=== PATIENT | female | born 1970 | race Caucasian/White ===

== ENCOUNTER 2017-02-17 09:55 | Emergency (ER) | payer MEDICAID ==
[~2017-02-17] VITALS: Ht 157.5 cm; Wt 59.0 kg
[2017-02-17] MEDS ORDERED: KETOROLAC TROMETHAMINE 60 MG/2 ML VIAL IM ONE (10:30)
[2017-02-17] MEDS ORDERED: METHOCARBAMOL 500 MG TABLET PO ONE (10:30)
[2017-02-17 10:58] VITALS: BP 122/70
== END 2017-02-17 11:00 | disposition home or self-care (01) ==
LOC: EMS 09:56
DX: S16.1XXA Strain of muscle, fascia and tendon at neck level, initial encounter (principal); X58.XXXA Exposure to other specified factors, initial encounter; Y93.89 Activity, other specified; Y92.098 Other place in other non-institutional residence as the place of occurrence of the external cause; Y99.8 Other external cause status
CPT/HCPCS: 96372; 99283; J1885

== ENCOUNTER 2017-03-23 23:05 | Emergency (ER) | payer MEDICAID ==
[~2017-03-23] VITALS: Ht 157.5 cm; Wt 50.0 kg
[2017-03-24 00:27] VITALS: BP 155/76
== END 2017-03-24 01:27 | disposition left against medical advice (07) ==
LOC: EMS 23:09
DX: H57.8 Other specified disorders of eye and adnexa (principal); H53.142 Visual discomfort, left eye
CPT/HCPCS: 99281

== ENCOUNTER 2018-01-04 19:12 | Inpatient (IN) | payer SELFPAY ==
[~2018-01-04] VITALS: Ht 160 cm; Wt 44.5 kg
[2018-01-04 19:54] LABS: APPEARANCE,URINE CLOUDY (CLEAR); BILIRUBIN,URINE NEGATIVE (NEGATIVE); GLUCOSE, URINE (UA) >=1000 mg/dL (NEGATIVE); KETONES,URINE NEGATIVE (NEGATIVE); LEUKOCYTE ESTERASE ,URINE MODERATE (NEGATIVE); NITRATE,URINE NEGATIVE (NEGATIVE); OCCULT BLOOD,URINE SMALL (NEGATIVE); PH,URINE 5.5 (5.0-8.0); PROTEIN,URINE NEGATIVE (NEGATIVE); UROBILINOGEN,URINE 0.2 mg/dL (<=1.0)
[2018-01-04 20:05] LABS: BASOPHILS % (AUTO) 0.2 % (0.0-2.0); EOSINOPHILS % (AUTO) 1.1 % (1.0-6.0); HEMATOCRIT 43.3 % (36-46); LYMPHOCYTES # (AUTO) 1.4 K/uL (1.0-4.8); LYMPHOCYTES % (AUTO) 27.4 % (22.0-44.0); MEAN CORPUSCULAR HEMOGLOBIN 26.8 pg (26.0-34.0); MEAN CORPUSCULAR HGB CONC 32.4 G/dL (31.0-37.0); MEAN CORPUSCULAR VOLUME 83 fL (80-100); MONOCYTES # (AUTO) 0.5 K/uL (0.1-1.0); MONOCYTES % (AUTO) 10.1 % (2.0-9.0); NEUTROPHILS # (AUTO) 3.2 K/uL (1.8-7.7); NEUTROPHILS % (AUTO) 61.2 % (40.0-70.0); PLATELET COUNT (AUTO) 127 K/uL (150-450); RED BLOOD CELL COUNT(AUTO) 5.25 MIL/uL (4.00-5.20)
[2018-01-04 20:08] LABS: HCG,QUAL RESULT NEGATIVE (NEGATIVE)
[2018-01-04 20:14] LABS: BACTERIA,URINE Few /HPF (None Seen); SQUAMOUS EPITHELIAL CELL,UR Few /LPF (None Seen); WBC,URINE 26-50 /HPF (0-5)
[2018-01-04 20:28] LABS: ALANINE AMINOTRANSFERASE 38 U/L (12-78); ALBUMIN 2.9 g/dL (3.4-5.0); ALKALINE PHOSPHATASE 168 U/L (46-116); ANION GAP 10 mmol/L (8-16); ASPARTATE AMINOTRANSFERASE 23 U/L (15-37); BILIRUBIN,TOTAL 0.5 mg/dL (0.1-1.0); CALCIUM, TOTAL 8.7 mg/dL (8.8-10.5); CARBON DIOXIDE 26 mmol/L (22-29); CHLORIDE 96 mmol/L (98-107); CREATININE 0.68 mg/dL (0.60-1.30); GLOMERULAR FILTR. RATE CALC > 60 mL/min (>60); POTASSIUM 4.3 mmol/L (3.5-5.1); SODIUM SERUM 132 mmol/L (136-145); TOTAL PROTEIN, SERUM 7.3 g/dL (6.4-8.2); UREA NITROGEN, BLOOD 11 mg/dL (7-18)
[2018-01-04 20:31] LABS: GLUCOSE,RANDOM 580 mg/dL (70-110)
[2018-01-04 21:37] LABS: GLUCOSE,POINT OF CARE 477 MG/DL (70-110)
[2018-01-04] MEDS ORDERED: INSULIN REGULAR, HUMAN 100 UNITS/ML IVP ONE (22:15)
[2018-01-04] MEDS ORDERED: SODIUM CHLORIDE 0.9% 1,000 ML IV ONE (22:15)
[2018-01-04] MEDS ORDERED: METOPROLOL TARTRATE 50 MG TABLET PO ONE (22:45)
[2018-01-04] MEDS ORDERED: ASPIRIN 325 MG TABLET PO ONE (22:45)
[2018-01-04] MEDS ORDERED: CefTRIAXone SODIUM 1 GM in DEXTROSE 5%-WATER 10 ML IV ONE (22:45)
[2018-01-04] MEDS ORDERED: ACETAMINOPHEN 325 MG TABLET PO PRN (22:45)
[2018-01-04] MEDS ORDERED: 0.9% SODIUM CHLORIDE 10 ML SYRINGE IVP PRN (22:45)
[2018-01-04] MEDS ORDERED: ONDANSETRON HCL 4 MG/2 ML VIAL IVP PRN (22:45)
[2018-01-04] MEDS ORDERED: DIGOXIN 250 MCG/ML 2 ML AMP IVP ONE (22:45)
[2018-01-05] VITALS (7 sets, daily range): BP systolic 139–159; BP diastolic 58–85
[2018-01-05] MEDS ORDERED: ALBUTEROL SULFATE 2.5 MG/0.5 ML NEB SOLUTION NEB PRN
[2018-01-05] MEDS ORDERED: ZOLPIDEM TARTRATE 5 MG TABLET PO PRN
[2018-01-05] MEDS ORDERED: IPRATROPIUM BROMIDE 0.5 MG/2.5 ML NEB SOLUTION NEB PRN
[2018-01-05] MEDS ORDERED: MORPHINE SULFATE 2 MG/ML SYRINGE IVP PRN
[2018-01-05] MEDS ORDERED: DEXTROSE 50%-WATER 25 GM/50 ML SYRINGE IVP PRN
[2018-01-05] MEDS ORDERED: BISACODYL 10 MG RECTAL RECTAL SUPPOSITORY PR PRN
[2018-01-05] MEDS ORDERED: OxyCODONE HCL/ACETAMINOPHEN 5-325 MG TABLET PO PRN
[2018-01-05] MEDS ORDERED: ACETAMINOPHEN 325 MG TABLET PO PRN
[2018-01-05] MEDS ORDERED: MAGNESIUM HYDROXIDE SUSPENSION 30 ML UDCUP PO PRN
[2018-01-05] MEDS ORDERED: ONDANSETRON HCL 4 MG/2 ML VIAL IVP PRN
[2018-01-05 05:39] LABS: BASOPHILS % (AUTO) 0.2 % (0.0-2.0); EOSINOPHILS % (AUTO) 0.6 % (1.0-6.0); HEMATOCRIT 41.7 % (36-46); HEMOGLOBIN 13.5 g/dL (12.0-16.0); LYMPHOCYTES # (AUTO) 2.8 K/uL (1.0-4.8); LYMPHOCYTES % (AUTO) 34.3 % (22.0-44.0); MEAN CORPUSCULAR HEMOGLOBIN 26.4 pg (26.0-34.0); MEAN CORPUSCULAR HGB CONC 32.4 G/dL (31.0-37.0); MEAN CORPUSCULAR VOLUME 81 fL (80-100); MONOCYTES # (AUTO) 0.8 K/uL (0.1-1.0); MONOCYTES % (AUTO) 9.5 % (2.0-9.0); NEUTROPHILS # (AUTO) 4.6 K/uL (1.8-7.7); NEUTROPHILS % (AUTO) 55.4 % (40.0-70.0); PLATELET COUNT (AUTO) 131 K/uL (150-450); RED BLOOD CELL COUNT(AUTO) 5.12 MIL/uL (4.00-5.20)
[2018-01-05 05:45] LABS: INR 1.1 (0.9-1.1); PROTHROMBIN TIME 11.4 SEC (9.4-11.6)
[2018-01-05] MEDS: PROMETHAZINE HCL/CODEINE 6.25-10MG/5ML SYRUP UDCUP PO PRN ×2 (05:52→12:32)
[2018-01-05] MEDS: INSULIN ASPART 100 UNITS/ML SQ PRN ×4 (05:52→20:46)
[2018-01-05 06:05] LABS: HEMOGLOBIN A1C 11.9 % (4.5-6.2)
[2018-01-05 06:10] LABS: ALANINE AMINOTRANSFERASE 53 U/L (12-78); ALBUMIN 2.6 g/dL (3.4-5.0); ALKALINE PHOSPHATASE 175 U/L (46-116); ANION GAP 9 mmol/L (8-16); ASPARTATE AMINOTRANSFERASE 64 U/L (15-37); BILIRUBIN,TOTAL 0.5 mg/dL (0.1-1.0); CALCIUM, TOTAL 8.3 mg/dL (8.8-10.5); CARBON DIOXIDE 26 mmol/L (22-29); CHLORIDE 102 mmol/L (98-107); CHOL/HDL RATIO 1.8 (3.9-5.7); CHOLESTEROL 86 mg/dL (131-200); CREATININE 0.54 mg/dL (0.60-1.30); GLOMERULAR FILTR. RATE CALC > 60 mL/min (>60); GLUCOSE,RANDOM 291 mg/dL (70-110); HDL CHOLESTEROL 47 mg/dL (40-60); LDL CHOL (CALC.) 28 mg/dL (0-130); PHOSPHORUS 4.3 mg/dL (2.5-4.9); POTASSIUM 4.7 mmol/L (3.5-5.1); SODIUM SERUM 137 mmol/L (136-145); TOTAL PROTEIN, SERUM 6.7 g/dL (6.4-8.2); TRIGLYCERIDES 55 mg/dL (15-150); UREA NITROGEN, BLOOD 14 mg/dL (7-18)
[2018-01-05] MEDS ORDERED: MAGNESIUM SULFATE 4 GM/WATER 100 ML IV PRN (08:30)
[2018-01-05] MEDS ORDERED: MAGNESIUM OXIDE 400 MG TABLET PO PRN (08:30)
[2018-01-05] MEDS: METOPROLOL TARTRATE 25 MG TABLET PO SCH ×2 (09:06→20:43)
[2018-01-05] MEDS: HEPARIN SODIUM,PORCINE 5,000 UNITS/ML VIAL SQ SCH ×2 (09:06→20:43)
[2018-01-05] MEDS: PANTOPRAZOLE SODIUM 40 MG DR TABLET PO SCH (09:06)
[2018-01-05] MEDS: ASPIRIN 81 MG EC TABLET PO SCH (09:06)
[2018-01-05] MEDS: MetFORMIN HCL 500 MG TABLET PO SCH ×2 (09:06→17:45)
[2018-01-05] MEDS ORDERED: SODIUM CHLORIDE 0.9% 100 ML ONE (10:32)
[2018-01-05 10:48] LABS: GLUCOMETER DEV NAME(LOC) 5S 1M; GLUCOSE,POINT OF CARE 249 MG/DL (70-110)
[2018-01-05] MEDS: APIXABAN 5 MG TABLET PO SCH ×2 (11:01→20:43)
[2018-01-05 11:16] LABS: THYROID STIMULATING HORMONE < 0.01 uIU/mL (0.36-3.74)
[2018-01-05] MEDS: MAGNESIUM SULFATE 2 GM in DEXTROSE 5%-WATER 50 ML IV PRN (12:12)
[2018-01-05 13:37] LABS: GLUCOMETER DEV NAME(LOC) 5S 1M; GLUCOSE,POINT OF CARE 199 MG/DL (70-110)
[2018-01-05] MEDS ORDERED: CefTRIAXone SODIUM 1 GM in DEXTROSE 5%-WATER 10 ML IV SCH (23:00)
[2018-01-06 00:08] LABS: GLUCOMETER DEV NAME(LOC) 5N 2S; GLUCOSE,POINT OF CARE 190 MG/DL (70-110)
[2018-01-06 00:08] LABS: GLUCOMETER DEV NAME(LOC) 5S 1M; GLUCOSE,POINT OF CARE 212 MG/DL (70-110)
[2018-01-06 04:03] VITALS: BP 148/66
[2018-01-06] MEDS: INSULIN ASPART 100 UNITS/ML SQ PRN ×3 (06:01→17:19)
[2018-01-06 06:15] LABS: BASOPHILS % (AUTO) 0.3 % (0.0-2.0); EOSINOPHILS % (AUTO) 0.1 % (1.0-6.0); HEMATOCRIT 43.2 % (36-46); HEMOGLOBIN 14.4 g/dL (12.0-16.0); LYMPHOCYTES # (AUTO) 3.8 K/uL (1.0-4.8); LYMPHOCYTES % (AUTO) 38.6 % (22.0-44.0); MEAN CORPUSCULAR HGB CONC 33.4 G/dL (31.0-37.0); MEAN CORPUSCULAR VOLUME 81 fL (80-100); MONOCYTES # (AUTO) 0.9 K/uL (0.1-1.0); MONOCYTES % (AUTO) 9.2 % (2.0-9.0); NEUTROPHILS # (AUTO) 5.1 K/uL (1.8-7.7); NEUTROPHILS % (AUTO) 51.8 % (40.0-70.0); PLATELET COUNT (AUTO) 152 K/uL (150-450); RED BLOOD CELL COUNT(AUTO) 5.34 MIL/uL (4.00-5.20); RED CELL DISTRIBUTION WIDTH 13.9 % (11.5-14.5)
[2018-01-06 06:34] LABS: ALANINE AMINOTRANSFERASE 46 U/L (12-78); ALBUMIN 2.5 g/dL (3.4-5.0); ALKALINE PHOSPHATASE 162 U/L (46-116); ANION GAP 14 mmol/L (8-16); ASPARTATE AMINOTRANSFERASE 39 U/L (15-37); BILIRUBIN,TOTAL 0.9 mg/dL (0.1-1.0); CALCIUM, TOTAL 8.5 mg/dL (8.8-10.5); CARBON DIOXIDE 22 mmol/L (22-29); CHLORIDE 100 mmol/L (98-107); CREATININE 0.57 mg/dL (0.60-1.30); GLOMERULAR FILTR. RATE CALC > 60 mL/min (>60); GLUCOSE,RANDOM 107 mg/dL (70-110); POTASSIUM 4.3 mmol/L (3.5-5.1); SODIUM SERUM 136 mmol/L (136-145); TOTAL PROTEIN, SERUM 6.7 g/dL (6.4-8.2); UREA NITROGEN, BLOOD 24 mg/dL (7-18)
[2018-01-06 07:42] LABS: GLUCOMETER DEV NAME(LOC) 5S 1M; GLUCOSE,POINT OF CARE 99 MG/DL (70-110)
[2018-01-06 07:55] VITALS: BP 125/59
[2018-01-06] MEDS: MAGNESIUM SULFATE 2 GM in DEXTROSE 5%-WATER 50 ML IV PRN (09:36)
[2018-01-06 10:40] VITALS: BP 122/53
[2018-01-06] MEDS ORDERED: SESTAMIBI TC99M/UD ISOTOPE 1 EA INJ INJ ONE (11:05)
[2018-01-06] MEDS ORDERED: REGADENOSON 0.4 MG/5 ML PF SYRINGE IVP ONE ×2 (11:06→17:56)
[2018-01-06 11:14] VITALS: BP 122/53
[2018-01-06] MEDS ORDERED: BENZONATATE 100 MG CAPSULE PO PRN (11:30)
[2018-01-06 12:00] VITALS: BP 122/55
[2018-01-06] MEDS: ASPIRIN 81 MG EC TABLET PO SCH (12:19)
[2018-01-06] MEDS: METOPROLOL TARTRATE 25 MG TABLET PO SCH ×2 (12:19→20:24)
[2018-01-06] MEDS: HEPARIN SODIUM,PORCINE 5,000 UNITS/ML VIAL SQ SCH ×2 (12:19→20:24)
[2018-01-06] MEDS: PANTOPRAZOLE SODIUM 40 MG DR TABLET PO SCH (12:19)
[2018-01-06 19:25] VITALS: BP 111/66
[2018-01-06 20:23] LABS: GLUCOMETER DEV NAME(LOC) 5S 1M; GLUCOSE,POINT OF CARE 197 MG/DL (70-110)
[2018-01-06] MEDS: APIXABAN 5 MG TABLET PO SCH ×2 (20:24→20:30)
[2018-01-06 23:22] LABS: GLUCOMETER DEV NAME(LOC) 5N 2S; GLUCOSE,POINT OF CARE 299 MG/DL (70-110)
[2018-01-07] MEDS ORDERED: MetFORMIN HCL 500 MG TABLET PO SCH (09:00)
[2018-01-07] MEDS ORDERED: MULTIVITAMINS WITH MINERALS, THERAPEUTIC TABLET PO SCH (09:00)
== END 2018-01-06 20:20 | disposition left against medical advice (07) | DRG 308 ==
LOC: EMS 19:14 → 5N 22:30
PROVIDERS: ADMIT Internal Medicine; ATTEND Internal Medicine
DX: I48.91 Unspecified atrial fibrillation (principal); E43 Unspecified severe protein-calorie malnutrition; E87.1 Hypo-osmolality and hyponatremia; N39.0 Urinary tract infection, site not specified; Z68.1 Body mass index [BMI] 19.9 or less, adult; E11.65 Type 2 diabetes mellitus with hyperglycemia; E83.51 Hypocalcemia; E86.0 Dehydration; F17.200 Nicotine dependence, unspecified, uncomplicated; J44.9 Chronic obstructive pulmonary disease, unspecified; Z79.4 Long term (current) use of insulin; Z91.19 Patient's noncompliance with other medical treatment and regimen
CPT/HCPCS: 71046; 78452; 82306; 82962; 83036; 83735; 84100; 84443; 87086; 93005; 93017; 93306; 96361; 96374; 96375; 99291; A9500; J0696; J1160; J1644; J1815; J2405; J2785; J3475; J7030; J7050; J7060

== ENCOUNTER 2019-10-25 13:45 | Inpatient (IN) | payer MEDICAID, OTHER ==
[~2019-10-25] VITALS: Ht 165.1 cm; Wt 52.1 kg
[2019-10-25 14:56] LABS: BASOPHILS % (AUTO) 0.1 % (0.0-2.0); EOSINOPHILS % (AUTO) 0 % (1.0-6.0); HEMATOCRIT 28.4 % (36-46); HEMOGLOBIN 9.1 g/dL (12.0-16.0); LYMPHOCYTES # (AUTO) 1.4 K/uL (1.0-4.8); LYMPHOCYTES % (AUTO) 12.3 % (22.0-44.0); MEAN CORPUSCULAR HEMOGLOBIN 27.6 pg (26.0-34.0); MEAN CORPUSCULAR HGB CONC 32.2 G/dL (31.0-37.0); MEAN CORPUSCULAR VOLUME 86 fL (80-100); MONOCYTES # (AUTO) 0.7 K/uL (0.1-1.0); MONOCYTES % (AUTO) 6.2 % (2.0-9.0); NEUTROPHILS # (AUTO) 9.5 K/uL (1.8-7.7); NEUTROPHILS % (AUTO) 81.4 % (40.0-70.0); PLATELET COUNT (AUTO) 116 K/uL (150-450); RED BLOOD CELL COUNT(AUTO) 3.31 MIL/uL (4.00-5.20); RED CELL DISTRIBUTION WIDTH 15.4 % (11.5-14.5)
[2019-10-25 15:10] LABS: ANION GAP 11 mmol/L (8-16); CALCIUM, TOTAL 8.5 mg/dL (8.8-10.5); CARBON DIOXIDE 21 mmol/L (22-29); CHLORIDE 101 mmol/L (98-107); CREATININE 0.88 mg/dL (0.60-1.30); GLOMERULAR FILTR. RATE CALC > 60 mL/min (>60); GLUCOSE,RANDOM 101 mg/dL (70-110); POTASSIUM 4.8 mmol/L (3.5-5.1); SODIUM SERUM 133 mmol/L (136-145); UREA NITROGEN, BLOOD 29 mg/dL (7-18)
[2019-10-25 15:15] LABS: ALANINE AMINOTRANSFERASE 18 U/L (12-78); ALBUMIN 2.6 g/dL (3.4-5.0); ALKALINE PHOSPHATASE 114 U/L (46-116); ASPARTATE AMINOTRANSFERASE 42 U/L (15-37); BILIRUBIN,TOTAL 2.5 mg/dL (0.1-1.0); TOTAL PROTEIN, SERUM 7.3 g/dL (6.4-8.2)
[2019-10-25] MEDS ORDERED: LORazepam 2 MG/ML VIAL IVP ONE ×2 (16:30)
[2019-10-25] MEDS ORDERED: DILTIAZEM HCL 5 MG/ML 5 ML VIAL IVP ONE (16:30)
[2019-10-25] MEDS ORDERED: ASPIRIN 325 MG TABLET PO ONE (16:30)
[2019-10-25] MEDS ORDERED: 0.9% SODIUM CHLORIDE 10 ML SYRINGE IVP PRN ×2 (16:45→20:45)
[2019-10-25] MEDS ORDERED: ONDANSETRON HCL 4 MG/2 ML VIAL IVP PRN ×2 (16:45→20:45)
[2019-10-25] MEDS ORDERED: ACETAMINOPHEN 325 MG TABLET PO PRN (16:45)
[2019-10-25 17:45] LABS: INR 3.5 (0.9-1.1)
[2019-10-25 17:55] LABS: B-TYPE NATRIURETIC PEPTIDE 874 pg/mL (0-100)
[2019-10-25 18:07] LABS: PROTHROMBIN TIME 35.9 SEC (9.4-11.6)
[2019-10-25 18:18] LABS: CREATINE KINASE, TOTAL ONLY 430 U/L (26-192); FREE T4 (FREE THYROXINE) 6.29 ng/dL (0.76-1.46); LIPASE 61 U/L (73-393)
[2019-10-25 18:19] LABS: THYROID STIMULATING HORMONE < 0.01 uIU/mL (0.36-3.74)
[2019-10-25 18:49] LABS: LACTIC ACID 2.4 mmol/L (0.4-2.0)
[2019-10-25 19:09] VITALS: BP 155/76
[2019-10-25] MEDS ORDERED: DEXTROSE 50%-WATER 25 GM/50 ML SYRINGE IVP PRN (20:45)
[2019-10-25] MEDS ORDERED: ZOLPIDEM TARTRATE 5 MG TABLET PO PRN (20:45)
[2019-10-25] MEDS ORDERED: MAGNESIUM SULFATE 4 GM/WATER 100 ML IV PRN (20:45)
[2019-10-25] MEDS ORDERED: MAGNESIUM SULFATE 2 GM/WATER 50 ML IV PRN (20:45)
[2019-10-25] MEDS ORDERED: POTASSIUM CHLORIDE 20 MEQ ER TABLET PO PRN (20:45)
[2019-10-25] MEDS ORDERED: POTASSIUM CHL 10 MEQ/WATER 50 ML IV PRN (20:45)
[2019-10-25] MEDS: PANTOPRAZOLE SODIUM 40 MG DR TABLET PO SCH (21:58)
[2019-10-25] MEDS ORDERED: SODIUM CHLORIDE 0.9% 250 ML IV ONE (23:00)
[2019-10-25 23:57] VITALS: BP 145/82
[2019-10-26] VITALS (7 sets, daily range): BP systolic 128–154; BP diastolic 54–81
[2019-10-26] MEDS ORDERED: INFLUENZA VIRUS VACCINE QVS 2019-20 (3YR+)/PF 60 MCG/0.5 ML SYRINGE IM ONE (00:30)
[2019-10-26 03:33] LABS: INFLUENZA TYPE A NEGATIVE FOR TYPE A (NEGATIVE); INFLUENZA TYPE B NEGATIVE FOR TYPE B (NEGATIVE)
[2019-10-26] MEDS: INSULIN LISPRO 100 UNITS/ML SQ PRN ×2 (06:22→20:24)
[2019-10-26 06:39] LABS: GLUCOMETER DEV NAME(LOC) 5N.1; GLUCOSE,POINT OF CARE 95 MG/DL (70-110)
[2019-10-26 06:39] LABS: GLUCOMETER DEV NAME(LOC) 5N.1; GLUCOSE,POINT OF CARE 167 MG/DL (70-110)
[2019-10-26] MEDS: PANTOPRAZOLE SODIUM 40 MG DR TABLET PO SCH (08:37)
[2019-10-26 09:44] LABS: BASOPHILS % (AUTO) 0.1 % (0.0-2.0); EOSINOPHILS % (AUTO) 0 % (1.0-6.0); HEMATOCRIT 26.8 % (36-46); HEMOGLOBIN 9.1 g/dL (12.0-16.0); LYMPHOCYTES # (AUTO) 1.2 K/uL (1.0-4.8); LYMPHOCYTES % (AUTO) 18.8 % (22.0-44.0); MEAN CORPUSCULAR VOLUME 85 fL (80-100); MONOCYTES # (AUTO) 0.8 K/uL (0.1-1.0); MONOCYTES % (AUTO) 12.4 % (2.0-9.0); NEUTROPHILS # (AUTO) 4.2 K/uL (1.8-7.7); NEUTROPHILS % (AUTO) 68.7 % (40.0-70.0); PLATELET COUNT (AUTO) 91 K/uL (150-450); RED BLOOD CELL COUNT(AUTO) 3.15 MIL/uL (4.00-5.20); RED CELL DISTRIBUTION WIDTH 15.5 % (11.5-14.5)
[2019-10-26 09:47] LABS: APPEARANCE,URINE CLOUDY (CLEAR); BILIRUBIN,URINE NEGATIVE (NEGATIVE); GLUCOSE, URINE (UA) NEGATIVE (NEGATIVE); KETONES,URINE TRACE mg/dL (NEGATIVE); LEUKOCYTE ESTERASE ,URINE SMALL (NEGATIVE); NITRATE,URINE NEGATIVE (NEGATIVE); OCCULT BLOOD,URINE LARGE (NEGATIVE); PROTEIN,URINE SEE CONFIRM (NEGATIVE)
[2019-10-26 09:53] LABS: INR 2.4 (0.9-1.1); PROTHROMBIN TIME 24.4 SEC (9.4-11.6)
[2019-10-26 09:59] LABS: BACTERIA,URINE Many /HPF (None Seen); SQUAMOUS EPITHELIAL CELL,UR Moderate /LPF (None Seen); SULFOSALICYLIC ACID,URINE 2+ (Negative)
[2019-10-26 10:00] LABS: AMPHET/METH SCREEN,URINE POSITIVE (NEGATIVE); BARBITURATE SCREEN, URINE NEGATIVE (NEGATIVE); BENZODIAZEPINES SCREEN,URINE NEGATIVE (NEGATIVE); CANNABINOID SCREEN,URINE NEGATIVE (NEGATIVE); COCAINE SCREEN,URINE NEGATIVE (NEGATIVE); METHADONE SCREEN, URINE NEGATIVE (NEGATIVE); OPIATE SCREEN,URINE NEGATIVE (NEGATIVE); PHENCYCLIDINE SCREEN,URINE NEGATIVE (NEGATIVE)
[2019-10-26 10:12] LABS: LACTIC ACID 1.6 mmol/L (0.4-2.0)
[2019-10-26 10:32] LABS: ANION GAP 8 mmol/L (8-16); CALCIUM, TOTAL 7.8 mg/dL (8.8-10.5); CARBON DIOXIDE 24 mmol/L (22-29); CHLORIDE 107 mmol/L (98-107); CREATINE KINASE, TOTAL ONLY 121 U/L (26-192); CREATININE 0.93 mg/dL (0.60-1.30); GLOMERULAR FILTR. RATE CALC > 60 mL/min (>60); GLUCOSE,RANDOM 79 mg/dL (70-110); POTASSIUM 4.3 mmol/L (3.5-5.1); SODIUM SERUM 139 mmol/L (136-145); UREA NITROGEN, BLOOD 27 mg/dL (7-18)
[2019-10-26 10:49] LABS: B-TYPE NATRIURETIC PEPTIDE 1890 pg/mL (0-100)
[2019-10-26] MEDS ORDERED: HEPARIN SODIUM 25000 UNITS/D5W 250 ML IV PRN (14:23)
[2019-10-26] MEDS ORDERED: HEPARIN SODIUM,PORCINE 5,000 UNITS/ML VIAL IVP PRN ×2 (14:30)
[2019-10-26] MEDS ORDERED: HEPARIN SODIUM,PORCINE 5,000 UNITS/ML VIAL IVP ONE (14:30)
[2019-10-26 15:21] LABS: BASOPHILS % (AUTO) 0.2 % (0.0-2.0); EOSINOPHILS % (AUTO) 0 % (1.0-6.0); HEMATOCRIT 26.9 % (36-46); HEMOGLOBIN 8.9 g/dL (12.0-16.0); LYMPHOCYTES # (AUTO) 1.4 K/uL (1.0-4.8); LYMPHOCYTES % (AUTO) 25.2 % (22.0-44.0); MEAN CORPUSCULAR HEMOGLOBIN 28.6 pg (26.0-34.0); MEAN CORPUSCULAR HGB CONC 33.2 G/dL (31.0-37.0); MEAN CORPUSCULAR VOLUME 86 fL (80-100); MONOCYTES # (AUTO) 0.7 K/uL (0.1-1.0); MONOCYTES % (AUTO) 13.3 % (2.0-9.0); NEUTROPHILS # (AUTO) 3.4 K/uL (1.8-7.7); NEUTROPHILS % (AUTO) 61.3 % (40.0-70.0); RED BLOOD CELL COUNT(AUTO) 3.12 MIL/uL (4.00-5.20); RED CELL DISTRIBUTION WIDTH 15.8 % (11.5-14.5)
[2019-10-26 15:34] LABS: INR 2.4 (0.9-1.1); PROTHROMBIN TIME 24.4 SEC (9.4-11.6)
[2019-10-26] MEDS: BENZONATATE 100 MG CAPSULE PO SCH ×2 (16:11→20:15)
[2019-10-26 16:23] LABS: PLATELET COUNT (AUTO) 67 K/uL (150-450)
[2019-10-26 19:56] LABS: GLUCOMETER DEV NAME(LOC) 5N.1; GLUCOSE,POINT OF CARE 169 MG/DL (70-110)
[2019-10-26] MEDS: MAGNESIUM OXIDE 400 MG TABLET PO PRN (20:15)
[2019-10-26] MEDS: ACETAMINOPHEN 325 MG TABLET PO PRN (21:00)
[2019-10-27] MEDS ORDERED: IOVERSOL 350 MG/ML 100 ML VIAL ONE (03:05)
[2019-10-27] MEDS ORDERED: SODIUM CHLORIDE 0.9% 100 ML ONE (03:05)
[2019-10-27 05:18] VITALS: BP 120/50
[2019-10-27 07:24] VITALS: BP 109/70
[2019-10-27 07:57] LABS: BASOPHILS % (AUTO) 0.5 % (0.0-2.0); EOSINOPHILS % (AUTO) 0.1 % (1.0-6.0); HEMATOCRIT 27.8 % (36-46); HEMOGLOBIN 9.3 g/dL (12.0-16.0); LYMPHOCYTES # (AUTO) 1.2 K/uL (1.0-4.8); LYMPHOCYTES % (AUTO) 21.9 % (22.0-44.0); MEAN CORPUSCULAR HEMOGLOBIN 28.8 pg (26.0-34.0); MEAN CORPUSCULAR HGB CONC 33.3 G/dL (31.0-37.0); MEAN CORPUSCULAR VOLUME 86 fL (80-100); MONOCYTES # (AUTO) 0.6 K/uL (0.1-1.0); MONOCYTES % (AUTO) 11.1 % (2.0-9.0); NEUTROPHILS # (AUTO) 3.5 K/uL (1.8-7.7); NEUTROPHILS % (AUTO) 66.4 % (40.0-70.0); PLATELET COUNT (AUTO) 71 K/uL (150-450); RED BLOOD CELL COUNT(AUTO) 3.21 MIL/uL (4.00-5.20); RED CELL DISTRIBUTION WIDTH 15.7 % (11.5-14.5)
[2019-10-27] MEDS: BENZONATATE 100 MG CAPSULE PO SCH ×3 (08:01→20:10)
[2019-10-27] MEDS: PANTOPRAZOLE SODIUM 40 MG DR TABLET PO SCH (08:01)
[2019-10-27] MEDS: MAGNESIUM OXIDE 400 MG TABLET PO PRN ×2 (08:01→17:57)
[2019-10-27] MEDS ORDERED: HEPARIN SODIUM 25000 UNITS/D5W 250 ML IV PRN (08:12)
[2019-10-27 08:16] LABS: B-TYPE NATRIURETIC PEPTIDE 1610 pg/mL (0-100)
[2019-10-27] MEDS ORDERED: HEPARIN SODIUM,PORCINE 5,000 UNITS/ML VIAL IVP PRN ×3 (08:30→10:15)
[2019-10-27] MEDS: HEPARIN SODIUM 25000 UNITS/D5W 250 ML IV PRN ×2 (08:33→17:41)
[2019-10-27 08:34] LABS: ANION GAP 7 mmol/L (8-16); CALCIUM, TOTAL 7.6 mg/dL (8.8-10.5); CARBON DIOXIDE 25 mmol/L (22-29); CHLORIDE 107 mmol/L (98-107); CREATINE KINASE, TOTAL ONLY 103 U/L (26-192); CREATININE 0.81 mg/dL (0.60-1.30); GLOMERULAR FILTR. RATE CALC > 60 mL/min (>60); GLUCOSE,RANDOM 96 mg/dL (70-110); PHOSPHORUS 2.9 mg/dL (2.5-4.9); POTASSIUM 4.2 mmol/L (3.5-5.1); SODIUM SERUM 139 mmol/L (136-145); UREA NITROGEN, BLOOD 23 mg/dL (7-18)
[2019-10-27] MEDS ORDERED: *CLINICAL-ARGATROBAN DOSING CLINICAL ONE (09:00)
[2019-10-27] MEDS ORDERED: ARGATROBAN 250 MG in DEXTROSE 5%-WATER 247.5 ML IV PRN (09:30)
[2019-10-27 09:45] LABS: INR 1.9 (0.9-1.1)
[2019-10-27] MEDS ORDERED: HEPARIN SODIUM,PORCINE 5,000 UNITS/ML VIAL IVP ONE (10:15)
[2019-10-27 10:53] VITALS: BP 132/62
[2019-10-27] MEDS: CefTRIAXone SODIUM 2 GM in DEXTROSE 5%-WATER 50 ML IV SCH (11:15)
[2019-10-27] MEDS: ACETAMINOPHEN 325 MG TABLET PO PRN (11:15)
[2019-10-27] MEDS: INSULIN LISPRO 100 UNITS/ML SQ PRN ×2 (11:27→17:58)
[2019-10-27 15:53] VITALS: BP 118/70
[2019-10-27] MEDS: GuaiFENesin/D-METHORPHAN [SUGAR-FREE] 200-20MG/10 ML SYRUP UDCUP PO PRN (18:52)
[2019-10-27 18:57] LABS: GLUCOMETER DEV NAME(LOC) 5N.1; GLUCOSE,POINT OF CARE 155 MG/DL (70-110)
[2019-10-27 19:28] VITALS: BP 131/72
[2019-10-28 00:13] VITALS: BP 132/78
[2019-10-28] MEDS: GuaiFENesin/D-METHORPHAN [SUGAR-FREE] 200-20MG/10 ML SYRUP UDCUP PO PRN ×2 (01:48→21:14)
[2019-10-28] MEDS: HEPARIN SODIUM,PORCINE 5,000 UNITS/ML VIAL IVP PRN ×2 (03:51→21:33)
[2019-10-28 06:29] VITALS: BP 124/75
[2019-10-28 06:33] LABS: GLUCOMETER DEV NAME(LOC) 5N.1; GLUCOSE,POINT OF CARE 134 MG/DL (70-110)
[2019-10-28 07:15] VITALS: BP 131/79
[2019-10-28] MEDS: PANTOPRAZOLE SODIUM 40 MG DR TABLET PO SCH (09:13)
[2019-10-28] MEDS: BENZONATATE 100 MG CAPSULE PO SCH ×3 (09:13→21:14)
[2019-10-28] MEDS: CefTRIAXone SODIUM 2 GM in DEXTROSE 5%-WATER 50 ML IV SCH (09:13)
[2019-10-28 09:56] LABS: GLUCOMETER DEV NAME(LOC) 5S.1; GLUCOSE,POINT OF CARE 96 MG/DL (70-110)
[2019-10-28 11:10] LABS: GLUCOMETER DEV NAME(LOC) 5N.2; GLUCOSE,POINT OF CARE 218 MG/DL (70-110)
[2019-10-28 11:10] LABS: GLUCOMETER DEV NAME(LOC) 5N.2; GLUCOSE,POINT OF CARE 106 MG/DL (70-110)
[2019-10-28 11:10] LABS: GLUCOMETER DEV NAME(LOC) 5N.2; GLUCOSE,POINT OF CARE 193 MG/DL (70-110)
[2019-10-28 11:42] VITALS: BP 141/82
[2019-10-28 12:44] LABS: BASOPHILS % (AUTO) 0.1 % (0.0-2.0); EOSINOPHILS % (AUTO) 0 % (1.0-6.0); HEMOGLOBIN 9.4 g/dL (12.0-16.0); LYMPHOCYTES # (AUTO) 1.6 K/uL (1.0-4.8); LYMPHOCYTES % (AUTO) 41.7 % (22.0-44.0); MEAN CORPUSCULAR HEMOGLOBIN 28.2 pg (26.0-34.0); MEAN CORPUSCULAR HGB CONC 32.6 G/dL (31.0-37.0); MEAN CORPUSCULAR VOLUME 86 fL (80-100); MONOCYTES # (AUTO) 0.4 K/uL (0.1-1.0); MONOCYTES % (AUTO) 11.2 % (2.0-9.0); NEUTROPHILS # (AUTO) 1.8 K/uL (1.8-7.7); PLATELET COUNT (AUTO) 67 K/uL (150-450); RED BLOOD CELL COUNT(AUTO) 3.35 MIL/uL (4.00-5.20); RED CELL DISTRIBUTION WIDTH 16.1 % (11.5-14.5)
[2019-10-28 13:02] LABS: INR 1.5 (0.9-1.1); PROTHROMBIN TIME 15.5 SEC (9.4-11.6)
[2019-10-28] MEDS: HEPARIN SODIUM 25000 UNITS/D5W 250 ML IV PRN (14:02)
[2019-10-28 16:27] VITALS: BP 124/82
[2019-10-28 19:58] VITALS: BP 139/75
[2019-10-28 23:32] LABS: GLUCOMETER DEV NAME(LOC) 5N.1; GLUCOSE,POINT OF CARE 121 MG/DL (70-110)
[2019-10-28 23:32] LABS: GLUCOMETER DEV NAME(LOC) 5N.1; GLUCOSE,POINT OF CARE 102 MG/DL (70-110)
[2019-10-29] MEDS ORDERED: BENZONATATE 100 MG CAPSULE PO SCH
[2019-10-29 00:04] VITALS: BP 114/66
[2019-10-29] MEDS: HEPARIN SODIUM 25000 UNITS/D5W 250 ML IV PRN (01:53)
[2019-10-29 03:34] LABS: BASOPHILS % (AUTO) 0.2 % (0.0-2.0); EOSINOPHILS % (AUTO) 0.1 % (1.0-6.0); HEMATOCRIT 25.5 % (36-46); HEMOGLOBIN 8.4 g/dL (12.0-16.0); LYMPHOCYTES # (AUTO) 1.9 K/uL (1.0-4.8); LYMPHOCYTES % (AUTO) 53.6 % (22.0-44.0); MEAN CORPUSCULAR HEMOGLOBIN 28.1 pg (26.0-34.0); MEAN CORPUSCULAR HGB CONC 32.8 G/dL (31.0-37.0); MEAN CORPUSCULAR VOLUME 86 fL (80-100); MONOCYTES # (AUTO) 0.3 K/uL (0.1-1.0); NEUTROPHILS # (AUTO) 1.4 K/uL (1.8-7.7); NEUTROPHILS % (AUTO) 38.1 % (40.0-70.0); PLATELET COUNT (AUTO) 60 K/uL (150-450); RED BLOOD CELL COUNT(AUTO) 2.98 MIL/uL (4.00-5.20); RED CELL DISTRIBUTION WIDTH 16.1 % (11.5-14.5)
[2019-10-29 03:44] LABS: ANION GAP 4 mmol/L (8-16); CALCIUM, TOTAL 7.4 mg/dL (8.8-10.5); CARBON DIOXIDE 27 mmol/L (22-29); CHLORIDE 108 mmol/L (98-107); CREATININE 0.73 mg/dL (0.60-1.30); GLOMERULAR FILTR. RATE CALC > 60 mL/min (>60); GLUCOSE,RANDOM 129 mg/dL (70-110); POTASSIUM 4.4 mmol/L (3.5-5.1); SODIUM SERUM 139 mmol/L (136-145); UREA NITROGEN, BLOOD 19 mg/dL (7-18)
[2019-10-29] MEDS: GuaiFENesin/D-METHORPHAN [SUGAR-FREE] 200-20MG/10 ML SYRUP UDCUP PO PRN (05:24)
[2019-10-29] MEDS: MAGNESIUM OXIDE 400 MG TABLET PO PRN ×3 (05:24→16:02)
[2019-10-29] MEDS: INSULIN LISPRO 100 UNITS/ML SQ PRN ×2 (05:38→17:39)
[2019-10-29 05:41] VITALS: BP 141/73
[2019-10-29 08:34] VITALS: BP 161/71
[2019-10-29] MEDS: BENZONATATE 100 MG CAPSULE PO SCH ×2 (10:43→16:02)
[2019-10-29] MEDS: PANTOPRAZOLE SODIUM 40 MG DR TABLET PO SCH (10:43)
[2019-10-29] MEDS: CefTRIAXone SODIUM 2 GM in DEXTROSE 5%-WATER 50 ML IV SCH (10:53)
[2019-10-29 12:56] VITALS: BP 145/68
[2019-10-29] MEDS ORDERED: *CLINICAL-ARGATROBAN DOSING CLINICAL ONE (15:00)
[2019-10-29] MEDS ORDERED: ARGATROBAN 250 MG in DEXTROSE 5%-WATER 247.5 ML IV PRN (15:15)
[2019-10-29 16:13] VITALS: BP 150/77
[2019-10-29 17:00] LABS: GLUCOMETER DEV NAME(LOC) 5N.2; GLUCOSE,POINT OF CARE 163 MG/DL (70-110)
[2019-10-29 19:53] VITALS: BP 124/95
[2019-10-29 20:47] LABS: GLUCOMETER DEV NAME(LOC) 5N.1; GLUCOSE,POINT OF CARE 129 MG/DL (70-110)
[2019-10-29 20:47] LABS: GLUCOMETER DEV NAME(LOC) 5N.1; GLUCOSE,POINT OF CARE 157 MG/DL (70-110)
[2019-10-30 00:07] VITALS: BP 121/54
[2019-10-30 02:00] LABS: GLUCOMETER DEV NAME(LOC) 5N.1; GLUCOSE,POINT OF CARE 100 MG/DL (70-110)
[2019-10-30 05:03] VITALS: BP 123/55
[2019-10-30 05:58] LABS: GLUCOMETER DEV NAME(LOC) 5N.2; GLUCOSE,POINT OF CARE 95 MG/DL (70-110)
[2019-10-30] MEDS: BENZONATATE 100 MG CAPSULE PO SCH ×2 (08:00)
[2019-10-30 08:05] VITALS: BP 131/64
[2019-10-30] MEDS: CefTRIAXone SODIUM 2 GM in DEXTROSE 5%-WATER 50 ML IV SCH (08:58)
[2019-10-30] MEDS: PANTOPRAZOLE SODIUM 40 MG DR TABLET PO SCH (08:58)
[2019-10-30 11:00] VITALS: BP 147/70
[2019-10-30] MEDS ORDERED: APIX5TAB PO (12:41)
[2019-10-30] MEDS ORDERED: MAGNESIUM OXIDE 400 MG TABLET PO ONE (12:45)
[2019-10-30] MEDS ORDERED: APIXABAN 5 MG TABLET PO ONE (12:45)
[2019-10-30] MEDS: INSULIN LISPRO 100 UNITS/ML SQ PRN (13:38)
[2019-10-31 00:36] LABS: GLUCOMETER DEV NAME(LOC) 5N.1; GLUCOSE,POINT OF CARE 157 MG/DL (70-110)
== END 2019-10-30 15:50 | disposition home or self-care (01) | DRG 134 ==
LOC: EMS 13:48 → 5N 16:40
PROVIDERS: ADMIT Internal Medicine; ATTEND Internal Medicine
DX: I26.99 Other pulmonary embolism without acute cor pulmonale (principal); D69.6 Thrombocytopenia, unspecified; I27.21 Secondary pulmonary arterial hypertension; J90 Pleural effusion, not elsewhere classified; I48.20 Chronic atrial fibrillation, unspecified; R18.8 Other ascites; G43.909 Migraine, unspecified, not intractable, without status migrainosus; I82.403 Acute embolism and thrombosis of unspecified deep veins of lower extremity, bilateral; K74.60 Unspecified cirrhosis of liver; E11.9 Type 2 diabetes mellitus without complications; F15.10 Other stimulant abuse, uncomplicated; N39.0 Urinary tract infection, site not specified; I10 Essential (primary) hypertension; I34.0 Nonrheumatic mitral (valve) insufficiency; J44.9 Chronic obstructive pulmonary disease, unspecified; F17.210 Nicotine dependence, cigarettes, uncomplicated; Z91.19 Patient's noncompliance with other medical treatment and regimen; Z83.3 Family history of diabetes mellitus; Z79.4 Long term (current) use of insulin; Z28.21 Immunization not carried out because of patient refusal
CPT/HCPCS: 71260; 76700; 82271; 83036; 83605; 83735; 84100; 84439; 84443; 86022; 87040; 87070; 87086; 87205; 87804; 93005; 93306; 93970; 99291; G0480; J0696; J0883; J1644; J2060; J2405; J3475; J3490; J7050; J7060

== ENCOUNTER 2020-03-11 19:34 | Emergency (ER) | payer OTHER ==
[~2020-03-11] VITALS: Ht 160 cm; Wt 52.3 kg
[~2020-03-11 19:34] MED LIST: APIX5TAB PO
[2020-03-11 19:41] VITALS: BP 160/88
== END 2020-03-11 20:28 | disposition left against medical advice (07) ==
LOC: EMS 19:35
DX: Z11.59 Encounter for screening for other viral diseases (principal); Z53.21 Procedure and treatment not carried out due to patient leaving prior to being seen by health care provider
CPT/HCPCS: 93005

== ENCOUNTER 2021-02-26 19:41 | Emergency (ER) | payer OTHER ==
[~2021-02-26] VITALS: Ht 157.5 cm; Wt 61.8 kg
[~2021-02-26 19:41] MED LIST changes: +AMLO-257 PO; -APIX5TAB PO; +ASPI-1450 PO; +ATOR20TA86 PO; +METH-387 PO; +MULT-1203 PO
[2021-02-26 22:30] LABS: APPEARANCE,URINE CLEAR (CLEAR); BILIRUBIN,URINE NEGATIVE (NEGATIVE); GLUCOSE, URINE (UA) 100 mg/dL (NEGATIVE); KETONES,URINE NEGATIVE (NEGATIVE); LEUKOCYTE ESTERASE ,URINE NEGATIVE (NEGATIVE); NITRATE,URINE NEGATIVE (NEGATIVE); OCCULT BLOOD,URINE SMALL (NEGATIVE); PROTEIN,URINE SEE CONFIRM (NEGATIVE)
[2021-02-26 22:50] LABS: BASOPHILS % (AUTO) 0.4 % (0.0-2.0); EOSINOPHILS % (AUTO) 3.3 % (1.0-6.0); HEMATOCRIT 30.9 % (36-46); HEMOGLOBIN 9.8 g/dL (12.0-16.0); LYMPHOCYTES # (AUTO) 2.1 K/uL (1.0-4.8); MEAN CORPUSCULAR HEMOGLOBIN 27.2 pg (26.0-34.0); MEAN CORPUSCULAR HGB CONC 31.9 G/dL (31.0-37.0); MEAN CORPUSCULAR VOLUME 86 fL (80-100); MONOCYTES # (AUTO) 0.6 K/uL (0.1-1.0); NEUTROPHILS # (AUTO) 6.4 K/uL (1.8-7.7); NEUTROPHILS % (AUTO) 68.3 % (40.0-70.0); PLATELET COUNT (AUTO) 163 K/uL (150-450); RED BLOOD CELL COUNT(AUTO) 3.61 MIL/uL (4.00-5.20); RED CELL DISTRIBUTION WIDTH 16.7 % (11.5-14.5)
[2021-02-26 22:53] LABS: SULFOSALICYLIC ACID,URINE 3+ (Negative)
[2021-02-26 22:55] LABS: BACTERIA,URINE None Seen /HPF (None Seen); RBC,URINE 0-2 /HPF (0-2); SQUAMOUS EPITHELIAL CELL,UR Rare /LPF (None Seen); WBC,URINE 0-2 /HPF (0-5)
[2021-02-26] MEDS: FUROSEMIDE 40 MG/4 ML VIAL IVP ONE (23:00)
[2021-02-26 23:16] LABS: B-TYPE NATRIURETIC PEPTIDE 1690 pg/mL (0-100)
[2021-02-26 23:17] LABS: ANION GAP 7 mmol/L (8-16); CALCIUM, TOTAL 7.9 mg/dL (8.8-10.5); CARBON DIOXIDE 25 mmol/L (22-29); CHLORIDE 104 mmol/L (98-107); CREATININE 0.84 mg/dL (0.60-1.30); GLOMERULAR FILTR. RATE CALC > 60 mL/min (>60); GLUCOSE,RANDOM 215 mg/dL (70-110); POTASSIUM 4.4 mmol/L (3.5-5.1); SODIUM SERUM 136 mmol/L (136-145); UREA NITROGEN, BLOOD 23 mg/dL (7-18)
[2021-02-26 23:19] LABS: D-DIMER 4.89 mg/L FEU (0.00-0.50); INR 1.3 (0.9-1.1); PROTHROMBIN TIME 13.3 SEC (9.4-11.6)
[2021-02-26 23:47] LABS: ALANINE AMINOTRANSFERASE 22 U/L (12-78); ALBUMIN 2.1 g/dL (3.4-5.0); ALKALINE PHOSPHATASE 175 U/L (46-116); ASPARTATE AMINOTRANSFERASE 22 U/L (15-37); BILIRUBIN,TOTAL 0.8 mg/dL (0.1-1.0); CREATINE KINASE, TOTAL ONLY 78 U/L (26-192); TOTAL PROTEIN, SERUM 7.4 g/dL (6.4-8.2)
[2021-02-27] MEDS ORDERED: IOHEXOL 350 MG/ML 150 ML VIAL ONE (00:26)
[2021-02-27] MEDS ORDERED: SODIUM CHLORIDE 0.9% 100 ML ONE (00:27)
[2021-02-27] MEDS ORDERED: INSULIN LISPRO 100 UNITS/ML SQ PRN ×2 (00:45→07:45)
[2021-02-27] MEDS ORDERED: DEXTROSE 50%-WATER 25 GM/50 ML SYRINGE IVP PRN ×2 (00:45→07:45)
[2021-02-27] MEDS ORDERED: ACETAMINOPHEN 325 MG TABLET PO PRN (00:45)
[2021-02-27] MEDS: MORPHINE SULFATE 4 MG/ML SYRINGE IVP ONE (01:33)
[2021-02-27 02:15] LABS: AMPHET/METH SCREEN,URINE POSITIVE (NEGATIVE); BARBITURATE SCREEN, URINE NEGATIVE (NEGATIVE); BENZODIAZEPINES SCREEN,URINE NEGATIVE (NEGATIVE); CANNABINOID SCREEN,URINE NEGATIVE (NEGATIVE); COCAINE SCREEN,URINE NEGATIVE (NEGATIVE); METHADONE SCREEN, URINE NEGATIVE (NEGATIVE); OPIATE SCREEN,URINE NEGATIVE (NEGATIVE)
[2021-02-27 02:20] LABS: PHENCYCLIDINE SCREEN,URINE NEGATIVE (NEGATIVE)
[2021-02-27 02:54] LABS: COVID AG,FIA SOURCE NASOPHARYNGEAL
[2021-02-27] MEDS ORDERED: HEPARIN SODIUM,PORCINE 5,000 UNITS/ML VIAL IVP ONE (04:30)
[2021-02-27] MEDS ORDERED: HEPARIN SODIUM,PORCINE 5,000 UNITS/ML VIAL IVP PRN ×3 (04:30→04:55)
[2021-02-27 04:57] LABS: BASOPHILS % (AUTO) 0.3 % (0.0-2.0); EOSINOPHILS % (AUTO) 2.5 % (1.0-6.0); HEMATOCRIT 28.5 % (36-46); HEMOGLOBIN 9.2 g/dL (12.0-16.0); LYMPHOCYTES # (AUTO) 1.8 K/uL (1.0-4.8); LYMPHOCYTES % (AUTO) 20.7 % (22.0-44.0); MEAN CORPUSCULAR HEMOGLOBIN 27.3 pg (26.0-34.0); MEAN CORPUSCULAR HGB CONC 32.2 G/dL (31.0-37.0); MEAN CORPUSCULAR VOLUME 85 fL (80-100); MONOCYTES # (AUTO) 0.5 K/uL (0.1-1.0); MONOCYTES % (AUTO) 5.8 % (2.0-9.0); NEUTROPHILS % (AUTO) 70.7 % (40.0-70.0); PLATELET COUNT (AUTO) 150 K/uL (150-450); RED BLOOD CELL COUNT(AUTO) 3.36 MIL/uL (4.00-5.20); RED CELL DISTRIBUTION WIDTH 16.4 % (11.5-14.5)
[2021-02-27] MEDS: HEPARIN SODIUM,PORCINE 5,000 UNITS/ML VIAL IVP ONE (04:57)
[2021-02-27] MEDS: HEPARIN SODIUM 25000 UNITS/D5W 250 ML IV PRN (04:58)
[2021-02-27 05:10] LABS: INR 1.3 (0.9-1.1); PROTHROMBIN TIME 13.4 SEC (9.4-11.6)
[2021-02-27 08:00] VITALS: BP 138/77
[2021-02-27] MEDS: DOCUSATE SODIUM 100 MG CAPSULE PO SCH (09:03)
[2021-02-27] MEDS: FAMOTIDINE 20 MG TABLET PO SCH (09:03)
[2021-02-27] MEDS: METOPROLOL TARTRATE 25 MG TABLET PO SCH (09:03)
[2021-02-27] MEDS: ATORVASTATIN CALCIUM 40 MG TABLET PO SCH (09:03)
[2021-02-27] MEDS: FUROSEMIDE 20 MG/2 ML VIAL IVP SCH (09:05)
== END 2021-02-27 11:19 | disposition admitted as inpatient to this hospital (09) ==
LOC: EMS 19:41
DX: I21.4 Non-ST elevation (NSTEMI) myocardial infarction (principal); I50.9 Heart failure, unspecified; J90 Pleural effusion, not elsewhere classified; K74.60 Unspecified cirrhosis of liver; E43 Unspecified severe protein-calorie malnutrition; I48.91 Unspecified atrial fibrillation; R60.1 Generalized edema; E11.9 Type 2 diabetes mellitus without complications; F15.10 Other stimulant abuse, uncomplicated; J45.909 Unspecified asthma, uncomplicated; F17.210 Nicotine dependence, cigarettes, uncomplicated; Z91.19 Patient's noncompliance with other medical treatment and regimen; Z79.899 Other long term (current) drug therapy; Z79.82 Long term (current) use of aspirin; Z20.822 Contact with and (suspected) exposure to COVID-19
CPT/HCPCS: 36415; 71046; 71275; 72191; 74175; 80053; 80307; 81001; 81002; 82140; 82550; 83880; 84484; 85025; 85379; 85610; 85730; 87426; 93005; 93970; 96365; 96375 ×2; 96376; 99285; A9575; G0480; J1644; J1940 ×2; J2270; J7050

== ENCOUNTER 2021-06-16 08:17 | Inpatient (IN) | payer OTHER ==
[~2021-06-16] VITALS: Ht 157.5 cm; Wt 46.8 kg
[2021-06-16] MEDS ORDERED: ONDANSETRON HCL 4 MG/2 ML VIAL IVP ONE (08:45)
[2021-06-16] MEDS ORDERED: SODIUM CHLORIDE 0.9% 1,000 ML IV ONE ×2 (08:45→09:45)
[2021-06-16] MEDS ORDERED: MAG HYDROX/AL HYDROX/SIMETH 30 ML SUSP UDCUP PO ONE (08:45)
[2021-06-16] MEDS ORDERED: KETOROLAC TROMETHAMINE 30 MG/ML VIAL IVP ONE (08:45)
[2021-06-16] MEDS ORDERED: MORPHINE SULFATE 2 MG/ML SYRINGE IVP ONE ×3 (08:45→12:15)
[2021-06-16] MEDS ORDERED: FAMOTIDINE 10 MG/ML 2 ML VIAL IVP ONE (08:45)
[2021-06-16] MEDS ORDERED: IOHEXOL 350 MG/ML 100 ML VIAL ONE (08:54)
[2021-06-16] MEDS ORDERED: SODIUM CHLORIDE 0.9% 100 ML ONE (08:55)
[2021-06-16 09:07] LABS: BASOPHILS % (AUTO) 0.9 % (0.0-2.0); EOSINOPHILS % (AUTO) 0.2 % (1.0-6.0); HEMOGLOBIN 11.5 g/dL (12.0-16.0); LYMPHOCYTES # (AUTO) 0.9 K/uL (1.0-4.8); LYMPHOCYTES % (AUTO) 19.3 % (22.0-44.0); MEAN CORPUSCULAR HEMOGLOBIN 27.4 pg (26.0-34.0); MEAN CORPUSCULAR HGB CONC 31.8 G/dL (31.0-37.0); MEAN CORPUSCULAR VOLUME 86 fL (80-100); MONOCYTES # (AUTO) 0.1 K/uL (0.1-1.0); MONOCYTES % (AUTO) 2.1 % (2.0-9.0); NEUTROPHILS # (AUTO) 3.7 K/uL (1.8-7.7); NEUTROPHILS % (AUTO) 77.5 % (40.0-70.0); PLATELET COUNT (AUTO) 101 K/uL (150-450); RED BLOOD CELL COUNT(AUTO) 4.19 MIL/uL (4.00-5.20); RED CELL DISTRIBUTION WIDTH 17.5 % (11.5-14.5)
[2021-06-16 09:18] LABS: CALCIUM, TOTAL 7.9 mg/dL (8.8-10.5); CREATININE 1.08 mg/dL (0.60-1.30); POTASSIUM 4.3 mmol/L (3.5-5.1)
[2021-06-16 09:31] LABS: ALBUMIN 2.3 g/dL (3.4-5.0); TOTAL PROTEIN, SERUM 7.1 g/dL (6.4-8.2)
[2021-06-16 09:43] LABS: LACTIC ACID 5.2 mmol/L (0.4-2.0)
[2021-06-16] MEDS ORDERED: PIPERACILLIN SODIUM/TAZOBACTAM 4.5 GM in DEXTROSE 5%-WATER 100 ML IV ONE (10:15)
[2021-06-16 11:01] LABS: COVID AG,FIA SOURCE NASOPHARYNGEAL
[2021-06-16] MEDS ORDERED: PANTOPRAZOLE SODIUM 40 MG/VIAL IVP ONE (11:30)
[2021-06-16] MEDS ORDERED: BUPIVACAINE LIPOSOME/PF 1.3%-13.3MG/ML SUSPENSION 20 ML VIAL INJ ONE (12:15)
[2021-06-16] MEDS ORDERED: BUPIVACAINE 0.25%/EPI 1:200,000/PF 10 ML VIAL ONE (12:23)
[2021-06-16] MEDS ORDERED: 0.9% SODIUM CHLORIDE 10 ML SYRINGE IVP PRN (12:45)
[2021-06-16] MEDS ORDERED: ONDANSETRON HCL 4 MG/2 ML VIAL IVP PRN ×2 (12:45→18:30)
[2021-06-16] MEDS ORDERED: ACETAMINOPHEN 325 MG TABLET PO PRN ×2 (12:45→18:30)
[2021-06-16] MEDS ORDERED: RINGERS SOLUTION,LACTATED 1,000 ML IV ONE ×4 (12:48→13:51)
[2021-06-16] MEDS ORDERED: SODIUM CL IRRIG SOLN BAG 3,000 ML IRRIG ONE (14:14)
[2021-06-16] MEDS ORDERED: MEPERIDINE-PF 25 MG/ML VIAL IVP PRN (16:00)
[2021-06-16] MEDS ORDERED: FentaNYL CITRATE PF 100 MCG/2 ML VIAL IVP PRN (16:00)
[2021-06-16] MEDS ORDERED: HYDROmorphone 2 MG/ML VIAL IVP PRN (16:00)
[2021-06-16 17:49] VITALS: BP 127/61
[2021-06-16 17:53] VITALS: BP 127/61
[2021-06-16] MEDS ORDERED: ALBUTEROL SULFATE 2.5 MG/0.5 ML NEB SOLUTION NEB PRN (18:30)
[2021-06-16] MEDS ORDERED: ZOLPIDEM TARTRATE 5 MG TABLET PO PRN (18:30)
[2021-06-16] MEDS ORDERED: HYDROCODONE/ACETAMINOPHEN 5-325 MG TABLET PO PRN (18:30)
[2021-06-16] MEDS ORDERED: BISACODYL 10 MG RECTAL RECTAL SUPPOSITORY PR PRN (18:30)
[2021-06-16] MEDS ORDERED: MAGNESIUM HYDROXIDE SUSPENSION 30 ML UDCUP PO PRN (18:30)
[2021-06-16] MEDS ORDERED: IPRATROPIUM BROMIDE 0.5 MG/2.5 ML NEB SOLUTION NEB PRN (18:30)
[2021-06-16] MEDS ORDERED: SODIUM CHLORIDE 0.9% 250 ML IV ONE (18:41)
[2021-06-16] MEDS: PIPERACILLIN/TAZO 3.375 GM/D5W 50 ML IV SCH (18:54)
[2021-06-16 20:03] VITALS: BP 106/64
[2021-06-16] MEDS: DEXTROSE 5%-0.45% SODIUM CHL 1,000 ML IV SCH (20:15)
[2021-06-16] MEDS ORDERED: DOCUSATE SODIUM 100 MG CAPSULE PO SCH (21:00)
[2021-06-16] MEDS: PANTOPRAZOLE SODIUM 40 MG/VIAL IVP SCH (22:04)
[2021-06-16] MEDS: HEPARIN SODIUM,PORCINE 5,000 UNITS/ML VIAL SQ SCH (23:23)
[2021-06-16 23:41] VITALS: BP 102/62
[2021-06-17] MEDS: PIPERACILLIN/TAZO 3.375 GM/D5W 50 ML IV SCH ×4 (00:19→18:34)
[2021-06-17] MEDS: MORPHINE SULFATE 2 MG/ML SYRINGE IVP PRN ×3 (00:23→20:32)
[2021-06-17 03:16] VITALS: BP 117/59
[2021-06-17] MEDS: LORazepam 2 MG/ML VIAL IVP PRN ×2 (05:14→15:27)
[2021-06-17 06:34] LABS: BASOPHILS % (AUTO) 0.2 % (0.0-2.0); EOSINOPHILS % (AUTO) 0.2 % (1.0-6.0); HEMATOCRIT 31.5 % (36-46); HEMOGLOBIN 10.1 g/dL (12.0-16.0); LYMPHOCYTES # (AUTO) 1.1 K/uL (1.0-4.8); LYMPHOCYTES % (AUTO) 10.2 % (22.0-44.0); MEAN CORPUSCULAR HEMOGLOBIN 27.9 pg (26.0-34.0); MEAN CORPUSCULAR VOLUME 87 fL (80-100); MONOCYTES # (AUTO) 0.6 K/uL (0.1-1.0); MONOCYTES % (AUTO) 5.4 % (2.0-9.0); NEUTROPHILS # (AUTO) 9.3 K/uL (1.8-7.7); RED BLOOD CELL COUNT(AUTO) 3.62 MIL/uL (4.00-5.20); RED CELL DISTRIBUTION WIDTH 17.7 % (11.5-14.5)
[2021-06-17] MEDS ORDERED: PHENYLEPHRINE HCL 10 MG/ML VIAL IVP ONE (06:43)
[2021-06-17] MEDS ORDERED: ONDANSETRON HCL 4 MG/2 ML VIAL IVP ONE (06:43)
[2021-06-17] MEDS ORDERED: LIDOCAINE/PF 2% 5 ML VIAL IM ONE (06:43)
[2021-06-17] MEDS ORDERED: PROPOFOL 1% 20 ML VIAL IVP ONE (06:43)
[2021-06-17] MEDS ORDERED: MIDAZOLAM HCL 2 MG/2 ML VIAL IVP ONE (06:43)
[2021-06-17] MEDS ORDERED: 0.9% SODIUM CHLORIDE 10 ML VIAL IVP ONE (06:43)
[2021-06-17] MEDS ORDERED: ROCURONIUM BROMIDE 10 MG/ML 5 ML VIAL IVP ONE (06:43)
[2021-06-17] MEDS ORDERED: FentaNYL CITRATE PF 100 MCG/2 ML VIAL IVP ONE (06:43)
[2021-06-17] MEDS ORDERED: EPHEDrine SULFATE 50 MG/ML VIAL IM ONE (06:43)
[2021-06-17 06:52] LABS: ALBUMIN 1.4 g/dL (3.4-5.0); BILIRUBIN,TOTAL 2.4 mg/dL (0.1-1.0); CREATININE 1.4 mg/dL (0.60-1.30); POTASSIUM 4.6 mmol/L (3.5-5.1)
[2021-06-17 06:56] LABS: PLATELET COUNT (AUTO) 91 K/uL (150-450)
[2021-06-17 07:03] LABS: CALCIUM, TOTAL 7.1 mg/dL (8.8-10.5)
[2021-06-17 07:18] VITALS: BP 133/54
[2021-06-17] MEDS: HEPARIN SODIUM,PORCINE 5,000 UNITS/ML VIAL SQ SCH (08:00)
[2021-06-17] MEDS: PANTOPRAZOLE SODIUM 40 MG/VIAL IVP SCH ×2 (08:42→20:32)
[2021-06-17] MEDS: DEXTROSE 5%-0.45% SODIUM CHL 1,000 ML IV SCH ×2 (08:43→23:25)
[2021-06-17] MEDS ORDERED: PANTOPRAZOLE SODIUM 40 MG/VIAL IVP SCH (09:00)
[2021-06-17 10:32] LABS: INR 1.9 (0.9-1.1); PROTHROMBIN TIME 18.7 SEC (9.4-11.6)
[2021-06-17 11:15] VITALS: BP 137/66
[2021-06-17 15:12] VITALS: BP 144/90
[2021-06-17 20:10] VITALS: BP 154/109
[2021-06-18] VITALS: BP 133/101
[2021-06-18] MEDS: LORazepam 2 MG/ML VIAL IVP PRN (00:04)
[2021-06-18] MEDS: PIPERACILLIN/TAZO 3.375 GM/D5W 50 ML IV SCH ×3 (00:06→11:12)
[2021-06-18] MEDS: MORPHINE SULFATE 2 MG/ML SYRINGE IVP PRN ×3 (00:24→16:43)
[2021-06-18 05:30] VITALS: BP 141/86
[2021-06-18 06:59] LABS: APPEARANCE,URINE CLOUDY (CLEAR); GLUCOSE, URINE (UA) NEGATIVE (NEGATIVE); KETONES,URINE TRACE mg/dL (NEGATIVE); LEUKOCYTE ESTERASE ,URINE LARGE (NEGATIVE); NITRATE,URINE NEGATIVE (NEGATIVE); OCCULT BLOOD,URINE MODERATE (NEGATIVE); PROTEIN,URINE POS 1+ (NEGATIVE); UROBILINOGEN,URINE 0.2 mg/dL (<=1.0)
[2021-06-18 07:00] LABS: BILIRUBIN,URINE PRELIM. POSITIVE (NEGATIVE)
[2021-06-18 07:05] LABS: AMPHET/METH SCREEN,URINE NEGATIVE (NEGATIVE); BARBITURATE SCREEN, URINE NEGATIVE (NEGATIVE); BENZODIAZEPINES SCREEN,URINE POSITIVE (NEGATIVE); CANNABINOID SCREEN,URINE NEGATIVE (NEGATIVE); COCAINE SCREEN,URINE NEGATIVE (NEGATIVE); METHADONE SCREEN, URINE NEGATIVE (NEGATIVE); OPIATE SCREEN,URINE POSITIVE (NEGATIVE)
[2021-06-18 07:06] LABS: PHENCYCLIDINE SCREEN,URINE NEGATIVE (NEGATIVE)
[2021-06-18 07:09] LABS: BACTERIA,URINE Many /HPF (None Seen); WBC,URINE 51-100 /HPF (0-5)
[2021-06-18 07:10] LABS: SQUAMOUS EPITHELIAL CELL,UR Moderate /LPF (None Seen)
[2021-06-18 07:20] VITALS: BP 137/69
[2021-06-18] MEDS: PANTOPRAZOLE SODIUM 40 MG/VIAL IVP SCH ×2 (07:56→20:10)
[2021-06-18 08:04] LABS: BASOPHILS % (AUTO) 0.2 % (0.0-2.0); EOSINOPHILS % (AUTO) 0.8 % (1.0-6.0); HEMATOCRIT 33.2 % (36-46); HEMOGLOBIN 10.7 g/dL (12.0-16.0); LYMPHOCYTES % (AUTO) 8.1 % (22.0-44.0); MEAN CORPUSCULAR HEMOGLOBIN 27.5 pg (26.0-34.0); MEAN CORPUSCULAR HGB CONC 32.3 G/dL (31.0-37.0); MEAN CORPUSCULAR VOLUME 85 fL (80-100); MONOCYTES # (AUTO) 0.6 K/uL (0.1-1.0); MONOCYTES % (AUTO) 4.8 % (2.0-9.0); NEUTROPHILS # (AUTO) 10.6 K/uL (1.8-7.7); PLATELET COUNT (AUTO) 92 K/uL (150-450); RED CELL DISTRIBUTION WIDTH 17.8 % (11.5-14.5)
[2021-06-18 08:09] LABS: NEUTROPHILS % (AUTO) 86.1 % (40.0-70.0)
[2021-06-18 08:34] LABS: ALBUMIN 1.4 g/dL (3.4-5.0); BILIRUBIN,TOTAL 3.2 mg/dL (0.1-1.0); CALCIUM, TOTAL 6.9 mg/dL (8.8-10.5); CREATININE 1.62 mg/dL (0.60-1.30); POTASSIUM 4.3 mmol/L (3.5-5.1); TOTAL PROTEIN, SERUM 5.4 g/dL (6.4-8.2)
[2021-06-18] MEDS ORDERED: ALBUMIN HUMAN 25%-12.5GM/50ML 50 ML IV ONE (10:15)
[2021-06-18] MEDS: DEXTROSE 5%-0.45% SODIUM CHL 1,000 ML IV SCH (11:12)
[2021-06-18 11:40] VITALS: BP 148/87
[2021-06-18 13:49] LABS: MAGNESIUM 1.3 mg/dL (1.80-2.40)
[2021-06-18] MEDS ORDERED: MAGNESIUM OXIDE 400 MG TABLET PO PRN (15:00)
[2021-06-18] MEDS ORDERED: MAGNESIUM SULFATE 4 GM/WATER 100 ML IV PRN (15:00)
[2021-06-18] MEDS: MAGNESIUM SULFATE 2 GM/WATER 50 ML IV PRN (15:27)
[2021-06-18 15:37] VITALS: BP 143/71
[2021-06-18 16:46] LABS: ALBUMIN 2.1 g/dL (3.4-5.0)
[2021-06-18] MEDS: PIPERACILLIN SODIUM/TAZOBACTAM 2.25 GM in DEXTROSE 5%-WATER 50 ML IV SCH ×2 (17:32→23:43)
[2021-06-18 19:19] VITALS: BP 146/72
[2021-06-19] VITALS (7 sets, daily range): BP systolic 131–165; BP diastolic 61–95
[2021-06-19] MEDS: MORPHINE SULFATE 2 MG/ML SYRINGE IVP PRN ×4 (00:20→23:09)
[2021-06-19] MEDS: DEXTROSE 5%-0.45% SODIUM CHL 1,000 ML IV SCH (04:33)
[2021-06-19] MEDS: PIPERACILLIN SODIUM/TAZOBACTAM 2.25 GM in DEXTROSE 5%-WATER 50 ML IV SCH ×4 (05:35→23:46)
[2021-06-19 07:16] LABS: BASOPHILS % (AUTO) 0.2 % (0.0-2.0); EOSINOPHILS % (AUTO) 1.1 % (1.0-6.0); HEMATOCRIT 31.2 % (36-46); HEMOGLOBIN 10.1 g/dL (12.0-16.0); LYMPHOCYTES # (AUTO) 1.1 K/uL (1.0-4.8); LYMPHOCYTES % (AUTO) 10.2 % (22.0-44.0); MEAN CORPUSCULAR HEMOGLOBIN 27.5 pg (26.0-34.0); MEAN CORPUSCULAR HGB CONC 32.2 G/dL (31.0-37.0); MEAN CORPUSCULAR VOLUME 86 fL (80-100); MONOCYTES # (AUTO) 0.7 K/uL (0.1-1.0); MONOCYTES % (AUTO) 6.4 % (2.0-9.0); NEUTROPHILS % (AUTO) 82.1 % (40.0-70.0); RED BLOOD CELL COUNT(AUTO) 3.65 MIL/uL (4.00-5.20); RED CELL DISTRIBUTION WIDTH 17.7 % (11.5-14.5)
[2021-06-19] MEDS: PANTOPRAZOLE SODIUM 40 MG/VIAL IVP SCH ×2 (07:19→20:05)
[2021-06-19 07:58] LABS: ALBUMIN 1.6 g/dL (3.4-5.0); CALCIUM, TOTAL 7.1 mg/dL (8.8-10.5); CREATININE 1.71 mg/dL (0.60-1.30); POTASSIUM 3.7 mmol/L (3.5-5.1); TOTAL PROTEIN, SERUM 5.2 g/dL (6.4-8.2)
[2021-06-19 08:17] LABS: PLATELET COUNT (AUTO) 77 K/uL (150-450)
[2021-06-19 08:25] LABS: MAGNESIUM 1.7 mg/dL (1.80-2.40)
[2021-06-19] MEDS ORDERED: *CLINICAL-PERIPHERAL PARENTERAL NUTRITION DOSING CLINICAL ONE (08:30)
[2021-06-19] MEDS ORDERED: DIATRIZOATE MEGLU/SOD 660/100 MG/ML 120 ML BOTTLE ONE (08:31)
[2021-06-19] MEDS: LORazepam 2 MG/ML VIAL IVP PRN ×2 (08:56→20:06)
[2021-06-19] MEDS ORDERED: DEXTROSE 5%-0.45% SODIUM CHL 1,000 ML IV SCH (10:30)
[2021-06-19] MEDS ORDERED: MAGNESIUM SULFATE 1 GM in DEXTROSE 5%-WATER 50 ML IV ONE (12:15)
[2021-06-19] MEDS ORDERED: PPN SOLUTION 1 EA, SODIUM CHLORIDE 70 MEQ, SODIUM PHOS,M-BASIC-D-BASIC 30 MEQ, POTASSIU... IV SCH ×9 (22:00)
[2021-06-20] MEDS: MORPHINE SULFATE 2 MG/ML SYRINGE IVP PRN ×3 (03:17→16:46)
[2021-06-20] MEDS: PIPERACILLIN SODIUM/TAZOBACTAM 2.25 GM in DEXTROSE 5%-WATER 50 ML IV SCH ×2 (06:03→11:17)
[2021-06-20 06:12] VITALS: BP 142/70
[2021-06-20 07:07] LABS: BASOPHILS % (AUTO) 0.1 % (0.0-2.0); EOSINOPHILS % (AUTO) 1.1 % (1.0-6.0); HEMATOCRIT 30.6 % (36-46); LYMPHOCYTES # (AUTO) 0.8 K/uL (1.0-4.8); LYMPHOCYTES % (AUTO) 7.4 % (22.0-44.0); MEAN CORPUSCULAR HEMOGLOBIN 27.6 pg (26.0-34.0); MEAN CORPUSCULAR HGB CONC 32.6 G/dL (31.0-37.0); MEAN CORPUSCULAR VOLUME 85 fL (80-100); MONOCYTES # (AUTO) 0.9 K/uL (0.1-1.0); MONOCYTES % (AUTO) 8.5 % (2.0-9.0); NEUTROPHILS # (AUTO) 8.6 K/uL (1.8-7.7); NEUTROPHILS % (AUTO) 82.9 % (40.0-70.0); PLATELET COUNT (AUTO) 81 K/uL (150-450); RED BLOOD CELL COUNT(AUTO) 3.61 MIL/uL (4.00-5.20); RED CELL DISTRIBUTION WIDTH 17.5 % (11.5-14.5)
[2021-06-20] MEDS: PANTOPRAZOLE SODIUM 40 MG/VIAL IVP SCH ×2 (07:30→20:37)
[2021-06-20 09:16] VITALS: BP 128/90
[2021-06-20 10:03] LABS: ALBUMIN 1.3 g/dL (3.4-5.0); BILIRUBIN,TOTAL 3.5 mg/dL (0.1-1.0); CALCIUM, TOTAL 7.3 mg/dL (8.8-10.5); CREATININE 1.16 mg/dL (0.60-1.30); MAGNESIUM 1.3 mg/dL (1.80-2.40); PHOSPHORUS 3.7 mg/dL (2.5-4.9); POTASSIUM 3.9 mmol/L (3.5-5.1); TOTAL PROTEIN, SERUM 4.6 g/dL (6.4-8.2)
[2021-06-20] MEDS ORDERED: SODIUM CHLORIDE 0.9% 250 ML IV ONE (11:21)
[2021-06-20 12:19] VITALS: BP 137/88
[2021-06-20] MEDS: LORazepam 2 MG/ML VIAL IVP PRN (12:31)
[2021-06-20] MEDS: MAGNESIUM SULFATE 2 GM/WATER 50 ML IV PRN (12:43)
[2021-06-20 15:51] VITALS: BP 138/57
[2021-06-20] MEDS: PIPERACILLIN/TAZO 3.375 GM/D5W 50 ML IV SCH (17:04)
[2021-06-20 20:16] VITALS: BP 117/59
[2021-06-20] MEDS ORDERED: PPN SOLUTION 1 EA, SODIUM CHLORIDE 70 MEQ, SODIUM PHOS,M-BASIC-D-BASIC 30 MEQ, POTASSIU... IV SCH ×9 (22:00)
[2021-06-20 23:53] VITALS: BP 153/61
[2021-06-21] MEDS: PIPERACILLIN/TAZO 3.375 GM/D5W 50 ML IV SCH ×4 (00:08→23:20)
[2021-06-21] MEDS: LORazepam 2 MG/ML VIAL IVP PRN ×2 (02:34→21:13)
[2021-06-21 05:01] VITALS: BP 149/77
[2021-06-21 07:11] LABS: BASOPHILS % (AUTO) 0.2 % (0.0-2.0); EOSINOPHILS % (AUTO) 2.9 % (1.0-6.0); HEMATOCRIT 31.8 % (36-46); HEMOGLOBIN 10.2 g/dL (12.0-16.0); LYMPHOCYTES # (AUTO) 0.8 K/uL (1.0-4.8); LYMPHOCYTES % (AUTO) 8.8 % (22.0-44.0); MEAN CORPUSCULAR HEMOGLOBIN 27.4 pg (26.0-34.0); MEAN CORPUSCULAR VOLUME 86 fL (80-100); MONOCYTES # (AUTO) 0.6 K/uL (0.1-1.0); MONOCYTES % (AUTO) 6.4 % (2.0-9.0); NEUTROPHILS # (AUTO) 7.8 K/uL (1.8-7.7); NEUTROPHILS % (AUTO) 81.7 % (40.0-70.0); PLATELET COUNT (AUTO) 77 K/uL (150-450); RED BLOOD CELL COUNT(AUTO) 3.71 MIL/uL (4.00-5.20); RED CELL DISTRIBUTION WIDTH 17.6 % (11.5-14.5)
[2021-06-21 07:29] LABS: ALBUMIN 1.2 g/dL (3.4-5.0); BILIRUBIN,TOTAL 2.9 mg/dL (0.1-1.0); CALCIUM, TOTAL 6.8 mg/dL (8.8-10.5); CREATININE 1.03 mg/dL (0.60-1.30); MAGNESIUM 1.8 mg/dL (1.80-2.40); PHOSPHORUS 2.5 mg/dL (2.5-4.9); POTASSIUM 3.9 mmol/L (3.5-5.1); TOTAL PROTEIN, SERUM 4.6 g/dL (6.4-8.2)
[2021-06-21] MEDS: PANTOPRAZOLE SODIUM 40 MG/VIAL IVP SCH ×2 (07:55→20:06)
[2021-06-21 08:33] VITALS: BP 155/79
[2021-06-21 11:57] VITALS: BP 135/65
[2021-06-21 12:32] LABS: INR 1.4 (0.9-1.1); PROTHROMBIN TIME 14.3 SEC (9.4-11.6)
[2021-06-21 16:32] VITALS: BP 133/108
[2021-06-21 20:00] VITALS: BP 145/69
[2021-06-21] MEDS ORDERED: SODIUM CHLORIDE IV SCH ×10 (22:00)
[2021-06-21] MEDS ORDERED: SODIUM PHOS M BASIC D BASIC IV SCH ×10 (22:00)
[2021-06-21] MEDS ORDERED: [UNRECOGNIZED DRUG - OTHER] IV SCH ×10 (22:00)
[2021-06-21] MEDS ORDERED: PPN IV SCH ×10 (22:00)
[2021-06-21] MEDS: MORPHINE SULFATE 2 MG/ML SYRINGE IVP PRN (23:21)
[2021-06-22] VITALS (7 sets, daily range): BP systolic 118–150; BP diastolic 66–92
[2021-06-22] MEDS: MORPHINE SULFATE 2 MG/ML SYRINGE IVP PRN ×3 (04:57→23:48)
[2021-06-22] MEDS: PIPERACILLIN/TAZO 3.375 GM/D5W 50 ML IV SCH ×4 (04:58→23:25)
[2021-06-22 07:00] LABS: BASOPHILS % (AUTO) 0.1 % (0.0-2.0); EOSINOPHILS % (AUTO) 1.7 % (1.0-6.0); HEMATOCRIT 30.7 % (36-46); HEMOGLOBIN 9.8 g/dL (12.0-16.0); LYMPHOCYTES # (AUTO) 1.1 K/uL (1.0-4.8); LYMPHOCYTES % (AUTO) 9.8 % (22.0-44.0); MEAN CORPUSCULAR HEMOGLOBIN 26.9 pg (26.0-34.0); MEAN CORPUSCULAR HGB CONC 31.7 G/dL (31.0-37.0); MEAN CORPUSCULAR VOLUME 85 fL (80-100); MONOCYTES % (AUTO) 9.1 % (2.0-9.0); NEUTROPHILS # (AUTO) 8.7 K/uL (1.8-7.7); NEUTROPHILS % (AUTO) 79.3 % (40.0-70.0); PLATELET COUNT (AUTO) 84 K/uL (150-450); RED BLOOD CELL COUNT(AUTO) 3.62 MIL/uL (4.00-5.20); RED CELL DISTRIBUTION WIDTH 17.6 % (11.5-14.5)
[2021-06-22 07:23] LABS: ALANINE AMINOTRANSFERASE 20 U/L (12-78); ALBUMIN 1.3 g/dL (3.4-5.0); ALKALINE PHOSPHATASE 52 U/L (46-116); ANION GAP 6 mmol/L (8-16); ASPARTATE AMINOTRANSFERASE 27 U/L (15-37); BILIRUBIN,TOTAL 2.1 mg/dL (0.1-1.0); CALCIUM, TOTAL 7.8 mg/dL (8.8-10.5); CARBON DIOXIDE 27 mmol/L (22-29); CHLORIDE 109 mmol/L (98-107); CREATININE 0.95 mg/dL (0.60-1.30); GLOMERULAR FILTR. RATE CALC > 60 mL/min (>60); GLUCOSE,RANDOM 195 mg/dL (70-110); PHOSPHORUS 2.9 mg/dL (2.5-4.9); POTASSIUM 4.2 mmol/L (3.5-5.1); SODIUM SERUM 142 mmol/L (136-145); TOTAL PROTEIN, SERUM 5.1 g/dL (6.4-8.2); UREA NITROGEN, BLOOD 37 mg/dL (7-18)
[2021-06-22] MEDS: PANTOPRAZOLE SODIUM 40 MG/VIAL IVP SCH ×2 (07:47→19:40)
[2021-06-22] MEDS: LORazepam 2 MG/ML VIAL IVP PRN (16:20)
[2021-06-22] MEDS ORDERED: SODIUM CHLORIDE 0.9% 250 ML IV ONE (23:23)
[2021-06-23 03:36] VITALS: BP 136/69
[2021-06-23] MEDS: MORPHINE SULFATE 2 MG/ML SYRINGE IVP PRN ×4 (04:10→22:44)
[2021-06-23] MEDS: PIPERACILLIN/TAZO 3.375 GM/D5W 50 ML IV SCH ×4 (05:05→23:59)
[2021-06-23 06:58] LABS: BASOPHILS % (AUTO) 0.5 % (0.0-2.0); EOSINOPHILS % (AUTO) 2.7 % (1.0-6.0); HEMATOCRIT 29.9 % (36-46); HEMOGLOBIN 9.6 g/dL (12.0-16.0); LYMPHOCYTES # (AUTO) 1.1 K/uL (1.0-4.8); LYMPHOCYTES % (AUTO) 10.1 % (22.0-44.0); MEAN CORPUSCULAR HEMOGLOBIN 27.1 pg (26.0-34.0); MEAN CORPUSCULAR HGB CONC 32.1 G/dL (31.0-37.0); MEAN CORPUSCULAR VOLUME 85 fL (80-100); MONOCYTES # (AUTO) 0.8 K/uL (0.1-1.0); MONOCYTES % (AUTO) 7.7 % (2.0-9.0); NEUTROPHILS # (AUTO) 8.7 K/uL (1.8-7.7); PLATELET COUNT (AUTO) 86 K/uL (150-450); RED BLOOD CELL COUNT(AUTO) 3.54 MIL/uL (4.00-5.20); RED CELL DISTRIBUTION WIDTH 17.4 % (11.5-14.5)
[2021-06-23 07:10] LABS: ALBUMIN 1.3 g/dL (3.4-5.0); BILIRUBIN,TOTAL 1.9 mg/dL (0.1-1.0); CALCIUM, TOTAL 7.3 mg/dL (8.8-10.5); CREATININE 1.09 mg/dL (0.60-1.30); MAGNESIUM 2.1 mg/dL (1.80-2.40); PHOSPHORUS 2.6 mg/dL (2.5-4.9); POTASSIUM 4.5 mmol/L (3.5-5.1); TOTAL PROTEIN, SERUM 5.3 g/dL (6.4-8.2)
[2021-06-23 07:42] VITALS: BP 162/60
[2021-06-23] MEDS: PANTOPRAZOLE SODIUM 40 MG/VIAL IVP SCH ×2 (08:23→20:31)
[2021-06-23 11:30] VITALS: BP 131/63
[2021-06-23] MEDS: LORazepam 2 MG/ML VIAL IVP PRN (13:55)
[2021-06-23 15:03] VITALS: BP 135/90
[2021-06-23] MEDS ORDERED: SODIUM CHLORIDE 0.9% 250 ML IV ONE (17:02)
[2021-06-23 20:23] VITALS: BP 155/73
[2021-06-23 23:25] VITALS: BP 135/70
[2021-06-24] MEDS: LORazepam 2 MG/ML VIAL IVP PRN ×3 (00:59→23:35)
[2021-06-24] MEDS: PIPERACILLIN/TAZO 3.375 GM/D5W 50 ML IV SCH ×4 (04:59→23:35)
[2021-06-24 05:00] VITALS: BP 160/81
[2021-06-24] MEDS: MORPHINE SULFATE 2 MG/ML SYRINGE IVP PRN ×3 (05:00→20:30)
[2021-06-24 07:18] VITALS: BP 155/68
[2021-06-24] MEDS: PANTOPRAZOLE SODIUM 40 MG/VIAL IVP SCH ×2 (09:14→20:30)
[2021-06-24 13:15] VITALS: BP 144/74
[2021-06-24 18:02] VITALS: BP 112/68
[2021-06-24 19:44] VITALS: BP 133/66
[2021-06-25 00:11] VITALS: BP 159/87
[2021-06-25 04:07] VITALS: BP 158/55
[2021-06-25] MEDS: PIPERACILLIN/TAZO 3.375 GM/D5W 50 ML IV SCH (05:08)
[2021-06-25] MEDS: LORazepam 2 MG/ML VIAL IVP PRN ×2 (07:44→17:40)
[2021-06-25] MEDS: PANTOPRAZOLE SODIUM 40 MG/VIAL IVP SCH ×2 (07:44→19:20)
[2021-06-25 08:41] VITALS: BP 123/95
[2021-06-25] MEDS: MORPHINE SULFATE 2 MG/ML SYRINGE IVP PRN ×3 (10:02→21:23)
[2021-06-25 13:00] VITALS: BP 112/64
[2021-06-25] MEDS ORDERED: MORPHINE SULFATE 2 MG/ML SYRINGE IVP PRN (16:00)
[2021-06-25] MEDS ORDERED: LORazepam 2 MG/ML VIAL IVP PRN ×2 (16:45)
[2021-06-25 18:19] VITALS: BP 161/89
[2021-06-25 19:11] VITALS: BP 146/78
[2021-06-26 01:14] VITALS: BP 146/91
[2021-06-26] MEDS: LORazepam 2 MG/ML VIAL IVP PRN ×4 (01:40→23:42)
[2021-06-26] MEDS: MORPHINE SULFATE 2 MG/ML SYRINGE IVP PRN ×3 (06:27→21:21)
[2021-06-26 07:31] LABS: BASOPHILS % (AUTO) 0.4 % (0.0-2.0); EOSINOPHILS % (AUTO) 1.4 % (1.0-6.0); HEMATOCRIT 31.9 % (36-46); HEMOGLOBIN 9.9 g/dL (12.0-16.0); LYMPHOCYTES # (AUTO) 1.7 K/uL (1.0-4.8); MEAN CORPUSCULAR HGB CONC 30.9 G/dL (31.0-37.0); MEAN CORPUSCULAR VOLUME 87 fL (80-100); MONOCYTES # (AUTO) 0.8 K/uL (0.1-1.0); MONOCYTES % (AUTO) 5.6 % (2.0-9.0); NEUTROPHILS # (AUTO) 11.4 K/uL (1.8-7.7); NEUTROPHILS % (AUTO) 80.6 % (40.0-70.0); PLATELET COUNT (AUTO) 143 K/uL (150-450); RED BLOOD CELL COUNT(AUTO) 3.65 MIL/uL (4.00-5.20); RED CELL DISTRIBUTION WIDTH 18.4 % (11.5-14.5)
[2021-06-26 07:49] LABS: ALBUMIN 1.8 g/dL (3.4-5.0); BILIRUBIN,TOTAL 2.1 mg/dL (0.1-1.0); CREATININE 1.3 mg/dL (0.60-1.30); TOTAL PROTEIN, SERUM 6.9 g/dL (6.4-8.2)
[2021-06-26 08:05] LABS: CALCIUM, TOTAL 8.3 mg/dL (8.8-10.5)
[2021-06-26 08:26] VITALS: BP 152/85
[2021-06-26 08:30] LABS: POTASSIUM 6.4 mmol/L (3.5-5.1)
[2021-06-26] MEDS ORDERED: DEXTROSE 50%-WATER 25 GM/50 ML SYRINGE IVP ONE (09:00)
[2021-06-26] MEDS ORDERED: INSULIN REGULAR, HUMAN 100 UNITS/ML IVP ONE (09:00)
[2021-06-26] MEDS ORDERED: SODIUM POLYSTYRENE SULFONATE 15 GM/60 ML SUSPENSION BOTTLE PO ONE (09:00)
[2021-06-26] MEDS: PANTOPRAZOLE SODIUM 40 MG/VIAL IVP SCH ×2 (10:06→20:53)
[2021-06-26 15:53] VITALS: BP 131/78
[2021-06-26 19:49] VITALS: BP 128/77
[2021-06-27 00:52] VITALS: BP 132/78
[2021-06-27] MEDS: MORPHINE SULFATE 2 MG/ML SYRINGE IVP PRN ×2 (02:25→11:51)
[2021-06-27] MEDS: LORazepam 2 MG/ML VIAL IVP PRN ×4 (03:40→21:10)
[2021-06-27 06:35] LABS: BASOPHILS % (AUTO) 0.6 % (0.0-2.0); EOSINOPHILS % (AUTO) 1.2 % (1.0-6.0); HEMATOCRIT 28.2 % (36-46); LYMPHOCYTES # (AUTO) 1.4 K/uL (1.0-4.8); LYMPHOCYTES % (AUTO) 12.5 % (22.0-44.0); MEAN CORPUSCULAR HEMOGLOBIN 27.3 pg (26.0-34.0); MEAN CORPUSCULAR HGB CONC 31.7 G/dL (31.0-37.0); MEAN CORPUSCULAR VOLUME 86 fL (80-100); MONOCYTES # (AUTO) 0.5 K/uL (0.1-1.0); MONOCYTES % (AUTO) 4.6 % (2.0-9.0); NEUTROPHILS # (AUTO) 9.4 K/uL (1.8-7.7); NEUTROPHILS % (AUTO) 81.1 % (40.0-70.0); PLATELET COUNT (AUTO) 124 K/uL (150-450); RED BLOOD CELL COUNT(AUTO) 3.28 MIL/uL (4.00-5.20); RED CELL DISTRIBUTION WIDTH 18.4 % (11.5-14.5)
[2021-06-27 06:46] LABS: CALCIUM, TOTAL 7.5 mg/dL (8.8-10.5); CREATININE 1.37 mg/dL (0.60-1.30)
[2021-06-27 06:48] LABS: POTASSIUM 4.6 mmol/L (3.5-5.1)
[2021-06-27] MEDS: PANTOPRAZOLE SODIUM 40 MG/VIAL IVP SCH ×2 (08:01→20:58)
[2021-06-27 08:19] VITALS: BP 165/69
[2021-06-27 12:44] VITALS: BP 117/78
[2021-06-27] MEDS ORDERED: DEXTROSE 5%-WATER 1,000 ML IV ONE (13:30)
[2021-06-27 16:25] VITALS: BP 155/72
[2021-06-27 20:40] VITALS: BP 153/69
[2021-06-27] MEDS: DIVALPROEX SODIUM 125 MG DR CAPSULE NG SCH (21:00)
[2021-06-28] VITALS (7 sets, daily range): BP systolic 103–148; BP diastolic 50–100
[2021-06-28] MEDS: LORazepam 2 MG/ML VIAL IVP PRN ×4 (01:22→22:36)
[2021-06-28] MEDS: DIVALPROEX SODIUM 125 MG DR CAPSULE NG SCH ×2 (07:45→20:33)
[2021-06-28] MEDS: PANTOPRAZOLE SODIUM 40 MG/VIAL IVP SCH ×2 (07:45→20:32)
[2021-06-28] MEDS: MORPHINE SULFATE 2 MG/ML SYRINGE IVP PRN ×2 (10:41→17:48)
[2021-06-28 12:41] LABS: BASOPHILS % (AUTO) 0.4 % (0.0-2.0); EOSINOPHILS % (AUTO) 2.3 % (1.0-6.0); HEMATOCRIT 26.4 % (36-46); HEMOGLOBIN 8.4 g/dL (12.0-16.0); LYMPHOCYTES # (AUTO) 1.6 K/uL (1.0-4.8); LYMPHOCYTES % (AUTO) 17.3 % (22.0-44.0); MEAN CORPUSCULAR HEMOGLOBIN 27.5 pg (26.0-34.0); MEAN CORPUSCULAR HGB CONC 31.7 G/dL (31.0-37.0); MEAN CORPUSCULAR VOLUME 87 fL (80-100); MONOCYTES # (AUTO) 0.6 K/uL (0.1-1.0); MONOCYTES % (AUTO) 6.7 % (2.0-9.0); NEUTROPHILS % (AUTO) 73.3 % (40.0-70.0); PLATELET COUNT (AUTO) 139 K/uL (150-450); RED BLOOD CELL COUNT(AUTO) 3.04 MIL/uL (4.00-5.20); RED CELL DISTRIBUTION WIDTH 18.3 % (11.5-14.5)
[2021-06-28 12:52] LABS: CALCIUM, TOTAL 7.1 mg/dL (8.8-10.5); CREATININE 1.36 mg/dL (0.60-1.30); POTASSIUM 4.8 mmol/L (3.5-5.1)
[2021-06-28 12:59] LABS: ALBUMIN 1.4 g/dL (3.4-5.0); BILIRUBIN,TOTAL 1.1 mg/dL (0.1-1.0); TOTAL PROTEIN, SERUM 5.9 g/dL (6.4-8.2)
[2021-06-29] MEDS: MORPHINE SULFATE 2 MG/ML SYRINGE IVP PRN ×3 (05:58→21:01)
[2021-06-29] MEDS: PANTOPRAZOLE SODIUM 40 MG/VIAL IVP SCH ×2 (07:30→20:48)
[2021-06-29] MEDS: LORazepam 2 MG/ML VIAL IVP PRN (07:30)
[2021-06-29] MEDS: DIVALPROEX SODIUM 125 MG DR CAPSULE NG SCH ×2 (07:31→20:48)
[2021-06-29 08:21] VITALS: BP 130/85
[2021-06-29 09:35] LABS: BASOPHILS % (AUTO) 0.6 % (0.0-2.0); EOSINOPHILS % (AUTO) 2.3 % (1.0-6.0); HEMATOCRIT 30.1 % (36-46); HEMOGLOBIN 9.4 g/dL (12.0-16.0); LYMPHOCYTES # (AUTO) 1.7 K/uL (1.0-4.8); LYMPHOCYTES % (AUTO) 14.2 % (22.0-44.0); MEAN CORPUSCULAR HGB CONC 31.2 G/dL (31.0-37.0); MEAN CORPUSCULAR VOLUME 87 fL (80-100); MONOCYTES # (AUTO) 0.6 K/uL (0.1-1.0); MONOCYTES % (AUTO) 4.8 % (2.0-9.0); NEUTROPHILS # (AUTO) 9.2 K/uL (1.8-7.7); NEUTROPHILS % (AUTO) 78.1 % (40.0-70.0); PLATELET COUNT (AUTO) 185 K/uL (150-450); RED BLOOD CELL COUNT(AUTO) 3.48 MIL/uL (4.00-5.20); RED CELL DISTRIBUTION WIDTH 18.8 % (11.5-14.5)
[2021-06-29 09:46] LABS: CALCIUM, TOTAL 7.7 mg/dL (8.8-10.5); CREATININE 1.35 mg/dL (0.60-1.30); POTASSIUM 5.7 mmol/L (3.5-5.1)
[2021-06-29 09:52] LABS: ALBUMIN 1.7 g/dL (3.4-5.0); BILIRUBIN,TOTAL 1.3 mg/dL (0.1-1.0)
[2021-06-29 11:20] VITALS: BP 123/57
[2021-06-29] MEDS ORDERED: DEXTROSE 5%-WATER 1,000 ML IV ONE (12:00)
[2021-06-29] MEDS ORDERED: CASPOFUNGIN ACETATE 70 MG in SODIUM CHLORIDE 0.9% 250 ML IV ONE (13:00)
[2021-06-29] MEDS ORDERED: SODIUM CHLORIDE 0.9% 250 ML IV ONE (13:29)
[2021-06-29] MEDS ORDERED: SODIUM POLYSTYRENE SULFONATE 15 GM/60 ML SUSPENSION BOTTLE PO ONE (14:00)
[2021-06-29 16:00] VITALS: BP 146/75
[2021-06-29 20:04] VITALS: BP 117/57
[2021-06-29 21:56] LABS: GLUCOMETER DEV NAME(LOC) 5S.2B; GLUCOSE,POINT OF CARE 177 MG/DL (70-110)
[2021-06-30 00:13] VITALS: BP 139/63
[2021-06-30] MEDS: LORazepam 2 MG/ML VIAL IVP PRN ×4 (02:34→20:59)
[2021-06-30] MEDS: MORPHINE SULFATE 2 MG/ML SYRINGE IVP PRN ×3 (03:27→18:36)
[2021-06-30 06:29] VITALS: BP 141/71
[2021-06-30 07:04] LABS: GLUCOMETER DEV NAME(LOC) 5S.1; GLUCOSE,POINT OF CARE 191 MG/DL (70-110)
[2021-06-30 07:09] LABS: BASOPHILS % (AUTO) 0.4 % (0.0-2.0); EOSINOPHILS % (AUTO) 1.9 % (1.0-6.0); HEMATOCRIT 29.9 % (36-46); HEMOGLOBIN 9.4 g/dL (12.0-16.0); LYMPHOCYTES # (AUTO) 1.4 K/uL (1.0-4.8); LYMPHOCYTES % (AUTO) 11.3 % (22.0-44.0); MEAN CORPUSCULAR HEMOGLOBIN 27.3 pg (26.0-34.0); MEAN CORPUSCULAR HGB CONC 31.6 G/dL (31.0-37.0); MEAN CORPUSCULAR VOLUME 86 fL (80-100); MONOCYTES # (AUTO) 0.6 K/uL (0.1-1.0); MONOCYTES % (AUTO) 4.8 % (2.0-9.0); NEUTROPHILS % (AUTO) 81.6 % (40.0-70.0); PLATELET COUNT (AUTO) 177 K/uL (150-450); RED BLOOD CELL COUNT(AUTO) 3.46 MIL/uL (4.00-5.20); RED CELL DISTRIBUTION WIDTH 18.7 % (11.5-14.5)
[2021-06-30 07:21] LABS: ALBUMIN 1.5 g/dL (3.4-5.0); BILIRUBIN,TOTAL 1.2 mg/dL (0.1-1.0); CALCIUM, TOTAL 7.3 mg/dL (8.8-10.5); CREATININE 1.19 mg/dL (0.60-1.30); POTASSIUM 4.6 mmol/L (3.5-5.1); TOTAL PROTEIN, SERUM 6.7 g/dL (6.4-8.2)
[2021-06-30] MEDS: PANTOPRAZOLE SODIUM 40 MG/VIAL IVP SCH ×2 (07:22→20:58)
[2021-06-30] MEDS: DIVALPROEX SODIUM 125 MG DR CAPSULE NG SCH (08:25)
[2021-06-30 08:30] VITALS: BP 140/69
[2021-06-30 12:18] VITALS: BP 148/73
[2021-06-30] MEDS: CASPOFUNGIN ACETATE 50 MG in SODIUM CHLORIDE 0.9% 250 ML IV SCH (13:19)
[2021-06-30 16:00] VITALS: BP 146/71
[2021-06-30 20:00] VITALS: BP 140/52
[2021-06-30] MEDS: QUEtiapine FUMARATE 100 MG TABLET NG PRN (20:59)
[2021-06-30] MEDS: VALPROIC ACID 250 MG/5 ML SOLUTION UDCUP PO SCH (20:59)
[2021-07-01] VITALS: BP 115/56
[2021-07-01 04:06] VITALS: BP 133/54
[2021-07-01 06:50] LABS: BASOPHILS % (AUTO) 0.3 % (0.0-2.0); EOSINOPHILS % (AUTO) 3.8 % (1.0-6.0); HEMATOCRIT 28.9 % (36-46); HEMOGLOBIN 9.2 g/dL (12.0-16.0); LYMPHOCYTES # (AUTO) 1.8 K/uL (1.0-4.8); LYMPHOCYTES % (AUTO) 20.6 % (22.0-44.0); MEAN CORPUSCULAR HEMOGLOBIN 27.7 pg (26.0-34.0); MEAN CORPUSCULAR HGB CONC 31.9 G/dL (31.0-37.0); MEAN CORPUSCULAR VOLUME 87 fL (80-100); MONOCYTES # (AUTO) 0.6 K/uL (0.1-1.0); MONOCYTES % (AUTO) 6.7 % (2.0-9.0); NEUTROPHILS # (AUTO) 5.9 K/uL (1.8-7.7); NEUTROPHILS % (AUTO) 68.6 % (40.0-70.0); PLATELET COUNT (AUTO) 173 K/uL (150-450); RED BLOOD CELL COUNT(AUTO) 3.33 MIL/uL (4.00-5.20); RED CELL DISTRIBUTION WIDTH 18.7 % (11.5-14.5)
[2021-07-01 07:21] LABS: ALANINE AMINOTRANSFERASE 20 U/L (12-78); ALBUMIN 1.5 g/dL (3.4-5.0); ALKALINE PHOSPHATASE 81 U/L (46-116); ANION GAP 2 mmol/L (8-16); ASPARTATE AMINOTRANSFERASE 43 U/L (15-37); BILIRUBIN,TOTAL 1.1 mg/dL (0.1-1.0); CALCIUM, TOTAL 7.5 mg/dL (8.8-10.5); CARBON DIOXIDE 28 mmol/L (22-29); CHLORIDE 109 mmol/L (98-107); CREATININE 1.15 mg/dL (0.60-1.30); FREE T4 (FREE THYROXINE) 1.39 ng/dL (0.76-1.46); GLOMERULAR FILTR. RATE CALC 50 mL/min (>60); GLUCOSE,RANDOM 161 mg/dL (70-110); POTASSIUM 4.7 mmol/L (3.5-5.1); SODIUM SERUM 139 mmol/L (136-145); TOTAL PROTEIN, SERUM 6.7 g/dL (6.4-8.2); UREA NITROGEN, BLOOD 23 mg/dL (7-18)
[2021-07-01 08:10] LABS: THYROID STIMULATING HORMONE < 0.01 uIU/mL (0.36-3.74)
[2021-07-01 08:13] VITALS: BP 121/84
[2021-07-01] MEDS: VALPROIC ACID 250 MG/5 ML SOLUTION UDCUP PO SCH (08:33)
[2021-07-01] MEDS: PANTOPRAZOLE SODIUM 40 MG/VIAL IVP SCH ×2 (08:34→20:34)
[2021-07-01] MEDS: MORPHINE SULFATE 2 MG/ML SYRINGE IVP PRN (08:48)
[2021-07-01 12:18] VITALS: BP 148/74
[2021-07-01] MEDS: CASPOFUNGIN ACETATE 50 MG in SODIUM CHLORIDE 0.9% 250 ML IV SCH (12:25)
[2021-07-01] MEDS ORDERED: DEXTROSE 50%-WATER 25 GM/50 ML SYRINGE IVP PRN (15:45)
[2021-07-01 16:01] VITALS: BP 139/73
[2021-07-01] MEDS: INSULIN REGULAR, HUMAN 100 UNITS/ML SQ PRN (18:41)
[2021-07-01 19:17] VITALS: BP 130/56
[2021-07-01 20:03] LABS: GLUCOMETER DEV NAME(LOC) 5S.1; GLUCOSE,POINT OF CARE 174 MG/DL (70-110)
[2021-07-01] MEDS: VALPROIC ACID 250 MG/5 ML SOLUTION UDCUP NG SCH (20:35)
[2021-07-02] VITALS (8 sets, daily range): BP systolic 104–189; BP diastolic 54–106
[2021-07-02] MEDS: MORPHINE SULFATE 2 MG/ML SYRINGE IVP PRN ×5 (01:34→23:48)
[2021-07-02 05:24] LABS: GLUCOMETER DEV NAME(LOC) 5S.2B; GLUCOSE,POINT OF CARE 132 MG/DL (70-110)
[2021-07-02] MEDS: INSULIN REGULAR, HUMAN 100 UNITS/ML SQ PRN ×2 (05:41→12:18)
[2021-07-02 06:19] LABS: BASOPHILS % (AUTO) 0.4 % (0.0-2.0); EOSINOPHILS % (AUTO) 2.4 % (1.0-6.0); HEMATOCRIT 28.6 % (36-46); HEMOGLOBIN 9.3 g/dL (12.0-16.0); LYMPHOCYTES # (AUTO) 1.1 K/uL (1.0-4.8); LYMPHOCYTES % (AUTO) 12.6 % (22.0-44.0); MEAN CORPUSCULAR HEMOGLOBIN 27.7 pg (26.0-34.0); MEAN CORPUSCULAR HGB CONC 32.6 G/dL (31.0-37.0); MEAN CORPUSCULAR VOLUME 85 fL (80-100); MONOCYTES # (AUTO) 0.4 K/uL (0.1-1.0); MONOCYTES % (AUTO) 4.9 % (2.0-9.0); NEUTROPHILS # (AUTO) 7.2 K/uL (1.8-7.7); NEUTROPHILS % (AUTO) 79.7 % (40.0-70.0); PLATELET COUNT (AUTO) 192 K/uL (150-450); RED BLOOD CELL COUNT(AUTO) 3.37 MIL/uL (4.00-5.20); RED CELL DISTRIBUTION WIDTH 19.3 % (11.5-14.5)
[2021-07-02 06:33] LABS: ALBUMIN 1.6 g/dL (3.4-5.0); BILIRUBIN,TOTAL 1.2 mg/dL (0.1-1.0); CALCIUM, TOTAL 7.8 mg/dL (8.8-10.5); CREATININE 1.25 mg/dL (0.60-1.30); POTASSIUM 4.7 mmol/L (3.5-5.1); TOTAL PROTEIN, SERUM 7.4 g/dL (6.4-8.2)
[2021-07-02] MEDS: PANTOPRAZOLE SODIUM 40 MG/VIAL IVP SCH ×2 (08:15→20:11)
[2021-07-02] MEDS: THIAMINE 100 MG TABLET NG SCH (08:15)
[2021-07-02] MEDS: VALPROIC ACID 250 MG/5 ML SOLUTION UDCUP NG SCH ×2 (08:15→20:11)
[2021-07-02 08:44] LABS: GLUCOMETER DEV NAME(LOC) 5S.2B; GLUCOSE,POINT OF CARE 191 MG/DL (70-110)
[2021-07-02] MEDS: CASPOFUNGIN ACETATE 50 MG in SODIUM CHLORIDE 0.9% 250 ML IV SCH (12:18)
[2021-07-02 13:54] LABS: GLUCOMETER DEV NAME(LOC) 5S.1; GLUCOSE,POINT OF CARE 146 MG/DL (70-110)
[2021-07-03] MEDS: INSULIN REGULAR, HUMAN 100 UNITS/ML SQ PRN (00:02)
[2021-07-03 00:06] LABS: GLUCOMETER DEV NAME(LOC) 5S.2B; GLUCOSE,POINT OF CARE 157 MG/DL (70-110)
[2021-07-03 00:22] LABS: GLUCOMETER DEV NAME(LOC) 5S.1; GLUCOSE,POINT OF CARE 101 MG/DL (70-110)
[2021-07-03] MEDS: MORPHINE SULFATE 2 MG/ML SYRINGE IVP PRN ×3 (03:16→15:24)
[2021-07-03 04:30] VITALS: BP 144/86
[2021-07-03] MEDS: LORazepam 2 MG/ML VIAL IVP PRN ×2 (06:15→20:18)
[2021-07-03 06:31] LABS: GLUCOMETER DEV NAME(LOC) 5S.1; GLUCOSE,POINT OF CARE 79 MG/DL (70-110)
[2021-07-03 06:41] LABS: BASOPHILS % (AUTO) 0.3 % (0.0-2.0); EOSINOPHILS % (AUTO) 2.2 % (1.0-6.0); HEMATOCRIT 31.5 % (36-46); LYMPHOCYTES % (AUTO) 20.2 % (22.0-44.0); MEAN CORPUSCULAR HEMOGLOBIN 27.7 pg (26.0-34.0); MEAN CORPUSCULAR HGB CONC 31.6 G/dL (31.0-37.0); MEAN CORPUSCULAR VOLUME 87 fL (80-100); MONOCYTES # (AUTO) 0.7 K/uL (0.1-1.0); MONOCYTES % (AUTO) 7.3 % (2.0-9.0); NEUTROPHILS # (AUTO) 6.8 K/uL (1.8-7.7); PLATELET COUNT (AUTO) 188 K/uL (150-450); RED CELL DISTRIBUTION WIDTH 19.5 % (11.5-14.5)
[2021-07-03 06:57] LABS: ALBUMIN 1.8 g/dL (3.4-5.0); BILIRUBIN,TOTAL 1.1 mg/dL (0.1-1.0); CALCIUM, TOTAL 8.5 mg/dL (8.8-10.5); CREATININE 1.16 mg/dL (0.60-1.30); TOTAL PROTEIN, SERUM 7.9 g/dL (6.4-8.2)
[2021-07-03 07:34] VITALS: BP_SYST 136; BP_SYST 148; BP_DIAS 57; BP_DIAS 75
[2021-07-03] MEDS: THIAMINE 100 MG TABLET NG SCH (08:17)
[2021-07-03] MEDS: PANTOPRAZOLE SODIUM 40 MG/VIAL IVP SCH ×2 (08:17→20:16)
[2021-07-03] MEDS: VALPROIC ACID 250 MG/5 ML SOLUTION UDCUP NG SCH ×2 (08:18→20:18)
[2021-07-03 12:02] VITALS: BP 157/79
[2021-07-03] MEDS: CASPOFUNGIN ACETATE 35 MG in SODIUM CHLORIDE 0.9% 100 ML IV SCH (12:23)
[2021-07-03 16:05] VITALS: BP 157/78
[2021-07-03 17:03] LABS: GLUCOMETER DEV NAME(LOC) 5S.2B; GLUCOSE,POINT OF CARE 115 MG/DL (70-110)
[2021-07-03 18:46] LABS: GLUCOMETER DEV NAME(LOC) 5S.2B; GLUCOSE,POINT OF CARE 96 MG/DL (70-110)
[2021-07-03 20:25] VITALS: BP 139/91
[2021-07-04 00:12] VITALS: BP 128/86
[2021-07-04 06:59] LABS: BASOPHILS % (AUTO) 0.3 % (0.0-2.0); HEMATOCRIT 32.3 % (36-46); HEMOGLOBIN 10.2 g/dL (12.0-16.0); LYMPHOCYTES # (AUTO) 1.8 K/uL (1.0-4.8); LYMPHOCYTES % (AUTO) 21.4 % (22.0-44.0); MEAN CORPUSCULAR HEMOGLOBIN 27.7 pg (26.0-34.0); MEAN CORPUSCULAR HGB CONC 31.6 G/dL (31.0-37.0); MEAN CORPUSCULAR VOLUME 88 fL (80-100); MONOCYTES # (AUTO) 0.6 K/uL (0.1-1.0); MONOCYTES % (AUTO) 7.3 % (2.0-9.0); NEUTROPHILS # (AUTO) 5.5 K/uL (1.8-7.7); PLATELET COUNT (AUTO) 194 K/uL (150-450); RED BLOOD CELL COUNT(AUTO) 3.69 MIL/uL (4.00-5.20); RED CELL DISTRIBUTION WIDTH 20.5 % (11.5-14.5)
[2021-07-04 07:08] LABS: ALBUMIN 1.7 g/dL (3.4-5.0); CALCIUM, TOTAL 8.2 mg/dL (8.8-10.5); CREATININE 1.16 mg/dL (0.60-1.30); TOTAL PROTEIN, SERUM 7.5 g/dL (6.4-8.2)
[2021-07-04 07:17] LABS: POTASSIUM 5.9 mmol/L (3.5-5.1)
[2021-07-04] MEDS ORDERED: INSULIN REGULAR, HUMAN 100 UNITS/ML IVP ONE (07:45)
[2021-07-04] MEDS ORDERED: DEXTROSE 50%-WATER 25 GM/50 ML SYRINGE IVP ONE (07:45)
[2021-07-04 07:58] LABS: GLUCOMETER DEV NAME(LOC) 5S.2B; GLUCOSE,POINT OF CARE 143 MG/DL (70-110)
[2021-07-04 07:58] LABS: GLUCOMETER DEV NAME(LOC) 5S.2B; GLUCOSE,POINT OF CARE 139 MG/DL (70-110)
[2021-07-04] MEDS: PANTOPRAZOLE SODIUM 40 MG/VIAL IVP SCH ×2 (08:12→21:13)
[2021-07-04] MEDS: THIAMINE 100 MG TABLET NG SCH (08:13)
[2021-07-04] MEDS: VALPROIC ACID 250 MG/5 ML SOLUTION UDCUP NG SCH ×2 (08:13→21:14)
[2021-07-04 09:33] VITALS: BP 129/66
[2021-07-04] MEDS: CASPOFUNGIN ACETATE 35 MG in SODIUM CHLORIDE 0.9% 100 ML IV SCH (11:08)
[2021-07-04 11:47] LABS: GLUCOMETER DEV NAME(LOC) 5S.2B; GLUCOSE,POINT OF CARE 162 MG/DL (70-110)
[2021-07-04 11:47] LABS: GLUCOMETER DEV NAME(LOC) 5S.2B; GLUCOSE,POINT OF CARE 129 MG/DL (70-110)
[2021-07-04 12:00] VITALS: BP 147/86
[2021-07-04 16:24] VITALS: BP 148/77
[2021-07-04] MEDS: INSULIN REGULAR, HUMAN 100 UNITS/ML SQ PRN (17:47)
[2021-07-04 19:23] VITALS: BP 146/65
[2021-07-04] MEDS: MORPHINE SULFATE 2 MG/ML SYRINGE IVP PRN (21:13)
[2021-07-04] MEDS: LORazepam 2 MG/ML VIAL IVP PRN (21:13)
[2021-07-04 23:53] VITALS: BP 147/78
[2021-07-05] MEDS: INSULIN REGULAR, HUMAN 100 UNITS/ML SQ PRN (00:41)
[2021-07-05] MEDS: MORPHINE SULFATE 2 MG/ML SYRINGE IVP PRN ×3 (00:43→19:52)
[2021-07-05 05:17] VITALS: BP 159/80
[2021-07-05] MEDS: LORazepam 2 MG/ML VIAL IVP PRN (05:19)
[2021-07-05 05:28] LABS: GLUCOMETER DEV NAME(LOC) 5S.1; GLUCOSE,POINT OF CARE 165 MG/DL (70-110)
[2021-07-05 05:28] LABS: GLUCOMETER DEV NAME(LOC) 5S.2B; GLUCOSE,POINT OF CARE 199 MG/DL (70-110)
[2021-07-05 05:56] LABS: GLUCOMETER DEV NAME(LOC) 5S.1; GLUCOSE,POINT OF CARE 69 MG/DL (70-110)
[2021-07-05 07:10] LABS: BASOPHILS % (AUTO) 0.4 % (0.0-2.0); EOSINOPHILS % (AUTO) 2.2 % (1.0-6.0); HEMATOCRIT 28.4 % (36-46); HEMOGLOBIN 9.1 g/dL (12.0-16.0); LYMPHOCYTES # (AUTO) 1.6 K/uL (1.0-4.8); LYMPHOCYTES % (AUTO) 20.5 % (22.0-44.0); MEAN CORPUSCULAR HEMOGLOBIN 27.6 pg (26.0-34.0); MEAN CORPUSCULAR VOLUME 86 fL (80-100); MONOCYTES # (AUTO) 0.9 K/uL (0.1-1.0); MONOCYTES % (AUTO) 11.3 % (2.0-9.0); NEUTROPHILS % (AUTO) 65.6 % (40.0-70.0); PLATELET COUNT (AUTO) 178 K/uL (150-450); RED CELL DISTRIBUTION WIDTH 19.2 % (11.5-14.5)
[2021-07-05 07:21] LABS: ALBUMIN 1.7 g/dL (3.4-5.0); BILIRUBIN,TOTAL 0.9 mg/dL (0.1-1.0); CALCIUM, TOTAL 8.1 mg/dL (8.8-10.5); CREATININE 1.37 mg/dL (0.60-1.30); POTASSIUM 4.8 mmol/L (3.5-5.1); TOTAL PROTEIN, SERUM 7.6 g/dL (6.4-8.2)
[2021-07-05 07:51] VITALS: BP 138/65
[2021-07-05] MEDS: VALPROIC ACID 250 MG/5 ML SOLUTION UDCUP NG SCH ×2 (08:42→19:44)
[2021-07-05] MEDS: PANTOPRAZOLE SODIUM 40 MG/VIAL IVP SCH ×2 (08:42→19:44)
[2021-07-05] MEDS: THIAMINE 100 MG TABLET NG SCH (08:42)
[2021-07-05 11:01] VITALS: BP 132/70
[2021-07-05] MEDS ORDERED: SODIUM CHLORIDE 0.9% 250 ML IV ONE (12:10)
[2021-07-05] MEDS: CASPOFUNGIN ACETATE 35 MG in SODIUM CHLORIDE 0.9% 100 ML IV SCH (12:12)
[2021-07-05 13:36] LABS: GLUCOMETER DEV NAME(LOC) 5S.1; GLUCOSE,POINT OF CARE 88 MG/DL (70-110)
[2021-07-05 15:55] VITALS: BP 139/76
[2021-07-05 19:52] VITALS: BP 122/80
[2021-07-05 20:44] LABS: GLUCOMETER DEV NAME(LOC) 5S.2B; GLUCOSE,POINT OF CARE 143 MG/DL (70-110)
[2021-07-06 00:11] VITALS: BP 142/70
[2021-07-06] MEDS: MORPHINE SULFATE 2 MG/ML SYRINGE IVP PRN ×3 (00:39→17:51)
[2021-07-06] MEDS: INSULIN REGULAR, HUMAN 100 UNITS/ML SQ PRN ×2 (00:50→11:48)
[2021-07-06 02:47] LABS: GLUCOMETER DEV NAME(LOC) 5S.2B; GLUCOSE,POINT OF CARE 243 MG/DL (70-110)
[2021-07-06 05:04] VITALS: BP 153/91
[2021-07-06 06:13] LABS: GLUCOMETER DEV NAME(LOC) 5S.1; GLUCOSE,POINT OF CARE 97 MG/DL (70-110)
[2021-07-06 07:13] VITALS: BP 132/94
[2021-07-06 07:50] LABS: ALBUMIN 1.8 g/dL (3.4-5.0); BILIRUBIN,TOTAL 0.8 mg/dL (0.1-1.0); CALCIUM, TOTAL 8.1 mg/dL (8.8-10.5); CREATININE 1.49 mg/dL (0.60-1.30); TOTAL PROTEIN, SERUM 7.9 g/dL (6.4-8.2)
[2021-07-06] MEDS: LORazepam 2 MG/ML VIAL IVP PRN (07:58)
[2021-07-06] MEDS: PANTOPRAZOLE SODIUM 40 MG/VIAL IVP SCH ×2 (09:08→20:38)
[2021-07-06] MEDS: VALPROIC ACID 250 MG/5 ML SOLUTION UDCUP NG SCH ×2 (09:09→20:38)
[2021-07-06] MEDS: THIAMINE 100 MG TABLET NG SCH (09:09)
[2021-07-06] MEDS: CefoTEtan DISOD 2 GM/DEXTROSE 50 ML IV SCH ×2 (11:29→23:40)
[2021-07-06] MEDS: CASPOFUNGIN ACETATE 35 MG in SODIUM CHLORIDE 0.9% 100 ML IV SCH (12:14)
[2021-07-06 13:20] VITALS: BP 142/84
[2021-07-06 15:11] VITALS: BP 132/78
[2021-07-06 16:36] LABS: GLUCOMETER DEV NAME(LOC) 5S.2B; GLUCOSE,POINT OF CARE 169 MG/DL (70-110)
[2021-07-06 20:05] VITALS: BP 153/83
[2021-07-06 21:24] LABS: GLUCOMETER DEV NAME(LOC) 5S.2B; GLUCOSE,POINT OF CARE 112 MG/DL (70-110)
[2021-07-07] VITALS (7 sets, daily range): BP systolic 121–159; BP diastolic 61–103
[2021-07-07 02:52] LABS: GLUCOMETER DEV NAME(LOC) 5S.1; GLUCOSE,POINT OF CARE 122 MG/DL (70-110)
[2021-07-07 02:52] LABS: GLUCOMETER DEV NAME(LOC) 5S.1; GLUCOSE,POINT OF CARE 165 MG/DL (70-110)
[2021-07-07] MEDS: LORazepam 2 MG/ML VIAL IVP PRN ×3 (06:06→20:39)
[2021-07-07] MEDS: PANTOPRAZOLE SODIUM 40 MG/VIAL IVP SCH ×2 (08:20→20:39)
[2021-07-07 08:35] LABS: GLUCOMETER DEV NAME(LOC) 5S.2B; GLUCOSE,POINT OF CARE 155 MG/DL (70-110)
[2021-07-07] MEDS: THIAMINE 100 MG TABLET NG SCH (09:32)
[2021-07-07] MEDS: VALPROIC ACID 250 MG/5 ML SOLUTION UDCUP NG SCH ×2 (09:32→20:39)
[2021-07-07] MEDS: CefoTEtan DISOD 2 GM/DEXTROSE 50 ML IV SCH ×2 (10:52→22:14)
[2021-07-07] MEDS ORDERED: SODIUM CHLORIDE 0.9% 250 ML IV ONE (10:53)
[2021-07-07] MEDS: INSULIN REGULAR, HUMAN 100 UNITS/ML SQ PRN ×2 (11:40→18:07)
[2021-07-07] MEDS: CASPOFUNGIN ACETATE 35 MG in SODIUM CHLORIDE 0.9% 100 ML IV SCH (12:03)
[2021-07-07 20:30] LABS: GLUCOMETER DEV NAME(LOC) 5S.1; GLUCOSE,POINT OF CARE 229 MG/DL (70-110)
[2021-07-07 20:30] LABS: GLUCOMETER DEV NAME(LOC) 5S.1; GLUCOSE,POINT OF CARE 174 MG/DL (70-110)
[2021-07-07] MEDS: QUEtiapine FUMARATE 100 MG TABLET NG PRN (20:39)
[2021-07-08] VITALS: BP 145/78
[2021-07-08 01:27] LABS: GLUCOMETER DEV NAME(LOC) 5N.1C; GLUCOSE,POINT OF CARE 106 MG/DL (70-110)
[2021-07-08 04:16] VITALS: BP 118/70
[2021-07-08] MEDS: INSULIN REGULAR, HUMAN 100 UNITS/ML SQ PRN ×3 (06:17→17:30)
[2021-07-08 06:21] LABS: GLUCOMETER DEV NAME(LOC) 5N.3; GLUCOSE,POINT OF CARE 228 MG/DL (70-110)
[2021-07-08] MEDS: VALPROIC ACID 250 MG/5 ML SOLUTION UDCUP NG SCH ×2 (09:05→20:54)
[2021-07-08] MEDS: THIAMINE 100 MG TABLET NG SCH (09:05)
[2021-07-08] MEDS: PANTOPRAZOLE SODIUM 40 MG/VIAL IVP SCH ×2 (09:05→20:54)
[2021-07-08] MEDS: LORazepam 2 MG/ML VIAL IVP PRN ×2 (09:23→15:52)
[2021-07-08] MEDS: CefoTEtan DISOD 2 GM/DEXTROSE 50 ML IV SCH ×2 (10:57→22:51)
[2021-07-08 11:34] VITALS: BP 131/98
[2021-07-08] MEDS: CASPOFUNGIN ACETATE 35 MG in SODIUM CHLORIDE 0.9% 100 ML IV SCH (12:09)
[2021-07-08 16:45] VITALS: BP 183/74
[2021-07-08] MEDS: MORPHINE SULFATE 2 MG/ML SYRINGE IVP PRN (17:17)
[2021-07-08 20:43] VITALS: BP 138/64
[2021-07-08 22:02] LABS: GLUCOMETER DEV NAME(LOC) 5S.1; GLUCOSE,POINT OF CARE 161 MG/DL (70-110)
[2021-07-09 00:35] VITALS: BP 147/60
[2021-07-09 01:28] LABS: GLUCOMETER DEV NAME(LOC) 5N.1C; GLUCOSE,POINT OF CARE 145 MG/DL (70-110)
[2021-07-09 01:28] LABS: GLUCOMETER DEV NAME(LOC) 5N.1C; GLUCOSE,POINT OF CARE 179 MG/DL (70-110)
[2021-07-09] MEDS: MORPHINE SULFATE 2 MG/ML SYRINGE IVP PRN ×2 (01:41→17:49)
[2021-07-09 04:10] VITALS: BP 161/78
[2021-07-09 08:14] LABS: ALBUMIN 1.7 g/dL (3.4-5.0)
[2021-07-09 08:18] VITALS: BP 186/81
[2021-07-09 08:30] LABS: BASOPHILS % (AUTO) 0.6 % (0.0-2.0); EOSINOPHILS % (AUTO) 0.5 % (1.0-6.0); HEMATOCRIT 32.3 % (36-46); HEMOGLOBIN 10.4 g/dL (12.0-16.0); LYMPHOCYTES # (AUTO) 1.2 K/uL (1.0-4.8); LYMPHOCYTES % (AUTO) 11.2 % (22.0-44.0); MEAN CORPUSCULAR HEMOGLOBIN 27.8 pg (26.0-34.0); MEAN CORPUSCULAR VOLUME 87 fL (80-100); MONOCYTES # (AUTO) 0.9 K/uL (0.1-1.0); MONOCYTES % (AUTO) 8.6 % (2.0-9.0); NEUTROPHILS # (AUTO) 8.6 K/uL (1.8-7.7); NEUTROPHILS % (AUTO) 79.1 % (40.0-70.0); PLATELET COUNT (AUTO) 198 K/uL (150-450); RED BLOOD CELL COUNT(AUTO) 3.72 MIL/uL (4.00-5.20); RED CELL DISTRIBUTION WIDTH 20.5 % (11.5-14.5)
[2021-07-09] MEDS: THIAMINE 100 MG TABLET NG SCH (08:38)
[2021-07-09] MEDS: PANTOPRAZOLE SODIUM 40 MG/VIAL IVP SCH ×2 (08:38→21:29)
[2021-07-09] MEDS: VALPROIC ACID 250 MG/5 ML SOLUTION UDCUP NG SCH ×2 (08:38→21:28)
[2021-07-09 08:39] LABS: BILIRUBIN,TOTAL 0.9 mg/dL (0.1-1.0); CALCIUM, TOTAL 8.3 mg/dL (8.8-10.5); CREATININE 1.67 mg/dL (0.60-1.30); POTASSIUM 4.4 mmol/L (3.5-5.1); TOTAL PROTEIN, SERUM 8.6 g/dL (6.4-8.2)
[2021-07-09] MEDS: LORazepam 2 MG/ML VIAL IVP PRN (08:44)
[2021-07-09 08:52] LABS: INR 1.2 (0.9-1.1); PROTHROMBIN TIME 12.4 SEC (9.4-11.6)
[2021-07-09] MEDS ORDERED: SODIUM CHLORIDE 0.9% 1,000 ML IV ONE (09:30)
[2021-07-09 11:19] LABS: SPECIMENTYPE,BODY FLUID THORACENTESIS
[2021-07-09] MEDS: CefoTEtan DISOD 2 GM/DEXTROSE 50 ML IV SCH ×2 (11:33→23:06)
[2021-07-09] MEDS: CASPOFUNGIN ACETATE 35 MG in SODIUM CHLORIDE 0.9% 100 ML IV SCH (12:10)
[2021-07-09 12:22] LABS: GLUCOMETER DEV NAME(LOC) 5S.1; GLUCOSE,POINT OF CARE 124 MG/DL (70-110)
[2021-07-09 12:44] VITALS: BP 136/69
[2021-07-09 12:58] LABS: APPEARANCE,SPUN,BODY FLUID CLEAR (CLEAR)
[2021-07-09 12:59] LABS: BASOPHILS,BODY FLUID 0 %; COLOR,BODY FLUID YELLOW (LT YELLOW); EOSINOPHILS,BF (ANAL) 0 %; LYMPHOCYTES,BODY FLUID 12 %; MONOCYTES,BODY FLUID 0 %; NEUTROPHILS,BODY FLUID 2 %; TOTAL VOLUME,BODY FLUID 1790 mL; WBC, BODY FLUID 9 /cu. mm.
[2021-07-09 13:16] LABS: OTHER CELLS,BODY FLUID MESOTHELIALS
[2021-07-09 13:18] LABS: APPEARANCE,UNSPUN,BODY FLUID HAZY (CLEAR)
[2021-07-09 16:13] VITALS: BP 165/95
[2021-07-09 16:56] LABS: GLUCOMETER DEV NAME(LOC) 5S.1; GLUCOSE,POINT OF CARE 148 MG/DL (70-110)
[2021-07-09] MEDS: INSULIN REGULAR, HUMAN 100 UNITS/ML SQ PRN (17:39)
[2021-07-09 19:47] LABS: GLUCOMETER DEV NAME(LOC) 5N.1C; GLUCOSE,POINT OF CARE 140 MG/DL (70-110)
[2021-07-09 19:57] VITALS: BP 140/75
[2021-07-09 21:38] LABS: GLUCOMETER DEV NAME(LOC) 5S.1; GLUCOSE,POINT OF CARE 231 MG/DL (70-110)
[2021-07-09] MEDS ORDERED: PROPOFOL 1% 20 ML VIAL IVP ONE (23:58)
[2021-07-09] MEDS ORDERED: MIDAZOLAM HCL 2 MG/2 ML VIAL IVP ONE (23:58)
[2021-07-10] VITALS (7 sets, daily range): BP systolic 130–155; BP diastolic 59–88
[2021-07-10] MEDS: MORPHINE SULFATE 2 MG/ML SYRINGE IVP PRN (01:37)
[2021-07-10] MEDS: INSULIN REGULAR, HUMAN 100 UNITS/ML SQ PRN ×4 (01:38→23:21)
[2021-07-10] MEDS: LORazepam 2 MG/ML VIAL IVP PRN (02:18)
[2021-07-10 06:46] LABS: CREATININE 1.55 mg/dL (0.60-1.30); POTASSIUM 3.7 mmol/L (3.5-5.1)
[2021-07-10] MEDS: THIAMINE 100 MG TABLET NG SCH (08:27)
[2021-07-10] MEDS: PANTOPRAZOLE SODIUM 40 MG/VIAL IVP SCH ×2 (08:27→21:16)
[2021-07-10] MEDS: QUEtiapine FUMARATE 100 MG TABLET NG PRN ×2 (08:27→17:47)
[2021-07-10] MEDS: VALPROIC ACID 250 MG/5 ML SOLUTION UDCUP NG SCH ×2 (08:27→21:16)
[2021-07-10 08:38] LABS: GLUCOMETER DEV NAME(LOC) 5S.2B; GLUCOSE,POINT OF CARE 136 MG/DL (70-110)
[2021-07-10] MEDS: CefoTEtan DISOD 2 GM/DEXTROSE 50 ML IV SCH ×2 (11:05→23:19)
[2021-07-10] MEDS: CASPOFUNGIN ACETATE 35 MG in SODIUM CHLORIDE 0.9% 100 ML IV SCH (11:31)
[2021-07-10 12:33] LABS: GLUCOMETER DEV NAME(LOC) 5S.1; GLUCOSE,POINT OF CARE 318 MG/DL (70-110)
[2021-07-10 12:33] LABS: GLUCOMETER DEV NAME(LOC) 5S.1; GLUCOSE,POINT OF CARE 78 MG/DL (70-110)
[2021-07-10 12:33] LABS: GLUCOMETER DEV NAME(LOC) 5S.2B; GLUCOSE,POINT OF CARE 248 MG/DL (70-110)
[2021-07-11 00:32] LABS: GLUCOMETER DEV NAME(LOC) 5S.2B; GLUCOSE,POINT OF CARE 217 MG/DL (70-110)
[2021-07-11 00:32] LABS: GLUCOMETER DEV NAME(LOC) 5S.2B; GLUCOSE,POINT OF CARE 230 MG/DL (70-110)
[2021-07-11 03:35] VITALS: BP 139/66
[2021-07-11] MEDS: INSULIN REGULAR, HUMAN 100 UNITS/ML SQ PRN ×3 (05:41→17:43)
[2021-07-11 07:30] VITALS: BP 128/72
[2021-07-11] MEDS: VALPROIC ACID 250 MG/5 ML SOLUTION UDCUP NG SCH ×2 (08:49→22:46)
[2021-07-11] MEDS: THIAMINE 100 MG TABLET NG SCH (08:49)
[2021-07-11] MEDS: PANTOPRAZOLE SODIUM 40 MG/VIAL IVP SCH ×2 (08:49→20:00)
[2021-07-11 09:00] LABS: GLUCOMETER DEV NAME(LOC) 5S.2B; GLUCOSE,POINT OF CARE 194 MG/DL (70-110)
[2021-07-11] MEDS: QUEtiapine FUMARATE 100 MG TABLET NG PRN (09:10)
[2021-07-11] MEDS: CefoTEtan DISOD 2 GM/DEXTROSE 50 ML IV SCH ×2 (11:10→23:09)
[2021-07-11 11:52] VITALS: BP 113/90
[2021-07-11] MEDS: CASPOFUNGIN ACETATE 35 MG in SODIUM CHLORIDE 0.9% 100 ML IV SCH (11:56)
[2021-07-11 12:12] LABS: GLUCOMETER DEV NAME(LOC) 5N.1C; GLUCOSE,POINT OF CARE 178 MG/DL (70-110)
[2021-07-11 15:33] VITALS: BP 135/95
[2021-07-11 17:43] LABS: GLUCOMETER DEV NAME(LOC) 5S.2B; GLUCOSE,POINT OF CARE 173 MG/DL (70-110)
[2021-07-11 20:19] VITALS: BP 148/70
[2021-07-12] MEDS: INSULIN REGULAR, HUMAN 100 UNITS/ML SQ PRN ×4 (00:58→23:50)
[2021-07-12] MEDS: QUEtiapine FUMARATE 100 MG TABLET NG PRN ×3 (01:14→19:52)
[2021-07-12 02:13] LABS: GLUCOMETER DEV NAME(LOC) 6N.1; GLUCOSE,POINT OF CARE 239 MG/DL (70-110)
[2021-07-12 04:24] VITALS: BP 132/72
[2021-07-12 06:54] LABS: GLUCOMETER DEV NAME(LOC) 6S.1; GLUCOSE,POINT OF CARE 161 MG/DL (70-110)
[2021-07-12 08:06] VITALS: BP 105/56
[2021-07-12] MEDS: PANTOPRAZOLE SODIUM 40 MG/VIAL IVP SCH ×2 (08:36→19:51)
[2021-07-12] MEDS: VALPROIC ACID 250 MG/5 ML SOLUTION UDCUP NG SCH ×2 (08:36→19:51)
[2021-07-12] MEDS: THIAMINE 100 MG TABLET NG SCH (08:36)
[2021-07-12] MEDS: CefoTEtan DISOD 2 GM/DEXTROSE 50 ML IV SCH ×2 (09:07→23:30)
[2021-07-12 12:21] LABS: BASOPHILS % (AUTO) 0.4 % (0.0-2.0); HEMATOCRIT 28.8 % (36-46); HEMOGLOBIN 9.5 g/dL (12.0-16.0); LYMPHOCYTES # (AUTO) 1.1 K/uL (1.0-4.8); LYMPHOCYTES % (AUTO) 15.5 % (22.0-44.0); MEAN CORPUSCULAR HEMOGLOBIN 28.2 pg (26.0-34.0); MEAN CORPUSCULAR HGB CONC 32.8 G/dL (31.0-37.0); MEAN CORPUSCULAR VOLUME 86 fL (80-100); MONOCYTES # (AUTO) 0.7 K/uL (0.1-1.0); MONOCYTES % (AUTO) 10.9 % (2.0-9.0); NEUTROPHILS # (AUTO) 4.9 K/uL (1.8-7.7); NEUTROPHILS % (AUTO) 71.2 % (40.0-70.0); PLATELET COUNT (AUTO) 142 K/uL (150-450); RED BLOOD CELL COUNT(AUTO) 3.35 MIL/uL (4.00-5.20); RED CELL DISTRIBUTION WIDTH 21.2 % (11.5-14.5)
[2021-07-12 12:29] LABS: CALCIUM, TOTAL 7.8 mg/dL (8.8-10.5); CREATININE 1.46 mg/dL (0.60-1.30); POTASSIUM 4.2 mmol/L (3.5-5.1)
[2021-07-12] MEDS: CASPOFUNGIN ACETATE 35 MG in SODIUM CHLORIDE 0.9% 100 ML IV SCH (12:32)
[2021-07-12 12:34] LABS: ALBUMIN 1.3 g/dL (3.4-5.0); BILIRUBIN,TOTAL 0.5 mg/dL (0.1-1.0); TOTAL PROTEIN, SERUM 7.4 g/dL (6.4-8.2)
[2021-07-12 12:47] LABS: GLUCOMETER DEV NAME(LOC) 6N.1; GLUCOSE,POINT OF CARE 241 MG/DL (70-110)
[2021-07-12 15:20] VITALS: BP 129/71
[2021-07-12 18:11] LABS: GLUCOMETER DEV NAME(LOC) 6N.1; GLUCOSE,POINT OF CARE 115 MG/DL (70-110)
[2021-07-12 20:00] VITALS: BP 153/76
[2021-07-13 04:50] VITALS: BP 153/77
[2021-07-13 06:30] LABS: BASOPHILS % (AUTO) 0.4 % (0.0-2.0); EOSINOPHILS % (AUTO) 5.3 % (1.0-6.0); HEMATOCRIT 26.8 % (36-46); HEMOGLOBIN 8.9 g/dL (12.0-16.0); LYMPHOCYTES # (AUTO) 1.4 K/uL (1.0-4.8); LYMPHOCYTES % (AUTO) 20.3 % (22.0-44.0); MEAN CORPUSCULAR HEMOGLOBIN 28.3 pg (26.0-34.0); MEAN CORPUSCULAR HGB CONC 33.1 G/dL (31.0-37.0); MEAN CORPUSCULAR VOLUME 85 fL (80-100); NEUTROPHILS # (AUTO) 3.9 K/uL (1.8-7.7); PLATELET COUNT (AUTO) 129 K/uL (150-450); RED BLOOD CELL COUNT(AUTO) 3.14 MIL/uL (4.00-5.20); RED CELL DISTRIBUTION WIDTH 21.2 % (11.5-14.5)
[2021-07-13 06:35] LABS: GLUCOMETER DEV NAME(LOC) 6S.1; GLUCOSE,POINT OF CARE 137 MG/DL (70-110)
[2021-07-13 06:35] LABS: GLUCOMETER DEV NAME(LOC) 6S.1; GLUCOSE,POINT OF CARE 285 MG/DL (70-110)
[2021-07-13 06:53] LABS: ALBUMIN 1.3 g/dL (3.4-5.0); BILIRUBIN,TOTAL 0.4 mg/dL (0.1-1.0); CALCIUM, TOTAL 8.1 mg/dL (8.8-10.5); CREATININE 1.23 mg/dL (0.60-1.30); POTASSIUM 4.5 mmol/L (3.5-5.1); TOTAL PROTEIN, SERUM 7.4 g/dL (6.4-8.2)
[2021-07-13 08:05] VITALS: BP 65/73
[2021-07-13 08:06] VITALS: BP 165/73
[2021-07-13] MEDS: VALPROIC ACID 250 MG/5 ML SOLUTION UDCUP NG SCH ×2 (09:01→23:45)
[2021-07-13] MEDS: PANTOPRAZOLE SODIUM 40 MG/VIAL IVP SCH ×2 (09:01→23:26)
[2021-07-13] MEDS: THIAMINE 100 MG TABLET NG SCH ×2 (09:01→23:27)
[2021-07-13] MEDS: QUEtiapine FUMARATE 100 MG TABLET NG PRN (09:06)
[2021-07-13] MEDS: CefoTEtan DISOD 2 GM/DEXTROSE 50 ML IV SCH (11:57)
[2021-07-13] MEDS: INSULIN REGULAR, HUMAN 100 UNITS/ML SQ PRN ×2 (12:00→23:35)
[2021-07-13] MEDS: CASPOFUNGIN ACETATE 35 MG in SODIUM CHLORIDE 0.9% 100 ML IV SCH (12:02)
[2021-07-13 12:31] LABS: GLUCOMETER DEV NAME(LOC) 6N.1; GLUCOSE,POINT OF CARE 222 MG/DL (70-110)
[2021-07-13 15:16] VITALS: BP 105/74
[2021-07-13 20:18] VITALS: BP 105/73
[2021-07-13] MEDS: MORPHINE SULFATE 2 MG/ML SYRINGE IVP PRN (21:20)
[2021-07-13 22:09] LABS: GLUCOMETER DEV NAME(LOC) 6N.1; GLUCOSE,POINT OF CARE 110 MG/DL (70-110)
[2021-07-13] MEDS: QUEtiapine FUMARATE 200 MG TABLET PO SCH (23:26)
[2021-07-14 00:29] LABS: GLUCOMETER DEV NAME(LOC) 6S.1; GLUCOSE,POINT OF CARE 224 MG/DL (70-110)
[2021-07-14 05:39] VITALS: BP 142/51
[2021-07-14 07:03] LABS: GLUCOMETER DEV NAME(LOC) 6N.1; GLUCOSE,POINT OF CARE 196 MG/DL (70-110)
[2021-07-14] MEDS: INSULIN REGULAR, HUMAN 100 UNITS/ML SQ PRN ×3 (07:03→17:48)
[2021-07-14 07:56] VITALS: BP 132/50
[2021-07-14 08:25] LABS: BASOPHILS % (AUTO) 0.4 % (0.0-2.0); EOSINOPHILS % (AUTO) 4.8 % (1.0-6.0); HEMATOCRIT 26.5 % (36-46); HEMOGLOBIN 8.9 g/dL (12.0-16.0); LYMPHOCYTES # (AUTO) 1.5 K/uL (1.0-4.8); LYMPHOCYTES % (AUTO) 22.2 % (22.0-44.0); MEAN CORPUSCULAR HEMOGLOBIN 28.4 pg (26.0-34.0); MEAN CORPUSCULAR HGB CONC 33.6 G/dL (31.0-37.0); MEAN CORPUSCULAR VOLUME 85 fL (80-100); MONOCYTES % (AUTO) 14.2 % (2.0-9.0); NEUTROPHILS # (AUTO) 4.1 K/uL (1.8-7.7); NEUTROPHILS % (AUTO) 58.4 % (40.0-70.0); PLATELET COUNT (AUTO) 134 K/uL (150-450); RED BLOOD CELL COUNT(AUTO) 3.13 MIL/uL (4.00-5.20); RED CELL DISTRIBUTION WIDTH 21.1 % (11.5-14.5)
[2021-07-14] MEDS: QUEtiapine FUMARATE 200 MG TABLET PO SCH ×2 (08:28→22:07)
[2021-07-14] MEDS: PANTOPRAZOLE SODIUM 40 MG/VIAL IVP SCH ×2 (08:28→22:06)
[2021-07-14] MEDS: VALPROIC ACID 250 MG/5 ML SOLUTION UDCUP NG SCH ×2 (08:28→22:47)
[2021-07-14 09:29] LABS: ALBUMIN 1.2 g/dL (3.4-5.0); BILIRUBIN,TOTAL 0.4 mg/dL (0.1-1.0); CALCIUM, TOTAL 7.6 mg/dL (8.8-10.5); CREATININE 1.15 mg/dL (0.60-1.30); POTASSIUM 4.8 mmol/L (3.5-5.1); TOTAL PROTEIN, SERUM 7.2 g/dL (6.4-8.2)
[2021-07-14 12:55] LABS: GLUCOMETER DEV NAME(LOC) 6N.1; GLUCOSE,POINT OF CARE 179 MG/DL (70-110)
[2021-07-14 15:46] VITALS: BP 139/75
[2021-07-14] MEDS: LORazepam 2 MG/ML VIAL IVP PRN (15:56)
[2021-07-14] MEDS: OLANZapine 5 MG TABLET PO PRN (15:56)
[2021-07-14 19:42] LABS: GLUCOMETER DEV NAME(LOC) 6N.1; GLUCOSE,POINT OF CARE 144 MG/DL (70-110)
[2021-07-14 20:04] VITALS: BP 147/80
[2021-07-14 22:31] LABS: GLUCOMETER DEV NAME(LOC) 6S.1; GLUCOSE,POINT OF CARE 125 MG/DL (70-110)
[2021-07-15 05:38] VITALS: BP 101/70
[2021-07-15 06:49] LABS: GLUCOMETER DEV NAME(LOC) 6N.1; GLUCOSE,POINT OF CARE 155 MG/DL (70-110)
[2021-07-15 07:05] LABS: ALBUMIN 1.4 g/dL (3.4-5.0); BILIRUBIN,TOTAL 0.4 mg/dL (0.1-1.0); CALCIUM, TOTAL 7.8 mg/dL (8.8-10.5); CREATININE 1.08 mg/dL (0.60-1.30); POTASSIUM 5.6 mmol/L (3.5-5.1); TOTAL PROTEIN, SERUM 7.8 g/dL (6.4-8.2)
[2021-07-15 07:06] LABS: BASOPHILS % (AUTO) 0.5 % (0.0-2.0); EOSINOPHILS % (AUTO) 4.8 % (1.0-6.0); HEMATOCRIT 28.3 % (36-46); HEMOGLOBIN 9.4 g/dL (12.0-16.0); LYMPHOCYTES # (AUTO) 1.9 K/uL (1.0-4.8); LYMPHOCYTES % (AUTO) 23.1 % (22.0-44.0); MEAN CORPUSCULAR HEMOGLOBIN 28.1 pg (26.0-34.0); MEAN CORPUSCULAR HGB CONC 33.3 G/dL (31.0-37.0); MEAN CORPUSCULAR VOLUME 84 fL (80-100); NEUTROPHILS # (AUTO) 4.9 K/uL (1.8-7.7); NEUTROPHILS % (AUTO) 59.6 % (40.0-70.0); PLATELET COUNT (AUTO) 173 K/uL (150-450); RED BLOOD CELL COUNT(AUTO) 3.36 MIL/uL (4.00-5.20); RED CELL DISTRIBUTION WIDTH 21.2 % (11.5-14.5)
[2021-07-15 07:37] VITALS: BP 108/64
[2021-07-15] MEDS: PANTOPRAZOLE SODIUM 40 MG/VIAL IVP SCH ×2 (07:58→21:48)
[2021-07-15] MEDS: LORazepam 2 MG/ML VIAL IVP PRN ×3 (07:58→23:10)
[2021-07-15] MEDS: VALPROIC ACID 250 MG/5 ML SOLUTION UDCUP NG SCH (07:58)
[2021-07-15] MEDS: THIAMINE 100 MG TABLET NG SCH (07:59)
[2021-07-15] MEDS: QUEtiapine FUMARATE 200 MG TABLET PO SCH (07:59)
[2021-07-15] MEDS: INSULIN REGULAR, HUMAN 100 UNITS/ML SQ PRN (11:30)
[2021-07-15 11:36] LABS: GLUCOMETER DEV NAME(LOC) 6N.1; GLUCOSE,POINT OF CARE 196 MG/DL (70-110)
[2021-07-15 16:00] VITALS: BP 111/73
[2021-07-15 19:06] LABS: GLUCOMETER DEV NAME(LOC) 6S.1; GLUCOSE,POINT OF CARE 127 MG/DL (70-110)
[2021-07-15 20:47] VITALS: BP 156/83
[2021-07-15] MEDS ORDERED: SODIUM CHLORIDE 0.45% 1,000 ML IV ONE (22:30)
[2021-07-16 00:17] LABS: GLUCOMETER DEV NAME(LOC) 6N.1; GLUCOSE,POINT OF CARE 83 MG/DL (70-110)
[2021-07-16] MEDS: MORPHINE SULFATE 2 MG/ML SYRINGE IVP PRN (01:40)
[2021-07-16 04:38] VITALS: BP 123/71
[2021-07-16 05:52] LABS: GLUCOMETER DEV NAME(LOC) 6S.1; GLUCOSE,POINT OF CARE 84 MG/DL (70-110)
[2021-07-16 06:26] LABS: BASOPHILS % (AUTO) 0.4 % (0.0-2.0); EOSINOPHILS % (AUTO) 1.4 % (1.0-6.0); HEMATOCRIT 28.2 % (36-46); HEMOGLOBIN 9.4 g/dL (12.0-16.0); LYMPHOCYTES # (AUTO) 2.2 K/uL (1.0-4.8); LYMPHOCYTES % (AUTO) 18.6 % (22.0-44.0); MEAN CORPUSCULAR HGB CONC 33.3 G/dL (31.0-37.0); MEAN CORPUSCULAR VOLUME 84 fL (80-100); MONOCYTES # (AUTO) 1.3 K/uL (0.1-1.0); MONOCYTES % (AUTO) 11.2 % (2.0-9.0); NEUTROPHILS # (AUTO) 8.1 K/uL (1.8-7.7); NEUTROPHILS % (AUTO) 68.4 % (40.0-70.0); PLATELET COUNT (AUTO) 198 K/uL (150-450); RED BLOOD CELL COUNT(AUTO) 3.36 MIL/uL (4.00-5.20); RED CELL DISTRIBUTION WIDTH 20.6 % (11.5-14.5)
[2021-07-16 06:36] LABS: ALBUMIN 1.5 g/dL (3.4-5.0); BILIRUBIN,TOTAL 0.7 mg/dL (0.1-1.0); CALCIUM, TOTAL 8.3 mg/dL (8.8-10.5); CREATININE 1.16 mg/dL (0.60-1.30); POTASSIUM 5.1 mmol/L (3.5-5.1); TOTAL PROTEIN, SERUM 8.8 g/dL (6.4-8.2)
[2021-07-16 08:05] VITALS: BP 121/62
[2021-07-16] MEDS: THIAMINE 100 MG TABLET NG SCH (08:12)
[2021-07-16] MEDS: PANTOPRAZOLE SODIUM 40 MG/VIAL IVP SCH ×2 (08:12→21:00)
[2021-07-16] MEDS: QUEtiapine FUMARATE 200 MG TABLET PO SCH ×2 (08:12→08:14)
[2021-07-16] MEDS: VALPROIC ACID 250 MG/5 ML SOLUTION UDCUP NG SCH (08:12)
[2021-07-16] MEDS: INSULIN REGULAR, HUMAN 100 UNITS/ML SQ PRN ×2 (10:09→17:14)
[2021-07-16 13:58] LABS: GLUCOMETER DEV NAME(LOC) 6S.1; GLUCOSE,POINT OF CARE 160 MG/DL (70-110)
[2021-07-16 15:29] VITALS: BP 158/98
[2021-07-16 17:37] VITALS: BP 142/78
[2021-07-16 19:41] VITALS: BP 148/58
[2021-07-16 20:00] LABS: GLUCOMETER DEV NAME(LOC) 6S.1; GLUCOSE,POINT OF CARE 214 MG/DL (70-110)
[2021-07-17] VITALS (7 sets, daily range): BP systolic 129–153; BP diastolic 56–81
[2021-07-17] MEDS: QUEtiapine FUMARATE 200 MG TABLET PO SCH ×3 (00:21→21:19)
[2021-07-17] MEDS: VALPROIC ACID 250 MG/5 ML SOLUTION UDCUP NG SCH ×3 (00:21→21:19)
[2021-07-17] MEDS: INSULIN REGULAR, HUMAN 100 UNITS/ML SQ PRN ×2 (06:50→16:56)
[2021-07-17 07:04] LABS: BASOPHILS % (AUTO) 0.4 % (0.0-2.0); EOSINOPHILS % (AUTO) 2.2 % (1.0-6.0); HEMATOCRIT 26.5 % (36-46); HEMOGLOBIN 8.9 g/dL (12.0-16.0); LYMPHOCYTES # (AUTO) 2.3 K/uL (1.0-4.8); LYMPHOCYTES % (AUTO) 27.2 % (22.0-44.0); MEAN CORPUSCULAR HEMOGLOBIN 28.2 pg (26.0-34.0); MEAN CORPUSCULAR HGB CONC 33.5 G/dL (31.0-37.0); MEAN CORPUSCULAR VOLUME 84 fL (80-100); MONOCYTES % (AUTO) 11.8 % (2.0-9.0); NEUTROPHILS % (AUTO) 58.4 % (40.0-70.0); PLATELET COUNT (AUTO) 159 K/uL (150-450); RED BLOOD CELL COUNT(AUTO) 3.15 MIL/uL (4.00-5.20); RED CELL DISTRIBUTION WIDTH 21.6 % (11.5-14.5)
[2021-07-17 07:18] LABS: ALBUMIN 1.4 g/dL (3.4-5.0); BILIRUBIN,TOTAL 0.4 mg/dL (0.1-1.0); CALCIUM, TOTAL 7.7 mg/dL (8.8-10.5); CREATININE 1.29 mg/dL (0.60-1.30); POTASSIUM 5.5 mmol/L (3.5-5.1); TOTAL PROTEIN, SERUM 8.3 g/dL (6.4-8.2)
[2021-07-17] MEDS: MORPHINE SULFATE 2 MG/ML SYRINGE IVP PRN ×2 (09:54→16:56)
[2021-07-17] MEDS: THIAMINE 100 MG TABLET NG SCH (09:54)
[2021-07-17] MEDS: PANTOPRAZOLE SODIUM 40 MG/VIAL IVP SCH ×2 (09:55→21:18)
[2021-07-17 11:25] LABS: GLUCOMETER DEV NAME(LOC) 6N.1; GLUCOSE,POINT OF CARE 191 MG/DL (70-110)
[2021-07-17 20:15] LABS: GLUCOMETER DEV NAME(LOC) 6S.1; GLUCOSE,POINT OF CARE 134 MG/DL (70-110)
[2021-07-17 20:16] LABS: GLUCOMETER DEV NAME(LOC) 6S.1; GLUCOSE,POINT OF CARE 222 MG/DL (70-110)
[2021-07-18] MEDS: MORPHINE SULFATE 2 MG/ML SYRINGE IVP PRN ×3 (02:47→16:27)
[2021-07-18 03:21] LABS: GLUCOMETER DEV NAME(LOC) 6S.1; GLUCOSE,POINT OF CARE 155 MG/DL (70-110)
[2021-07-18 04:40] VITALS: BP 103/55
[2021-07-18 05:59] LABS: GLUCOMETER DEV NAME(LOC) 6N.1; GLUCOSE,POINT OF CARE 200 MG/DL (70-110)
[2021-07-18] MEDS: INSULIN REGULAR, HUMAN 100 UNITS/ML SQ PRN ×4 (06:59→23:46)
[2021-07-18 08:09] VITALS: BP 123/81
[2021-07-18 08:37] LABS: BASOPHILS % (AUTO) 0.4 % (0.0-2.0); EOSINOPHILS % (AUTO) 2.5 % (1.0-6.0); HEMATOCRIT 29.5 % (36-46); HEMOGLOBIN 9.8 g/dL (12.0-16.0); LYMPHOCYTES # (AUTO) 2.2 K/uL (1.0-4.8); LYMPHOCYTES % (AUTO) 23.7 % (22.0-44.0); MEAN CORPUSCULAR HGB CONC 33.2 G/dL (31.0-37.0); MEAN CORPUSCULAR VOLUME 84 fL (80-100); MONOCYTES # (AUTO) 1.1 K/uL (0.1-1.0); MONOCYTES % (AUTO) 11.9 % (2.0-9.0); NEUTROPHILS # (AUTO) 5.6 K/uL (1.8-7.7); NEUTROPHILS % (AUTO) 61.5 % (40.0-70.0); PLATELET COUNT (AUTO) 193 K/uL (150-450); RED BLOOD CELL COUNT(AUTO) 3.51 MIL/uL (4.00-5.20); RED CELL DISTRIBUTION WIDTH 21.1 % (11.5-14.5)
[2021-07-18] MEDS: QUEtiapine FUMARATE 200 MG TABLET PO SCH ×2 (08:47→20:02)
[2021-07-18] MEDS: THIAMINE 100 MG TABLET NG SCH (08:48)
[2021-07-18] MEDS: VALPROIC ACID 250 MG/5 ML SOLUTION UDCUP NG SCH ×2 (08:48→20:01)
[2021-07-18] MEDS: PANTOPRAZOLE SODIUM 40 MG/VIAL IVP SCH ×2 (08:49→20:02)
[2021-07-18 09:03] LABS: ALBUMIN 1.5 g/dL (3.4-5.0); BILIRUBIN,TOTAL 0.4 mg/dL (0.1-1.0); CALCIUM, TOTAL 8.1 mg/dL (8.8-10.5); CREATININE 1.28 mg/dL (0.60-1.30); POTASSIUM 5.6 mmol/L (3.5-5.1)
[2021-07-18 13:23] LABS: GLUCOMETER DEV NAME(LOC) 6S.1; GLUCOSE,POINT OF CARE 128 MG/DL (70-110)
[2021-07-18 16:08] VITALS: BP 143/63
[2021-07-18] MEDS: LORazepam 2 MG/ML VIAL IVP PRN (18:24)
[2021-07-18 18:38] LABS: GLUCOMETER DEV NAME(LOC) 6S.1; GLUCOSE,POINT OF CARE 170 MG/DL (70-110)
[2021-07-18 19:22] VITALS: BP 116/63
[2021-07-18 23:32] VITALS: BP 127/79
[2021-07-19 01:21] LABS: GLUCOMETER DEV NAME(LOC) 6N.1; GLUCOSE,POINT OF CARE 183 MG/DL (70-110)
[2021-07-19 04:05] VITALS: BP 129/59
[2021-07-19] MEDS: INSULIN REGULAR, HUMAN 100 UNITS/ML SQ PRN ×3 (05:55→17:50)
[2021-07-19 06:50] LABS: ALBUMIN 1.5 g/dL (3.4-5.0); BILIRUBIN,TOTAL 0.5 mg/dL (0.1-1.0); CALCIUM, TOTAL 8.2 mg/dL (8.8-10.5); CREATININE 1.47 mg/dL (0.60-1.30); POTASSIUM 5.7 mmol/L (3.5-5.1)
[2021-07-19 07:29] LABS: GLUCOMETER DEV NAME(LOC) 6N.1; GLUCOSE,POINT OF CARE 187 MG/DL (70-110)
[2021-07-19 08:00] VITALS: BP 132/71
[2021-07-19] MEDS: QUEtiapine FUMARATE 200 MG TABLET PO SCH ×2 (08:26→20:48)
[2021-07-19] MEDS: THIAMINE 100 MG TABLET NG SCH (08:26)
[2021-07-19] MEDS: LORazepam 2 MG/ML VIAL IVP PRN (08:27)
[2021-07-19] MEDS: VALPROIC ACID 250 MG/5 ML SOLUTION UDCUP NG SCH ×2 (08:27→20:52)
[2021-07-19] MEDS: PANTOPRAZOLE SODIUM 40 MG/VIAL IVP SCH ×2 (08:27→20:52)
[2021-07-19 10:41] LABS: BASOPHILS % (AUTO) 0.2 % (0.0-2.0); EOSINOPHILS % (AUTO) 1.6 % (1.0-6.0); HEMATOCRIT 26.2 % (36-46); HEMOGLOBIN 8.7 g/dL (12.0-16.0); LYMPHOCYTES # (AUTO) 1.9 K/uL (1.0-4.8); MEAN CORPUSCULAR HEMOGLOBIN 27.9 pg (26.0-34.0); MEAN CORPUSCULAR HGB CONC 33.4 G/dL (31.0-37.0); MEAN CORPUSCULAR VOLUME 84 fL (80-100); MONOCYTES # (AUTO) 1.4 K/uL (0.1-1.0); MONOCYTES % (AUTO) 14.8 % (2.0-9.0); NEUTROPHILS % (AUTO) 63.4 % (40.0-70.0); PLATELET COUNT (AUTO) 173 K/uL (150-450); RED BLOOD CELL COUNT(AUTO) 3.13 MIL/uL (4.00-5.20); RED CELL DISTRIBUTION WIDTH 21.1 % (11.5-14.5)
[2021-07-19] MEDS ORDERED: INSULIN REGULAR, HUMAN 100 UNITS/ML IVP ONE (13:00)
[2021-07-19] MEDS ORDERED: DEXTROSE 50%-WATER 25 GM/50 ML SYRINGE IVP ONE (13:00)
[2021-07-19] MEDS: RIFAXIMIN 550 MG TABLET PO SCH ×2 (13:31→20:48)
[2021-07-19 14:42] LABS: GLUCOMETER DEV NAME(LOC) 6S.1; GLUCOSE,POINT OF CARE 231 MG/DL (70-110)
[2021-07-19 16:00] VITALS: BP 126/64
[2021-07-19 19:47] VITALS: BP 165/89
[2021-07-19 19:56] LABS: GLUCOMETER DEV NAME(LOC) 6N.1; GLUCOSE,POINT OF CARE 204 MG/DL (70-110)
[2021-07-20] MEDS: INSULIN REGULAR, HUMAN 100 UNITS/ML SQ PRN ×5 (00:11→23:14)
[2021-07-20 00:50] VITALS: BP 135/80
[2021-07-20 03:23] LABS: GLUCOMETER DEV NAME(LOC) 6S.1; GLUCOSE,POINT OF CARE 201 MG/DL (70-110)
[2021-07-20 05:00] VITALS: BP 129/79
[2021-07-20 06:40] LABS: GLUCOMETER DEV NAME(LOC) 6N.1; GLUCOSE,POINT OF CARE 195 MG/DL (70-110)
[2021-07-20 06:50] LABS: BASOPHILS % (AUTO) 0.2 % (0.0-2.0); EOSINOPHILS % (AUTO) 1.9 % (1.0-6.0); HEMATOCRIT 28.7 % (36-46); HEMOGLOBIN 9.6 g/dL (12.0-16.0); LYMPHOCYTES # (AUTO) 1.9 K/uL (1.0-4.8); LYMPHOCYTES % (AUTO) 20.2 % (22.0-44.0); MEAN CORPUSCULAR HEMOGLOBIN 28.2 pg (26.0-34.0); MEAN CORPUSCULAR HGB CONC 33.3 G/dL (31.0-37.0); MEAN CORPUSCULAR VOLUME 85 fL (80-100); MONOCYTES # (AUTO) 1.2 K/uL (0.1-1.0); MONOCYTES % (AUTO) 12.4 % (2.0-9.0); NEUTROPHILS # (AUTO) 6.3 K/uL (1.8-7.7); NEUTROPHILS % (AUTO) 65.3 % (40.0-70.0); PLATELET COUNT (AUTO) 181 K/uL (150-450); RED BLOOD CELL COUNT(AUTO) 3.39 MIL/uL (4.00-5.20); RED CELL DISTRIBUTION WIDTH 21.3 % (11.5-14.5)
[2021-07-20 07:01] LABS: ALBUMIN 1.7 g/dL (3.4-5.0); BILIRUBIN,TOTAL 0.5 mg/dL (0.1-1.0); CALCIUM, TOTAL 8.7 mg/dL (8.8-10.5); CREATININE 1.28 mg/dL (0.60-1.30); POTASSIUM 5.5 mmol/L (3.5-5.1); TOTAL PROTEIN, SERUM 9.7 g/dL (6.4-8.2)
[2021-07-20 07:28] VITALS: BP 121/106
[2021-07-20] MEDS: PANTOPRAZOLE SODIUM 40 MG/VIAL IVP SCH ×2 (08:21→20:08)
[2021-07-20] MEDS: OLANZapine 5 MG TABLET PO PRN (08:21)
[2021-07-20] MEDS: QUEtiapine FUMARATE 200 MG TABLET PO SCH ×2 (08:22→20:08)
[2021-07-20] MEDS: RIFAXIMIN 550 MG TABLET PO SCH ×2 (08:22→20:08)
[2021-07-20] MEDS: VALPROIC ACID 250 MG/5 ML SOLUTION UDCUP NG SCH ×2 (08:22→20:08)
[2021-07-20] MEDS: THIAMINE 100 MG TABLET NG SCH (08:22)
[2021-07-20 11:00] VITALS: BP 150/78
[2021-07-20 15:02] VITALS: BP 151/76
[2021-07-20 15:34] LABS: GLUCOMETER DEV NAME(LOC) 6S.1; GLUCOSE,POINT OF CARE 227 MG/DL (70-110)
[2021-07-20] MEDS: MORPHINE SULFATE 2 MG/ML SYRINGE IVP PRN (18:28)
[2021-07-20 19:12] VITALS: BP 148/84
[2021-07-20 22:03] LABS: GLUCOMETER DEV NAME(LOC) 6N.1; GLUCOSE,POINT OF CARE 154 MG/DL (70-110)
[2021-07-21] MEDS: MORPHINE SULFATE 2 MG/ML SYRINGE IVP PRN ×3 (02:16→17:28)
[2021-07-21 04:23] VITALS: BP 142/87
[2021-07-21] MEDS: INSULIN REGULAR, HUMAN 100 UNITS/ML SQ PRN ×4 (04:57→23:10)
[2021-07-21 06:30] LABS: BASOPHILS % (AUTO) 0.5 % (0.0-2.0); EOSINOPHILS % (AUTO) 3.2 % (1.0-6.0); HEMATOCRIT 26.2 % (36-46); HEMOGLOBIN 8.9 g/dL (12.0-16.0); LYMPHOCYTES # (AUTO) 2.2 K/uL (1.0-4.8); MEAN CORPUSCULAR HEMOGLOBIN 28.4 pg (26.0-34.0); MEAN CORPUSCULAR HGB CONC 34.1 G/dL (31.0-37.0); MEAN CORPUSCULAR VOLUME 83 fL (80-100); MONOCYTES # (AUTO) 1.3 K/uL (0.1-1.0); MONOCYTES % (AUTO) 13.6 % (2.0-9.0); NEUTROPHILS # (AUTO) 5.6 K/uL (1.8-7.7); NEUTROPHILS % (AUTO) 59.7 % (40.0-70.0); PLATELET COUNT (AUTO) 188 K/uL (150-450); RED BLOOD CELL COUNT(AUTO) 3.15 MIL/uL (4.00-5.20); RED CELL DISTRIBUTION WIDTH 21.4 % (11.5-14.5)
[2021-07-21 06:46] LABS: ALBUMIN 1.5 g/dL (3.4-5.0); BILIRUBIN,TOTAL 0.4 mg/dL (0.1-1.0); CALCIUM, TOTAL 8.2 mg/dL (8.8-10.5); CREATININE 1.38 mg/dL (0.60-1.30); POTASSIUM 5.2 mmol/L (3.5-5.1); TOTAL PROTEIN, SERUM 9.4 g/dL (6.4-8.2)
[2021-07-21 06:52] LABS: GLUCOMETER DEV NAME(LOC) 6N.1; GLUCOSE,POINT OF CARE 152 MG/DL (70-110)
[2021-07-21 06:52] LABS: GLUCOMETER DEV NAME(LOC) 6N.1; GLUCOSE,POINT OF CARE 161 MG/DL (70-110)
[2021-07-21] MEDS: THIAMINE 100 MG TABLET NG SCH (08:21)
[2021-07-21] MEDS: RIFAXIMIN 550 MG TABLET PO SCH ×2 (08:21→19:54)
[2021-07-21] MEDS: VALPROIC ACID 250 MG/5 ML SOLUTION UDCUP NG SCH ×2 (08:21→19:54)
[2021-07-21] MEDS: PANTOPRAZOLE SODIUM 40 MG/VIAL IVP SCH ×2 (08:21→19:54)
[2021-07-21] MEDS: QUEtiapine FUMARATE 200 MG TABLET PO SCH ×2 (08:21→19:54)
[2021-07-21 08:46] VITALS: BP 125/89
[2021-07-21 14:32] LABS: GLUCOMETER DEV NAME(LOC) 6S.1; GLUCOSE,POINT OF CARE 203 MG/DL (70-110)
[2021-07-21 17:03] VITALS: BP 109/66
[2021-07-21 19:30] VITALS: BP 154/73
[2021-07-21 22:38] LABS: GLUCOMETER DEV NAME(LOC) 6N.1; GLUCOSE,POINT OF CARE 141 MG/DL (70-110)
[2021-07-21] MEDS: LORazepam 2 MG/ML VIAL IVP PRN (23:11)
[2021-07-22 04:45] VITALS: BP 139/62
[2021-07-22] MEDS: MORPHINE SULFATE 2 MG/ML SYRINGE IVP PRN ×2 (05:06→16:13)
[2021-07-22 05:07] LABS: HIV 1-2 SCREEN 4TH GEN W/RFLX Non Reactive (Non Reactive)
[2021-07-22 07:23] VITALS: BP 143/83
[2021-07-22 07:47] LABS: GLUCOMETER DEV NAME(LOC) 6S.1; GLUCOSE,POINT OF CARE 148 MG/DL (70-110)
[2021-07-22 07:47] LABS: GLUCOMETER DEV NAME(LOC) 6S.1; GLUCOSE,POINT OF CARE 125 MG/DL (70-110)
[2021-07-22] MEDS: RIFAXIMIN 550 MG TABLET PO SCH ×2 (09:03→21:18)
[2021-07-22] MEDS: VALPROIC ACID 250 MG/5 ML SOLUTION UDCUP NG SCH ×2 (09:03→21:18)
[2021-07-22] MEDS: PANTOPRAZOLE SODIUM 40 MG/VIAL IVP SCH ×2 (09:03→21:18)
[2021-07-22] MEDS: QUEtiapine FUMARATE 200 MG TABLET PO SCH ×2 (09:03→21:18)
[2021-07-22] MEDS: INSULIN REGULAR, HUMAN 100 UNITS/ML SQ PRN ×3 (11:49→21:38)
[2021-07-22 14:08] LABS: GLUCOMETER DEV NAME(LOC) 6N.1; GLUCOSE,POINT OF CARE 217 MG/DL (70-110)
[2021-07-22 15:42] VITALS: BP 140/73
[2021-07-22 18:56] LABS: GLUCOMETER DEV NAME(LOC) 6N.1; GLUCOSE,POINT OF CARE 145 MG/DL (70-110)
[2021-07-22 19:37] VITALS: BP 123/81
[2021-07-22 23:20] LABS: GLUCOMETER DEV NAME(LOC) 6N.1; GLUCOSE,POINT OF CARE 184 MG/DL (70-110)
[2021-07-23 03:24] VITALS: BP 160/86
[2021-07-23] MEDS: MORPHINE SULFATE 2 MG/ML SYRINGE IVP PRN ×3 (04:00→17:13)
[2021-07-23] MEDS: INSULIN REGULAR, HUMAN 100 UNITS/ML SQ PRN ×4 (05:02→21:23)
[2021-07-23 06:04] LABS: GLUCOMETER DEV NAME(LOC) 6S.1; GLUCOSE,POINT OF CARE 168 MG/DL (70-110)
[2021-07-23 06:31] LABS: BASOPHILS % (AUTO) 0.4 % (0.0-2.0); EOSINOPHILS % (AUTO) 0.7 % (1.0-6.0); HEMATOCRIT 26.3 % (36-46); HEMOGLOBIN 8.9 g/dL (12.0-16.0); LYMPHOCYTES # (AUTO) 2.2 K/uL (1.0-4.8); LYMPHOCYTES % (AUTO) 19.5 % (22.0-44.0); MEAN CORPUSCULAR HEMOGLOBIN 28.3 pg (26.0-34.0); MEAN CORPUSCULAR HGB CONC 33.8 G/dL (31.0-37.0); MEAN CORPUSCULAR VOLUME 84 fL (80-100); MONOCYTES # (AUTO) 1.7 K/uL (0.1-1.0); MONOCYTES % (AUTO) 15.2 % (2.0-9.0); NEUTROPHILS # (AUTO) 7.3 K/uL (1.8-7.7); NEUTROPHILS % (AUTO) 64.2 % (40.0-70.0); PLATELET COUNT (AUTO) 150 K/uL (150-450); RED BLOOD CELL COUNT(AUTO) 3.14 MIL/uL (4.00-5.20); RED CELL DISTRIBUTION WIDTH 21.9 % (11.5-14.5)
[2021-07-23 06:54] LABS: ALBUMIN 1.6 g/dL (3.4-5.0); BILIRUBIN,TOTAL 0.4 mg/dL (0.1-1.0); CALCIUM, TOTAL 8.8 mg/dL (8.8-10.5); CREATININE 1.69 mg/dL (0.60-1.30); POTASSIUM 5.2 mmol/L (3.5-5.1); TOTAL PROTEIN, SERUM 9.9 g/dL (6.4-8.2)
[2021-07-23 08:18] VITALS: BP 158/57
[2021-07-23] MEDS: QUEtiapine FUMARATE 200 MG TABLET PO SCH ×2 (08:38→20:24)
[2021-07-23] MEDS: RIFAXIMIN 550 MG TABLET PO SCH ×2 (08:38→20:24)
[2021-07-23] MEDS: PANTOPRAZOLE SODIUM 40 MG/VIAL IVP SCH ×2 (08:39→20:25)
[2021-07-23] MEDS: VALPROIC ACID 250 MG/5 ML SOLUTION UDCUP NG SCH ×2 (08:39→20:24)
[2021-07-23 12:52] LABS: GLUCOMETER DEV NAME(LOC) 6S.1; GLUCOSE,POINT OF CARE 176 MG/DL (70-110)
[2021-07-23 19:14] VITALS: BP 154/68
[2021-07-23 20:02] LABS: GLUCOMETER DEV NAME(LOC) 6S.1; GLUCOSE,POINT OF CARE 202 MG/DL (70-110)
[2021-07-23] MEDS: OLANZapine 5 MG TABLET PO PRN (20:24)
[2021-07-23 23:32] VITALS: BP 145/71
[2021-07-23 23:44] LABS: GLUCOMETER DEV NAME(LOC) 6N.1; GLUCOSE,POINT OF CARE 160 MG/DL (70-110)
[2021-07-24] MEDS: INSULIN REGULAR, HUMAN 100 UNITS/ML SQ PRN ×4 (04:26→21:28)
[2021-07-24 04:28] VITALS: BP 140/80
[2021-07-24 06:33] LABS: BASOPHILS % (AUTO) 0.2 % (0.0-2.0); EOSINOPHILS % (AUTO) 1.9 % (1.0-6.0); HEMATOCRIT 25.9 % (36-46); HEMOGLOBIN 8.8 g/dL (12.0-16.0); LYMPHOCYTES % (AUTO) 18.1 % (22.0-44.0); MEAN CORPUSCULAR HEMOGLOBIN 28.4 pg (26.0-34.0); MEAN CORPUSCULAR VOLUME 84 fL (80-100); MONOCYTES # (AUTO) 1.6 K/uL (0.1-1.0); MONOCYTES % (AUTO) 14.4 % (2.0-9.0); NEUTROPHILS # (AUTO) 7.2 K/uL (1.8-7.7); NEUTROPHILS % (AUTO) 65.4 % (40.0-70.0); PLATELET COUNT (AUTO) 137 K/uL (150-450); RED CELL DISTRIBUTION WIDTH 21.8 % (11.5-14.5)
[2021-07-24 06:44] LABS: GLUCOMETER DEV NAME(LOC) 6N.1; GLUCOSE,POINT OF CARE 139 MG/DL (70-110)
[2021-07-24 06:57] LABS: ALBUMIN 1.5 g/dL (3.4-5.0); BILIRUBIN,TOTAL 0.4 mg/dL (0.1-1.0); CALCIUM, TOTAL 8.7 mg/dL (8.8-10.5); CREATININE 1.55 mg/dL (0.60-1.30); POTASSIUM 5.1 mmol/L (3.5-5.1); TOTAL PROTEIN, SERUM 9.7 g/dL (6.4-8.2)
[2021-07-24 08:03] VITALS: BP 136/65
[2021-07-24] MEDS: RIFAXIMIN 550 MG TABLET PO SCH ×2 (08:36→21:28)
[2021-07-24] MEDS: QUEtiapine FUMARATE 200 MG TABLET PO SCH ×2 (08:36→21:27)
[2021-07-24] MEDS: VALPROIC ACID 250 MG/5 ML SOLUTION UDCUP NG SCH ×2 (08:36→21:27)
[2021-07-24] MEDS: PANTOPRAZOLE SODIUM 40 MG/VIAL IVP SCH ×2 (08:37→21:00)
[2021-07-24] MEDS: MORPHINE SULFATE 2 MG/ML SYRINGE IVP PRN ×2 (09:03→12:50)
[2021-07-24 15:43] VITALS: BP 133/74
[2021-07-24 15:45] LABS: GLUCOMETER DEV NAME(LOC) 6N.1; GLUCOSE,POINT OF CARE 220 MG/DL (70-110)
[2021-07-24 19:22] VITALS: BP 160/75
[2021-07-24 22:35] LABS: GLUCOMETER DEV NAME(LOC) 6N.1; GLUCOSE,POINT OF CARE 147 MG/DL (70-110)
[2021-07-24 22:35] LABS: GLUCOMETER DEV NAME(LOC) 6N.1; GLUCOSE,POINT OF CARE 147 MG/DL (70-110)
[2021-07-25 04:59] VITALS: BP 175/73
[2021-07-25] MEDS: INSULIN REGULAR, HUMAN 100 UNITS/ML SQ PRN ×3 (05:10→17:42)
[2021-07-25] MEDS: MORPHINE SULFATE 2 MG/ML SYRINGE IVP PRN ×2 (05:11→08:56)
[2021-07-25 06:01] LABS: GLUCOMETER DEV NAME(LOC) 6N.1; GLUCOSE,POINT OF CARE 181 MG/DL (70-110)
[2021-07-25 08:09] LABS: BASOPHILS % (AUTO) 0.5 % (0.0-2.0); EOSINOPHILS % (AUTO) 1.4 % (1.0-6.0); HEMATOCRIT 26.7 % (36-46); HEMOGLOBIN 9.1 g/dL (12.0-16.0); LYMPHOCYTES # (AUTO) 1.9 K/uL (1.0-4.8); LYMPHOCYTES % (AUTO) 20.3 % (22.0-44.0); MEAN CORPUSCULAR HEMOGLOBIN 28.6 pg (26.0-34.0); MEAN CORPUSCULAR HGB CONC 34.1 G/dL (31.0-37.0); MEAN CORPUSCULAR VOLUME 84 fL (80-100); MONOCYTES % (AUTO) 10.8 % (2.0-9.0); NEUTROPHILS # (AUTO) 6.2 K/uL (1.8-7.7); PLATELET COUNT (AUTO) 128 K/uL (150-450); RED BLOOD CELL COUNT(AUTO) 3.18 MIL/uL (4.00-5.20); RED CELL DISTRIBUTION WIDTH 21.3 % (11.5-14.5)
[2021-07-25] MEDS: PANTOPRAZOLE SODIUM 40 MG/VIAL IVP SCH ×2 (08:20→21:12)
[2021-07-25] MEDS: VALPROIC ACID 250 MG/5 ML SOLUTION UDCUP NG SCH ×2 (08:20→21:12)
[2021-07-25] MEDS: QUEtiapine FUMARATE 200 MG TABLET PO SCH ×2 (08:20→21:11)
[2021-07-25] MEDS: RIFAXIMIN 550 MG TABLET PO SCH ×2 (08:21→21:11)
[2021-07-25 08:26] LABS: ALBUMIN 1.6 g/dL (3.4-5.0); BILIRUBIN,TOTAL 0.4 mg/dL (0.1-1.0); CALCIUM, TOTAL 8.9 mg/dL (8.8-10.5); CREATININE 1.55 mg/dL (0.60-1.30); POTASSIUM 4.8 mmol/L (3.5-5.1); TOTAL PROTEIN, SERUM 10.3 g/dL (6.4-8.2)
[2021-07-25 08:27] VITALS: BP 168/66
[2021-07-25 10:34] VITALS: BP 148/66
[2021-07-25 13:11] LABS: GLUCOMETER DEV NAME(LOC) 6S.1; GLUCOSE,POINT OF CARE 196 MG/DL (70-110)
[2021-07-25 15:47] VITALS: BP 165/97
[2021-07-25] MEDS: AmLODIPine BESYLATE 10 MG TABLET PO SCH (17:38)
[2021-07-25 19:30] VITALS: BP 155/75
[2021-07-25 23:45] VITALS: BP 136/66
[2021-07-26] MEDS: INSULIN REGULAR, HUMAN 100 UNITS/ML SQ PRN ×4 (00:39→17:30)
[2021-07-26 00:57] LABS: GLUCOMETER DEV NAME(LOC) 6S.1; GLUCOSE,POINT OF CARE 173 MG/DL (70-110)
[2021-07-26] MEDS: MORPHINE SULFATE 2 MG/ML SYRINGE IVP PRN ×3 (02:49→18:45)
[2021-07-26 05:15] VITALS: BP 146/78
[2021-07-26 06:32] LABS: GLUCOMETER DEV NAME(LOC) 6S.1; GLUCOSE,POINT OF CARE 149 MG/DL (70-110)
[2021-07-26 07:24] LABS: GLUCOMETER DEV NAME(LOC) 6N.1; GLUCOSE,POINT OF CARE 150 MG/DL (70-110)
[2021-07-26] MEDS: RIFAXIMIN 550 MG TABLET PO SCH ×2 (07:51→21:15)
[2021-07-26] MEDS: AmLODIPine BESYLATE 10 MG TABLET PO SCH (07:51)
[2021-07-26] MEDS: QUEtiapine FUMARATE 200 MG TABLET PO SCH ×2 (07:51→21:15)
[2021-07-26] MEDS: PANTOPRAZOLE SODIUM 40 MG/VIAL IVP SCH ×2 (07:51→21:16)
[2021-07-26] MEDS: VALPROIC ACID 250 MG/5 ML SOLUTION UDCUP NG SCH ×2 (07:52→21:14)
[2021-07-26 08:00] VITALS: BP 149/81
[2021-07-26 08:18] LABS: BASOPHILS % (AUTO) 0.3 % (0.0-2.0); EOSINOPHILS % (AUTO) 1.4 % (1.0-6.0); HEMATOCRIT 24.1 % (36-46); HEMOGLOBIN 8.2 g/dL (12.0-16.0); LYMPHOCYTES # (AUTO) 1.9 K/uL (1.0-4.8); MEAN CORPUSCULAR HEMOGLOBIN 28.6 pg (26.0-34.0); MEAN CORPUSCULAR HGB CONC 34.1 G/dL (31.0-37.0); MEAN CORPUSCULAR VOLUME 84 fL (80-100); MONOCYTES # (AUTO) 1.1 K/uL (0.1-1.0); MONOCYTES % (AUTO) 11.4 % (2.0-9.0); NEUTROPHILS # (AUTO) 6.3 K/uL (1.8-7.7); NEUTROPHILS % (AUTO) 66.9 % (40.0-70.0); PLATELET COUNT (AUTO) 116 K/uL (150-450); RED BLOOD CELL COUNT(AUTO) 2.88 MIL/uL (4.00-5.20); RED CELL DISTRIBUTION WIDTH 21.6 % (11.5-14.5)
[2021-07-26 08:37] LABS: ALBUMIN 1.6 g/dL (3.4-5.0); BILIRUBIN,TOTAL 0.4 mg/dL (0.1-1.0); CALCIUM, TOTAL 9.1 mg/dL (8.8-10.5); CREATININE 1.45 mg/dL (0.60-1.30); POTASSIUM 4.6 mmol/L (3.5-5.1); TOTAL PROTEIN, SERUM 9.9 g/dL (6.4-8.2)
[2021-07-26] MEDS: DEXTROSE 5%-WATER 1,000 ML IV SCH (14:47)
[2021-07-26 16:19] VITALS: BP 139/78
[2021-07-26 17:36] LABS: GLUCOMETER DEV NAME(LOC) 6S.1; GLUCOSE,POINT OF CARE 163 MG/DL (70-110)
[2021-07-26 19:59] LABS: GLUCOMETER DEV NAME(LOC) 6N.1; GLUCOSE,POINT OF CARE 202 MG/DL (70-110)
[2021-07-26 20:00] VITALS: BP 143/91
[2021-07-27 00:05] VITALS: BP 120/54
[2021-07-27 00:35] LABS: GLUCOMETER DEV NAME(LOC) 6S.1; GLUCOSE,POINT OF CARE 157 MG/DL (70-110)
[2021-07-27 04:00] VITALS: BP 142/69
[2021-07-27] MEDS: DEXTROSE 5%-WATER 1,000 ML IV SCH (04:50)
[2021-07-27 06:23] LABS: BASOPHILS % (AUTO) 0.2 % (0.0-2.0); EOSINOPHILS % (AUTO) 4.5 % (1.0-6.0); HEMATOCRIT 23.2 % (36-46); HEMOGLOBIN 7.9 g/dL (12.0-16.0); LYMPHOCYTES # (AUTO) 2.1 K/uL (1.0-4.8); LYMPHOCYTES % (AUTO) 24.9 % (22.0-44.0); MEAN CORPUSCULAR HEMOGLOBIN 28.9 pg (26.0-34.0); MEAN CORPUSCULAR HGB CONC 33.9 G/dL (31.0-37.0); MEAN CORPUSCULAR VOLUME 85 fL (80-100); MONOCYTES # (AUTO) 0.8 K/uL (0.1-1.0); MONOCYTES % (AUTO) 9.3 % (2.0-9.0); NEUTROPHILS % (AUTO) 61.1 % (40.0-70.0); PLATELET COUNT (AUTO) 108 K/uL (150-450); RED BLOOD CELL COUNT(AUTO) 2.73 MIL/uL (4.00-5.20)
[2021-07-27 06:45] LABS: ALBUMIN 1.4 g/dL (3.4-5.0); BILIRUBIN,TOTAL 0.3 mg/dL (0.1-1.0); CALCIUM, TOTAL 8.4 mg/dL (8.8-10.5); CREATININE 1.43 mg/dL (0.60-1.30); POTASSIUM 5.2 mmol/L (3.5-5.1); TOTAL PROTEIN, SERUM 9.1 g/dL (6.4-8.2)
[2021-07-27 07:38] VITALS: BP 140/78
[2021-07-27] MEDS: PANTOPRAZOLE SODIUM 40 MG/VIAL IVP SCH ×2 (09:03→22:10)
[2021-07-27] MEDS: QUEtiapine FUMARATE 200 MG TABLET PO SCH ×2 (09:03→22:10)
[2021-07-27] MEDS: AmLODIPine BESYLATE 10 MG TABLET PO SCH (09:03)
[2021-07-27] MEDS: VALPROIC ACID 250 MG/5 ML SOLUTION UDCUP NG SCH ×2 (09:03→22:13)
[2021-07-27] MEDS: RIFAXIMIN 550 MG TABLET PO SCH ×2 (09:03→22:10)
[2021-07-27 13:43] LABS: GLUCOMETER DEV NAME(LOC) 6N.1; GLUCOSE,POINT OF CARE 129 MG/DL (70-110)
[2021-07-27 15:06] VITALS: BP 138/72
[2021-07-27] MEDS: LACTULOSE 20 GM/30 ML SOLUTION UDCUP PO SCH ×2 (15:16→22:13)
[2021-07-27] MEDS: INSULIN REGULAR, HUMAN 100 UNITS/ML SQ PRN ×3 (17:33→22:23)
[2021-07-27 18:10] LABS: GLUCOMETER DEV NAME(LOC) 6N.1; GLUCOSE,POINT OF CARE 161 MG/DL (70-110)
[2021-07-27 20:45] VITALS: BP 141/82
[2021-07-27] MEDS: MORPHINE SULFATE 2 MG/ML SYRINGE IVP PRN (22:11)
[2021-07-27 23:48] LABS: GLUCOMETER DEV NAME(LOC) 6S.1; GLUCOSE,POINT OF CARE 153 MG/DL (70-110)
[2021-07-28 04:00] VITALS: BP 148/59
[2021-07-28] MEDS: INSULIN REGULAR, HUMAN 100 UNITS/ML SQ PRN ×3 (05:41→17:35)
[2021-07-28 05:51] LABS: GLUCOMETER DEV NAME(LOC) 6N.1; GLUCOSE,POINT OF CARE 151 MG/DL (70-110)
[2021-07-28 08:06] LABS: BASOPHILS % (AUTO) 0.2 % (0.0-2.0); EOSINOPHILS % (AUTO) 2.2 % (1.0-6.0); HEMATOCRIT 24.2 % (36-46); HEMOGLOBIN 8.3 g/dL (12.0-16.0); LYMPHOCYTES # (AUTO) 1.6 K/uL (1.0-4.8); LYMPHOCYTES % (AUTO) 22.3 % (22.0-44.0); MEAN CORPUSCULAR HEMOGLOBIN 28.7 pg (26.0-34.0); MEAN CORPUSCULAR HGB CONC 34.2 G/dL (31.0-37.0); MEAN CORPUSCULAR VOLUME 84 fL (80-100); MONOCYTES # (AUTO) 0.7 K/uL (0.1-1.0); MONOCYTES % (AUTO) 10.3 % (2.0-9.0); NEUTROPHILS # (AUTO) 4.7 K/uL (1.8-7.7); PLATELET COUNT (AUTO) 102 K/uL (150-450); RED BLOOD CELL COUNT(AUTO) 2.88 MIL/uL (4.00-5.20); RED CELL DISTRIBUTION WIDTH 21.8 % (11.5-14.5)
[2021-07-28 08:16] VITALS: BP 169/94
[2021-07-28 08:23] LABS: ALBUMIN 1.5 g/dL (3.4-5.0); BILIRUBIN,TOTAL 0.4 mg/dL (0.1-1.0); CALCIUM, TOTAL 8.2 mg/dL (8.8-10.5); CREATININE 1.47 mg/dL (0.60-1.30); POTASSIUM 4.8 mmol/L (3.5-5.1); TOTAL PROTEIN, SERUM 9.7 g/dL (6.4-8.2)
[2021-07-28] MEDS: VALPROIC ACID 250 MG/5 ML SOLUTION UDCUP NG SCH (09:35)
[2021-07-28] MEDS: QUEtiapine FUMARATE 200 MG TABLET PO SCH (09:35)
[2021-07-28] MEDS: AmLODIPine BESYLATE 10 MG TABLET PO SCH (09:35)
[2021-07-28] MEDS: LACTULOSE 20 GM/30 ML SOLUTION UDCUP PO SCH ×3 (09:35→20:52)
[2021-07-28] MEDS: RIFAXIMIN 550 MG TABLET PO SCH ×2 (09:35→20:52)
[2021-07-28] MEDS: PANTOPRAZOLE SODIUM 40 MG/VIAL IVP SCH ×2 (09:36→20:53)
[2021-07-28 15:35] VITALS: BP 126/83
[2021-07-28 18:49] LABS: GLUCOMETER DEV NAME(LOC) 6N.1; GLUCOSE,POINT OF CARE 155 MG/DL (70-110)
[2021-07-28 18:50] LABS: GLUCOMETER DEV NAME(LOC) 6N.1; GLUCOSE,POINT OF CARE 149 MG/DL (70-110)
[2021-07-28 19:08] VITALS: BP 134/87
[2021-07-28] MEDS: LORazepam 2 MG/ML VIAL IVP PRN (23:21)
[2021-07-29 04:07] VITALS: BP 140/82
[2021-07-29 05:18] LABS: GLUCOMETER DEV NAME(LOC) 6S.1; GLUCOSE,POINT OF CARE 141 MG/DL (70-110)
[2021-07-29 06:18] LABS: BASOPHILS % (AUTO) 0.4 % (0.0-2.0); EOSINOPHILS % (AUTO) 0.4 % (1.0-6.0); HEMATOCRIT 25.2 % (36-46); HEMOGLOBIN 8.5 g/dL (12.0-16.0); LYMPHOCYTES # (AUTO) 1.7 K/uL (1.0-4.8); LYMPHOCYTES % (AUTO) 20.8 % (22.0-44.0); MEAN CORPUSCULAR HEMOGLOBIN 28.5 pg (26.0-34.0); MEAN CORPUSCULAR HGB CONC 33.8 G/dL (31.0-37.0); MEAN CORPUSCULAR VOLUME 84 fL (80-100); NEUTROPHILS # (AUTO) 5.5 K/uL (1.8-7.7); NEUTROPHILS % (AUTO) 66.4 % (40.0-70.0); PLATELET COUNT (AUTO) 122 K/uL (150-450); RED CELL DISTRIBUTION WIDTH 21.7 % (11.5-14.5)
[2021-07-29 06:28] LABS: GLUCOMETER DEV NAME(LOC) 6N.1; GLUCOSE,POINT OF CARE 96 MG/DL (70-110)
[2021-07-29 06:47] LABS: ALBUMIN 1.7 g/dL (3.4-5.0); BILIRUBIN,TOTAL 0.6 mg/dL (0.1-1.0); CALCIUM, TOTAL 8.6 mg/dL (8.8-10.5); CREATININE 1.57 mg/dL (0.60-1.30); POTASSIUM 4.6 mmol/L (3.5-5.1); TOTAL PROTEIN, SERUM 10.6 g/dL (6.4-8.2)
[2021-07-29 07:24] VITALS: BP 142/87
[2021-07-29] MEDS: LACTULOSE 20 GM/30 ML SOLUTION UDCUP PO SCH ×3 (08:00→19:49)
[2021-07-29] MEDS: PANTOPRAZOLE SODIUM 40 MG/VIAL IVP SCH ×2 (08:00→19:49)
[2021-07-29] MEDS: RIFAXIMIN 550 MG TABLET PO SCH ×2 (08:00→19:49)
[2021-07-29] MEDS: AmLODIPine BESYLATE 10 MG TABLET PO SCH (08:00)
[2021-07-29] MEDS: INSULIN REGULAR, HUMAN 100 UNITS/ML SQ PRN ×2 (12:07→16:47)
[2021-07-29 14:43] LABS: GLUCOMETER DEV NAME(LOC) 6N.1; GLUCOSE,POINT OF CARE 219 MG/DL (70-110)
[2021-07-29 16:10] VITALS: BP 134/86
[2021-07-29 16:54] LABS: GLUCOMETER DEV NAME(LOC) 6N.1; GLUCOSE,POINT OF CARE 146 MG/DL (70-110)
[2021-07-29] MEDS: LORazepam 2 MG/ML VIAL IVP PRN (19:49)
[2021-07-29 20:12] VITALS: BP 148/77
[2021-07-30] MEDS: INSULIN REGULAR, HUMAN 100 UNITS/ML SQ PRN ×2 (00:39→18:42)
[2021-07-30 04:41] LABS: GLUCOMETER DEV NAME(LOC) 6S.1; GLUCOSE,POINT OF CARE 201 MG/DL (70-110)
[2021-07-30 05:29] VITALS: BP 159/55
[2021-07-30 07:20] VITALS: BP 146/66
[2021-07-30] MEDS ORDERED: SODIUM CHLORIDE 0.9% 1,000 ML ONE (07:54)
[2021-07-30] MEDS ORDERED: SODIUM CHLORIDE 0.9% 1,000 ML IV ONE (08:30)
[2021-07-30] MEDS: LACTULOSE 20 GM/30 ML SOLUTION UDCUP PO SCH ×3 (10:53→21:40)
[2021-07-30] MEDS: AmLODIPine BESYLATE 10 MG TABLET PO SCH (10:53)
[2021-07-30] MEDS: PANTOPRAZOLE SODIUM 40 MG/VIAL IVP SCH ×2 (10:53→21:18)
[2021-07-30] MEDS: RIFAXIMIN 550 MG TABLET PO SCH ×2 (10:53→21:40)
[2021-07-30] MEDS ORDERED: PROPOFOL 1% 20 ML VIAL IVP ONE (12:00)
[2021-07-30 14:29] LABS: GLUCOMETER DEV NAME(LOC) 6S.1; GLUCOSE,POINT OF CARE 164 MG/DL (70-110)
[2021-07-30 15:34] LABS: COVID AG,FIA SOURCE NASAL SWAB
[2021-07-30 15:39] VITALS: BP 164/59
[2021-07-30] MEDS ORDERED: *CLINICAL-LEVOFLOXACIN IVPB DOSING CLINICAL ONE (18:30)
[2021-07-30 18:38] LABS: APPEARANCE,URINE CLEAR (CLEAR); BILIRUBIN,URINE NEGATIVE (NEGATIVE); GLUCOSE, URINE (UA) NEGATIVE (NEGATIVE); KETONES,URINE TRACE mg/dL (NEGATIVE); LEUKOCYTE ESTERASE ,URINE NEGATIVE (NEGATIVE); NITRATE,URINE NEGATIVE (NEGATIVE); OCCULT BLOOD,URINE MODERATE (NEGATIVE); PROTEIN,URINE SEE CONFIRM (NEGATIVE); UROBILINOGEN,URINE 0.2 mg/dL (<=1.0)
[2021-07-30 19:17] VITALS: BP 133/52
[2021-07-30 19:29] LABS: BACTERIA,URINE None Seen /HPF (None Seen); RBC,URINE 0-2 /HPF (0-2); WBC,URINE 0-2 /HPF (0-5)
[2021-07-30 19:30] LABS: SULFOSALICYLIC ACID,URINE 1+ (Negative)
[2021-07-30] MEDS ORDERED: LEVOFLOXACIN 750 MG/D5% WATER 150 ML IV ONE (20:00)
[2021-07-30 20:09] LABS: GLUCOMETER DEV NAME(LOC) 6S.1; GLUCOSE,POINT OF CARE 238 MG/DL (70-110)
[2021-07-30] MEDS ORDERED: VANCOMYCIN HCL 500 MG in DEXTROSE 5%-WATER 100 ML IV ONE (21:00)
[2021-07-30] MEDS: ACETAMINOPHEN 650 MG/20.3 ML SOLUTION UDCUP PEG PRN (21:39)
[2021-07-30 22:07] LABS: GLUCOMETER DEV NAME(LOC) 6S.1; GLUCOSE,POINT OF CARE 135 MG/DL (70-110)
[2021-07-30] MEDS: LORazepam 2 MG/ML VIAL IVP PRN (23:09)
[2021-07-30 23:25] VITALS: BP 123/70
[2021-07-31 00:25] VITALS: BP 165/55
[2021-07-31 03:59] VITALS: BP 127/96
[2021-07-31] MEDS: LORazepam 2 MG/ML VIAL IVP PRN ×3 (04:49→14:50)
[2021-07-31] MEDS: INSULIN REGULAR, HUMAN 100 UNITS/ML SQ PRN ×4 (05:18→22:05)
[2021-07-31 05:36] LABS: GLUCOMETER DEV NAME(LOC) 6N.1; GLUCOSE,POINT OF CARE 227 MG/DL (70-110)
[2021-07-31 07:08] LABS: CALCIUM, TOTAL 8.8 mg/dL (8.8-10.5); CREATININE 1.69 mg/dL (0.60-1.30)
[2021-07-31 07:44] VITALS: BP 128/86
[2021-07-31] MEDS ORDERED: SODIUM CHLORIDE 0.9% 250 ML IV ONE (08:32)
[2021-07-31] MEDS: RIFAXIMIN 550 MG TABLET PO SCH ×2 (09:40→21:47)
[2021-07-31] MEDS: PANTOPRAZOLE SODIUM 40 MG/VIAL IVP SCH ×2 (09:40→21:47)
[2021-07-31] MEDS: LACTULOSE 20 GM/30 ML SOLUTION UDCUP PO SCH ×3 (09:40→21:46)
[2021-07-31] MEDS: AmLODIPine BESYLATE 10 MG TABLET PO SCH (09:40)
[2021-07-31] MEDS: VANCOMYCIN HCL 750 MG in DEXTROSE 5%-WATER 250 ML IV SCH (09:41)
[2021-07-31 15:21] VITALS: BP 138/82
[2021-07-31 17:58] LABS: GLUCOMETER DEV NAME(LOC) 6N.1; GLUCOSE,POINT OF CARE 245 MG/DL (70-110)
[2021-07-31 20:23] LABS: GLUCOMETER DEV NAME(LOC) 6S.1; GLUCOSE,POINT OF CARE 221 MG/DL (70-110)
[2021-07-31 20:39] VITALS: BP 153/66
[2021-07-31] MEDS: ACETAMINOPHEN 650 MG/20.3 ML SOLUTION UDCUP PEG PRN (21:46)
[2021-07-31] MEDS: ETHYL ALCOHOL 62% ANTISEPTIC NASAL INHALANT 0.6 ML AMPUL NASAL SCH (21:47)
[2021-08-01 00:14] VITALS: BP 132/72
[2021-08-01] MEDS: LORazepam 2 MG/ML VIAL IVP PRN ×3 (02:24→15:43)
[2021-08-01] MEDS: ACETAMINOPHEN 650 MG/20.3 ML SOLUTION UDCUP PEG PRN ×2 (04:32→12:54)
[2021-08-01 05:02] VITALS: BP 151/60
[2021-08-01 05:21] LABS: GLUCOMETER DEV NAME(LOC) 6S.1; GLUCOSE,POINT OF CARE 172 MG/DL (70-110)
[2021-08-01] MEDS: INSULIN REGULAR, HUMAN 100 UNITS/ML SQ PRN ×4 (06:49→20:44)
[2021-08-01 07:23] LABS: HEMATOCRIT 21.5 % (36-46); HEMOGLOBIN 7.1 g/dL (12.0-16.0); MEAN CORPUSCULAR HEMOGLOBIN 28.3 pg (26.0-34.0); MEAN CORPUSCULAR VOLUME 86 fL (80-100); PLATELET COUNT (AUTO) 138 K/uL (150-450); RED BLOOD CELL COUNT(AUTO) 2.51 MIL/uL (4.00-5.20); RED CELL DISTRIBUTION WIDTH 22.1 % (11.5-14.5)
[2021-08-01 07:43] LABS: CALCIUM, TOTAL 8.5 mg/dL (8.8-10.5); CREATININE 1.63 mg/dL (0.60-1.30); POTASSIUM 3.9 mmol/L (3.5-5.1)
[2021-08-01 08:29] LABS: GLUCOMETER DEV NAME(LOC) 6S.1; GLUCOSE,POINT OF CARE 225 MG/DL (70-110)
[2021-08-01 08:34] VITALS: BP 148/98
[2021-08-01 08:59] LABS: BAND NEUTROPHILS % (MANUAL) 1 % (0-5); LYMPHOCYTES % (MANUAL) 13 % (22-44); MONOCYTES % (MANUAL) 4 % (2-9); SEGMENTED NEUTROPHILS % 82 % (40-70)
[2021-08-01] MEDS: LACTULOSE 20 GM/30 ML SOLUTION UDCUP PO SCH (09:00)
[2021-08-01] MEDS: ETHYL ALCOHOL 62% ANTISEPTIC NASAL INHALANT 0.6 ML AMPUL NASAL SCH ×2 (09:01→20:12)
[2021-08-01] MEDS: PANTOPRAZOLE SODIUM 40 MG/VIAL IVP SCH ×2 (09:02→20:12)
[2021-08-01] MEDS: RIFAXIMIN 550 MG TABLET PO SCH ×2 (09:02→20:11)
[2021-08-01] MEDS: AmLODIPine BESYLATE 10 MG TABLET PO SCH (09:02)
[2021-08-01] MEDS: VANCOMYCIN HCL 750 MG in DEXTROSE 5%-WATER 250 ML IV SCH (09:03)
[2021-08-01] MEDS: DEXTROSE 5%-WATER 1,000 ML IV SCH (11:16)
[2021-08-01 13:35] LABS: GLUCOMETER DEV NAME(LOC) 6N.1; GLUCOSE,POINT OF CARE 208 MG/DL (70-110)
[2021-08-01 15:51] VITALS: BP 156/88
[2021-08-01] MEDS: LEVOFLOXACIN 750 MG/D5% WATER 150 ML IV SCH (17:44)
[2021-08-01 19:11] LABS: GLUCOMETER DEV NAME(LOC) 6S.1; GLUCOSE,POINT OF CARE 264 MG/DL (70-110)
[2021-08-01 20:00] VITALS: BP 142/52
[2021-08-01] MEDS: DIVALPROEX SODIUM 125 MG DR CAPSULE PEG SCH (20:12)
[2021-08-01] MEDS: QUEtiapine FUMARATE 25 MG TABLET PEG SCH (20:12)
[2021-08-01 20:36] LABS: GLUCOMETER DEV NAME(LOC) 6S.1; GLUCOSE,POINT OF CARE 158 MG/DL (70-110)
[2021-08-02] VITALS (11 sets, daily range): BP systolic 98–129; BP diastolic 50–73
[2021-08-02] MEDS: ACETAMINOPHEN 650 MG/20.3 ML SOLUTION UDCUP PEG PRN ×2 (01:12→14:58)
[2021-08-02] MEDS: DEXTROSE 5%-WATER 1,000 ML IV SCH ×2 (01:39→13:29)
[2021-08-02] MEDS: INSULIN REGULAR, HUMAN 100 UNITS/ML SQ PRN ×3 (05:55→21:26)
[2021-08-02 07:30] LABS: CALCIUM, TOTAL 7.8 mg/dL (8.8-10.5); CREATININE 1.48 mg/dL (0.60-1.30); POTASSIUM 4.2 mmol/L (3.5-5.1); VANCOMYCIN,RANDOM 18.8 mcg/mL (25.0-50.0)
[2021-08-02] MEDS: VANCOMYCIN HCL 750 MG in DEXTROSE 5%-WATER 250 ML IV SCH (08:15)
[2021-08-02] MEDS: DIVALPROEX SODIUM 125 MG DR CAPSULE PEG SCH ×2 (08:15→20:47)
[2021-08-02] MEDS: PANTOPRAZOLE SODIUM 40 MG/VIAL IVP SCH ×2 (08:15→20:46)
[2021-08-02] MEDS: RIFAXIMIN 550 MG TABLET PO SCH ×2 (08:15→20:47)
[2021-08-02] MEDS: ETHYL ALCOHOL 62% ANTISEPTIC NASAL INHALANT 0.6 ML AMPUL NASAL SCH ×2 (08:15→20:48)
[2021-08-02] MEDS: AmLODIPine BESYLATE 10 MG TABLET PO SCH (08:15)
[2021-08-02] MEDS: QUEtiapine FUMARATE 25 MG TABLET PEG SCH ×2 (08:16→20:46)
[2021-08-02] MEDS: MULTIVITAMINS, THERAPEUTIC 15 ML UDCUP PEG SCH (08:19)
[2021-08-02 11:04] LABS: HEMATOCRIT 21.1 % (36-46); MEAN CORPUSCULAR HEMOGLOBIN 28.8 pg (26.0-34.0); MEAN CORPUSCULAR HGB CONC 33.4 G/dL (31.0-37.0); MEAN CORPUSCULAR VOLUME 86 fL (80-100); PLATELET COUNT (AUTO) 137 K/uL (150-450); RED BLOOD CELL COUNT(AUTO) 2.45 MIL/uL (4.00-5.20); RED CELL DISTRIBUTION WIDTH 22.6 % (11.5-14.5)
[2021-08-02 11:13] LABS: BAND NEUTROPHILS % (MANUAL) 4 % (0-5); LYMPHOCYTES % (MANUAL) 19 % (22-44); MONOCYTES % (MANUAL) 7 % (2-9); SEGMENTED NEUTROPHILS % 70 % (40-70)
[2021-08-02 13:34] LABS: GLUCOMETER DEV NAME(LOC) 6N.1; GLUCOSE,POINT OF CARE 172 MG/DL (70-110)
[2021-08-02 13:34] LABS: GLUCOMETER DEV NAME(LOC) 6N.1; GLUCOSE,POINT OF CARE 226 MG/DL (70-110)
[2021-08-02 13:40] LABS: CALCIUM, TOTAL 7.8 mg/dL (8.8-10.5); CREATININE 1.42 mg/dL (0.60-1.30); POTASSIUM 4.8 mmol/L (3.5-5.1)
[2021-08-02] MEDS ORDERED: SODIUM CHLORIDE 0.9% 500 ML IV ONE (14:28)
[2021-08-02 23:05] LABS: GLUCOMETER DEV NAME(LOC) 6S.1; GLUCOSE,POINT OF CARE 153 MG/DL (70-110)
[2021-08-02 23:05] LABS: GLUCOMETER DEV NAME(LOC) 6S.1; GLUCOSE,POINT OF CARE 122 MG/DL (70-110)
[2021-08-03] MEDS ORDERED: AMLO-258 PO (01:30)
[2021-08-03] MEDS ORDERED: DIVA125C20 PEG (01:33)
[2021-08-03] MEDS ORDERED: LEVO750P7 IV (01:35)
[2021-08-03] MEDS ORDERED: MULT-1077 PEG (01:39)
[2021-08-03] MEDS ORDERED: QUET25TA PEG (01:40)
[2021-08-03] MEDS ORDERED: RIFAX550 PEG (01:41)
[2021-08-03] MEDS ORDERED: VANC250C13 PO (01:44)
[2021-08-03] MEDS ORDERED: ACET-2247 PEG (01:54)
[2021-08-03 04:45] VITALS: BP 139/76
[2021-08-03] MEDS: ACETAMINOPHEN 650 MG/20.3 ML SOLUTION UDCUP PEG PRN ×2 (05:01→18:16)
[2021-08-03] MEDS: INSULIN REGULAR, HUMAN 100 UNITS/ML SQ PRN ×3 (05:09→17:07)
[2021-08-03 06:27] LABS: GLUCOMETER DEV NAME(LOC) 6N.1; GLUCOSE,POINT OF CARE 154 MG/DL (70-110)
[2021-08-03 07:37] LABS: BASOPHILS % (AUTO) 0.3 % (0.0-2.0); EOSINOPHILS % (AUTO) 6.7 % (1.0-6.0); HEMATOCRIT 27.7 % (36-46); HEMOGLOBIN 9.5 g/dL (12.0-16.0); LYMPHOCYTES # (AUTO) 1.4 K/uL (1.0-4.8); LYMPHOCYTES % (AUTO) 18.6 % (22.0-44.0); MEAN CORPUSCULAR HEMOGLOBIN 30.2 pg (26.0-34.0); MEAN CORPUSCULAR HGB CONC 34.5 G/dL (31.0-37.0); MEAN CORPUSCULAR VOLUME 88 fL (80-100); MONOCYTES # (AUTO) 0.7 K/uL (0.1-1.0); MONOCYTES % (AUTO) 9.8 % (2.0-9.0); NEUTROPHILS # (AUTO) 4.8 K/uL (1.8-7.7); NEUTROPHILS % (AUTO) 64.6 % (40.0-70.0); PLATELET COUNT (AUTO) 152 K/uL (150-450); RED BLOOD CELL COUNT(AUTO) 3.16 MIL/uL (4.00-5.20); RED CELL DISTRIBUTION WIDTH 20.6 % (11.5-14.5)
[2021-08-03 07:47] LABS: ALBUMIN 1.4 g/dL (3.4-5.0); BILIRUBIN,TOTAL 0.5 mg/dL (0.1-1.0); CALCIUM, TOTAL 7.9 mg/dL (8.8-10.5); CREATININE 1.36 mg/dL (0.60-1.30); POTASSIUM 4.2 mmol/L (3.5-5.1); TOTAL PROTEIN, SERUM 8.8 g/dL (6.4-8.2)
[2021-08-03 07:53] VITALS: BP 121/72
[2021-08-03] MEDS: VANCOMYCIN HCL 750 MG in DEXTROSE 5%-WATER 250 ML IV SCH (07:58)
[2021-08-03] MEDS: ETHYL ALCOHOL 62% ANTISEPTIC NASAL INHALANT 0.6 ML AMPUL NASAL SCH ×2 (09:01→20:33)
[2021-08-03] MEDS: PANTOPRAZOLE SODIUM 40 MG/VIAL IVP SCH ×2 (09:01→20:34)
[2021-08-03] MEDS: DIVALPROEX SODIUM 125 MG DR CAPSULE PEG SCH ×2 (09:01→20:33)
[2021-08-03] MEDS: RIFAXIMIN 550 MG TABLET PO SCH ×2 (09:01→20:33)
[2021-08-03] MEDS: MULTIVITAMINS, THERAPEUTIC 15 ML UDCUP PEG SCH (09:02)
[2021-08-03] MEDS: QUEtiapine FUMARATE 25 MG TABLET PEG SCH ×2 (09:02→20:33)
[2021-08-03] MEDS: AmLODIPine BESYLATE 10 MG TABLET PO SCH (09:02)
[2021-08-03] MEDS: DEXTROSE 5%-WATER 1,000 ML IV SCH (12:48)
[2021-08-03 13:59] LABS: GLUCOMETER DEV NAME(LOC) 6N.1; GLUCOSE,POINT OF CARE 211 MG/DL (70-110)
[2021-08-03 16:01] VITALS: BP 112/48
[2021-08-03 17:52] LABS: GLUCOMETER DEV NAME(LOC) 6S.1; GLUCOSE,POINT OF CARE 147 MG/DL (70-110)
[2021-08-03] MEDS: LEVOFLOXACIN 750 MG/D5% WATER 150 ML IV SCH (18:11)
[2021-08-03 19:11] VITALS: BP 128/59
[2021-08-03 23:22] LABS: GLUCOMETER DEV NAME(LOC) 6S.1; GLUCOSE,POINT OF CARE 127 MG/DL (70-110)
[2021-08-04 04:22] VITALS: BP 123/53
[2021-08-04] MEDS: ACETAMINOPHEN 650 MG/20.3 ML SOLUTION UDCUP PEG PRN (05:15)
[2021-08-04 06:35] LABS: GLUCOMETER DEV NAME(LOC) 6S.1; GLUCOSE,POINT OF CARE 119 MG/DL (70-110)
[2021-08-04 07:12] LABS: HEMATOCRIT 27.8 % (36-46); HEMOGLOBIN 9.4 g/dL (12.0-16.0); MEAN CORPUSCULAR HEMOGLOBIN 30.2 pg (26.0-34.0); MEAN CORPUSCULAR HGB CONC 33.9 G/dL (31.0-37.0); MEAN CORPUSCULAR VOLUME 89 fL (80-100); PLATELET COUNT (AUTO) 146 K/uL (150-450); RED BLOOD CELL COUNT(AUTO) 3.12 MIL/uL (4.00-5.20); RED CELL DISTRIBUTION WIDTH 20.9 % (11.5-14.5)
[2021-08-04 07:19] LABS: BAND NEUTROPHILS % (MANUAL) 3 % (0-5); EOSINOPHILS % (MANUAL) 2 % (1-6); LYMPHOCYTES % (MANUAL) 17 % (22-44); MONOCYTES % (MANUAL) 8 % (2-9); SEGMENTED NEUTROPHILS % 70 % (40-70)
[2021-08-04 07:34] LABS: CREATININE 1.1 mg/dL (0.60-1.30); POTASSIUM 4.5 mmol/L (3.5-5.1)
[2021-08-04 07:35] LABS: ALBUMIN 1.5 g/dL (3.4-5.0); BILIRUBIN,TOTAL 0.4 mg/dL (0.1-1.0); CALCIUM, TOTAL 8.2 mg/dL (8.8-10.5); TOTAL PROTEIN, SERUM 8.8 g/dL (6.4-8.2)
[2021-08-04 07:39] VITALS: BP 114/54
[2021-08-04] MEDS: VANCOMYCIN HCL 750 MG in DEXTROSE 5%-WATER 250 ML IV SCH (08:30)
[2021-08-04] MEDS: DEXTROSE 5%-WATER 1,000 ML IV SCH (08:43)
[2021-08-04] MEDS: RIFAXIMIN 550 MG TABLET PO SCH ×2 (09:39→20:15)
[2021-08-04] MEDS: ETHYL ALCOHOL 62% ANTISEPTIC NASAL INHALANT 0.6 ML AMPUL NASAL SCH ×2 (09:39→20:17)
[2021-08-04] MEDS: AmLODIPine BESYLATE 10 MG TABLET PO SCH (09:39)
[2021-08-04] MEDS: QUEtiapine FUMARATE 25 MG TABLET PEG SCH ×2 (09:39→20:15)
[2021-08-04] MEDS: PANTOPRAZOLE SODIUM 40 MG/VIAL IVP SCH ×2 (09:39→20:17)
[2021-08-04] MEDS: DIVALPROEX SODIUM 125 MG DR CAPSULE PEG SCH ×2 (09:39→20:17)
[2021-08-04] MEDS: INSULIN REGULAR, HUMAN 100 UNITS/ML SQ PRN (11:40)
[2021-08-04] MEDS: MULTIVITAMINS, THERAPEUTIC 15 ML UDCUP PEG SCH (12:09)
[2021-08-04 15:14] LABS: GLUCOMETER DEV NAME(LOC) 6S.1; GLUCOSE,POINT OF CARE 163 MG/DL (70-110)
[2021-08-04 15:24] VITALS: BP 109/53
[2021-08-04 19:59] VITALS: BP 129/62
[2021-08-04 21:23] LABS: GLUCOMETER DEV NAME(LOC) 6N.1; GLUCOSE,POINT OF CARE 114 MG/DL (70-110)
[2021-08-05 02:02] LABS: GLUCOMETER DEV NAME(LOC) 6S.1; GLUCOSE,POINT OF CARE 114 MG/DL (70-110)
[2021-08-05 04:41] VITALS: BP 127/67
[2021-08-05] MEDS: DEXTROSE 5%-WATER 1,000 ML IV SCH (04:46)
[2021-08-05] MEDS: INSULIN REGULAR, HUMAN 100 UNITS/ML SQ PRN ×2 (05:58→12:03)
[2021-08-05 06:14] LABS: GLUCOMETER DEV NAME(LOC) 6N.1; GLUCOSE,POINT OF CARE 144 MG/DL (70-110)
[2021-08-05 06:17] LABS: BASOPHILS % (AUTO) 0.3 % (0.0-2.0); EOSINOPHILS % (AUTO) 3.7 % (1.0-6.0); HEMATOCRIT 29.2 % (36-46); LYMPHOCYTES # (AUTO) 1.4 K/uL (1.0-4.8); LYMPHOCYTES % (AUTO) 20.1 % (22.0-44.0); MEAN CORPUSCULAR HEMOGLOBIN 30.2 pg (26.0-34.0); MEAN CORPUSCULAR HGB CONC 34.4 G/dL (31.0-37.0); MEAN CORPUSCULAR VOLUME 88 fL (80-100); MONOCYTES # (AUTO) 0.9 K/uL (0.1-1.0); MONOCYTES % (AUTO) 12.7 % (2.0-9.0); NEUTROPHILS # (AUTO) 4.5 K/uL (1.8-7.7); NEUTROPHILS % (AUTO) 63.2 % (40.0-70.0); PLATELET COUNT (AUTO) 150 K/uL (150-450); RED BLOOD CELL COUNT(AUTO) 3.31 MIL/uL (4.00-5.20)
[2021-08-05 07:07] LABS: ALBUMIN 1.6 g/dL (3.4-5.0); BILIRUBIN,TOTAL 0.4 mg/dL (0.1-1.0); CREATININE 1.25 mg/dL (0.60-1.30); POTASSIUM 4.9 mmol/L (3.5-5.1); TOTAL PROTEIN, SERUM 9.4 g/dL (6.4-8.2); VANCOMYCIN,RANDOM 20.2 mcg/mL (25.0-50.0)
[2021-08-05 07:27] VITALS: BP 133/60
[2021-08-05] MEDS: VANCOMYCIN HCL 750 MG in DEXTROSE 5%-WATER 250 ML IV SCH (07:41)
[2021-08-05] MEDS: QUEtiapine FUMARATE 25 MG TABLET PEG SCH ×2 (08:59→21:00)
[2021-08-05] MEDS: PANTOPRAZOLE SODIUM 40 MG/VIAL IVP SCH ×2 (08:59→21:00)
[2021-08-05] MEDS: MULTIVITAMINS, THERAPEUTIC 15 ML UDCUP PEG SCH (08:59)
[2021-08-05] MEDS: DIVALPROEX SODIUM 125 MG DR CAPSULE PEG SCH ×2 (08:59→21:00)
[2021-08-05] MEDS: AmLODIPine BESYLATE 10 MG TABLET PO SCH (08:59)
[2021-08-05] MEDS: RIFAXIMIN 550 MG TABLET PO SCH ×2 (08:59→21:00)
[2021-08-05] MEDS: ETHYL ALCOHOL 62% ANTISEPTIC NASAL INHALANT 0.6 ML AMPUL NASAL SCH ×2 (09:00→21:00)
[2021-08-05 12:44] LABS: GLUCOMETER DEV NAME(LOC) 6N.1; GLUCOSE,POINT OF CARE 157 MG/DL (70-110)
[2021-08-05 15:11] VITALS: BP 127/64
[2021-08-05] MEDS: LEVOFLOXACIN 750 MG/D5% WATER 150 ML IV SCH (18:20)
[2021-08-05 19:45] VITALS: BP 119/67
[2021-08-05 20:26] LABS: GLUCOMETER DEV NAME(LOC) 6S.1; GLUCOSE,POINT OF CARE 132 MG/DL (70-110)
[2021-08-06 00:26] LABS: GLUCOMETER DEV NAME(LOC) 6S.1; GLUCOSE,POINT OF CARE 103 MG/DL (70-110)
[2021-08-06] MEDS: DEXTROSE 5%-WATER 1,000 ML IV SCH (01:56)
[2021-08-06 04:41] VITALS: BP 139/67
[2021-08-06] MEDS: INSULIN REGULAR, HUMAN 100 UNITS/ML SQ PRN (05:41)
[2021-08-06 06:12] LABS: GLUCOMETER DEV NAME(LOC) 6S.1; GLUCOSE,POINT OF CARE 154 MG/DL (70-110)
[2021-08-06 08:25] VITALS: BP 160/94
[2021-08-06] MEDS: MULTIVITAMINS, THERAPEUTIC 15 ML UDCUP PEG SCH (08:54)
[2021-08-06] MEDS: VANCOMYCIN HCL 750 MG in DEXTROSE 5%-WATER 250 ML IV SCH (08:54)
[2021-08-06] MEDS: AmLODIPine BESYLATE 10 MG TABLET PO SCH (08:55)
[2021-08-06] MEDS: QUEtiapine FUMARATE 25 MG TABLET PEG SCH (08:55)
[2021-08-06] MEDS: RIFAXIMIN 550 MG TABLET PO SCH (08:55)
[2021-08-06] MEDS: PANTOPRAZOLE SODIUM 40 MG/VIAL IVP SCH (08:55)
[2021-08-06] MEDS: DIVALPROEX SODIUM 125 MG DR CAPSULE PEG SCH (08:55)
[2021-08-06] MEDS: ETHYL ALCOHOL 62% ANTISEPTIC NASAL INHALANT 0.6 ML AMPUL NASAL SCH (08:56)
[2021-08-06 09:35] LABS: BASOPHILS % (AUTO) 0.2 % (0.0-2.0); EOSINOPHILS % (AUTO) 5.3 % (1.0-6.0); HEMATOCRIT 30.9 % (36-46); HEMOGLOBIN 10.7 g/dL (12.0-16.0); LYMPHOCYTES # (AUTO) 1.3 K/uL (1.0-4.8); LYMPHOCYTES % (AUTO) 20.3 % (22.0-44.0); MEAN CORPUSCULAR HEMOGLOBIN 30.3 pg (26.0-34.0); MEAN CORPUSCULAR HGB CONC 34.6 G/dL (31.0-37.0); MEAN CORPUSCULAR VOLUME 88 fL (80-100); MONOCYTES # (AUTO) 0.8 K/uL (0.1-1.0); MONOCYTES % (AUTO) 11.9 % (2.0-9.0); NEUTROPHILS % (AUTO) 62.3 % (40.0-70.0); PLATELET COUNT (AUTO) 148 K/uL (150-450); RED BLOOD CELL COUNT(AUTO) 3.53 MIL/uL (4.00-5.20)
[2021-08-06 09:48] LABS: ALBUMIN 1.7 g/dL (3.4-5.0); BILIRUBIN,TOTAL 0.4 mg/dL (0.1-1.0); CALCIUM, TOTAL 8.3 mg/dL (8.8-10.5); CREATININE 1.22 mg/dL (0.60-1.30); TOTAL PROTEIN, SERUM 9.9 g/dL (6.4-8.2)
[2021-08-06 11:30] VITALS: BP 129/75
== END 2021-08-06 11:35 | DRG 710 ==
LOC: EMS 08:38 → 5S 17:41 → 6S 07-11 18:50 → 6N 07-16 23:53 → 6S 08-02 11:30
PROVIDERS: ADMIT Hospitalist; ATTEND Hospitalist
PROC: 0D9670Z Drainage of Stomach with Drainage Device, Via Natural or Artificial Opening (ICD-10-PCS; 2021-06-16)
PROC: 0DU947Z Supplement Duodenum with Autologous Tissue Substitute, Percutaneous Endoscopic Approach (ICD-10-PCS; principal; 2021-06-16 13:30)
PROC: 30233N1 Transfusion of Nonautologous Red Blood Cells into Peripheral Vein, Percutaneous Approach (ICD-10-PCS; 2021-07-03)
PROC: 0W993ZZ Drainage of Right Pleural Cavity, Percutaneous Approach (ICD-10-PCS; 2021-07-09)
PROC: 0DH63UZ Insertion of Feeding Device into Stomach, Percutaneous Approach (ICD-10-PCS; 2021-07-30)
DX: A41.9 Sepsis, unspecified organism (principal); R65.21 Severe sepsis with septic shock; K65.0 Generalized (acute) peritonitis; K31.6 Fistula of stomach and duodenum; G93.40 Encephalopathy, unspecified; K26.5 Chronic or unspecified duodenal ulcer with perforation; E43 Unspecified severe protein-calorie malnutrition; N17.9 Acute kidney failure, unspecified; E87.0 Hyperosmolality and hypernatremia; J18.9 Pneumonia, unspecified organism; I51.3 Intracardiac thrombosis, not elsewhere classified; R18.8 Other ascites; F29 Unspecified psychosis not due to a substance or known physiological condition; K74.60 Unspecified cirrhosis of liver; F15.10 Other stimulant abuse, uncomplicated; I25.10 Atherosclerotic heart disease of native coronary artery without angina pectoris; K66.0 Peritoneal adhesions (postprocedural) (postinfection); K76.0 Fatty (change of) liver, not elsewhere classified; Z20.822 Contact with and (suspected) exposure to COVID-19; I10 Essential (primary) hypertension; I48.91 Unspecified atrial fibrillation; E87.5 Hyperkalemia; R13.10 Dysphagia, unspecified; E11.9 Type 2 diabetes mellitus without complications; J90 Pleural effusion, not elsewhere classified; N39.0 Urinary tract infection, site not specified; D68.9 Coagulation defect, unspecified; R62.7 Adult failure to thrive; Z91.19 Patient's noncompliance with other medical treatment and regimen; Z86.711 Personal history of pulmonary embolism; Z86.73 Personal history of transient ischemic attack (TIA), and cerebral infarction without residual deficits; Z83.3 Family history of diabetes mellitus; Z78.1 Physical restraint status; Z86.718 Personal history of other venous thrombosis and embolism; Z68.1 Body mass index [BMI] 19.9 or less, adult
CPT/HCPCS: 32555; 70450; 71045; 74018; 74175; 74246; 76700; 76942; 80048; 80053; 80164; 80202; 81001; 81002; 82040; 82042; 82140; 82150; 82465; 82945; 82962; 83605; 83615; 83690; 83735; 84100; 84132; 84157; 84439; 84443; 84702; 85025; 85610; 85730; 86592; 86850; 86900; 86901; 86923; 87040; 87070; 87081; 87086; 87101; 87186; 87205; 87389; 89051; 92526; 92610; 93005; 93306; 94640; 97163; 99285; C9113; C9290; G0378; G0480; J0610; J0637; J0690; J1644; J1815; J1885; J1956; J2060; J2250; J2270; J2370; J2405; J2543; J2704; J3010; J3370; J3475; J3490; J7030; J7040; J7050; J7060; J7070; J7120; J7131; P9016; P9047; Q9967; 36415-L1; 36415-TC; J7613; X7700; Z7610